=== PATIENT | male | born 1950 | race American Indian/Alaskan Native ===

== ENCOUNTER 2017-02-21 15:35 | Inpatient (IN) | payer MEDICARE, MEDICAID ==
[2017-02-21 15:35] VITALS: BMI 30.5
--- NOTE | 2017-02-21 16:48 | ED PDOC ---
Syncope/Near Syncope/Dizziness Time Seen by Provider: 02/21/17 15:52 Chief Complaint (Nursing): Syncope Chief Complaint (Provider): Syncope History Per: Patient History/Exam Limitations: no limitations Onset/Duration Of Symptoms: Days (2x) Current Symptoms Are (Timing): Still Present Activity At Onset Of Symptoms: Sitting Fall Associated With With Symptoms: Yes, Positive Injury (patient fell on his head, complains of right hip and lower back pain.) Severity: Moderate Additional Complaint(s): 66 year old male with a pertinent medical history of end stage renal disease presents to the ED with complaints of 2 episodes of syncope that occurred yesterday. He reports that he was watching tv yesterday, and passed out 2x times. On the second time, he fell on his head, and now has complaints of right hip and lower back pain. He also reports that he missed dialysis today. Patient denies having any other medical complaints. PMD: Dr. Byers (Non-[facility] provider). Past Medical History Reviewed: Historical Data, Nursing Documentation, Vital Signs Vital Signs: Last Vital Signs Temp 97.8 F 02/21/17 15:37 Pulse 82 02/21/17 15:37 Resp 18 02/21/17 15:37 BP 151/88 H 02/21/17 15:37 Pulse Ox 96 02/21/17 15:37 - Medical History PMH: Anemia, Cardia Arrhythmia, CHF, HTN, Peripheral Edema, Pneumonia (2006), End Stage Renal Disease (on dialysis MWF left arm shunt), Chronic Kidney Disease Denies: Kidney Stones - Surgical History Surgical History: Pacemaker, Tonsillectomy - Family History Family History: States: CAD, Hypertension - Social History Current smoker - smoking cessation education provided: No Alcohol: None Drugs: Denies - Immunization History Hx Tetanus Toxoid Vaccination: No Hx Influenza Vaccination: Yes Hx Pneumococcal Vaccination: Yes - Home Medications Home Medications: Ambulatory Orders Medication Instructions Recorded Amiodarone HCl [Amiodarone HCl] 100 mg PO DAILY 02/21/17 Aspirin [Ecotrin] 81 mg PO DAILY 02/21/17 Losartan [Cozaar] 50 mg PO DAILY 02/21/17 Sevelamer Carbonate [Renvela] 2,400 mg PO TID 02/21/17 Vit B Cmplx 3/Folic AC/C/Biot 1 tab PO DAILY 02/21/17 [Amara-Jacqueline Rx Tablet] amLODIPine [Norvasc] 5 mg PO DAILY 02/21/17 - Allergies Allergies/Adverse Reactions: Allergies Allergy/AdvReac Type Severity Reaction Status Date / Time venice inhibitors Allergy Mild ANAPHYLAXIS Uncoded 11/29/16 20:14 Review of Systems ROS Statement: Except As Marked, All Systems Reviewed And Found Negative Musculoskeletal: Positive for: Back Pain (lower back pain), Other (right hip pain) Physical Exam - Reviewed Nursing Documentation Reviewed: Yes Vital Signs Reviewed: Yes - Physical Exam Appears: Positive for: Well (Patient is uncooperative during physcial exam), Non -toxic, No Acute Distress Head Exam: Positive for: ATRAUMATIC, NORMOCEPHALIC Skin: Positive for: Normal Color, Warm, Dry Cardiovascular/Chest: Positive for: Regular Rate, Rhythm Respiratory: Positive for: Normal Breath Sounds. Negative for: Respiratory Distress Extremity: Positive for: Other (right hip pain) Neurologic/Psych: Positive for: Alert, Oriented (3x) - Laboratory Results Result Diagrams: 02/22/17 05:00 02/22/17 05:00 - ECG Interpretation Of ECG: SR @ 62, 1st degree AVB, RBBB. O2 Sat by Pulse Oximetry: 96 (RA) Pulse Ox Interpretation: Normal - CT Scan/US CT head Other Rad Studies (CT/US): Radiology Report Reviewed (No evidence of acute intracranial hemorrhage intracranial collection mass effect or midline shift. Efuw-mp-uupdoswp atrophy and segd-zz-ritsowsk white matter changes likely represent chronic microvascular ischemic disease.) CT R hip Other Rad Studies (CT/US): Radiology Report Reviewed (No evidence of acute fracture or dislocation at the right hip. Mild to moderate osteoarthritic changes. Ubzr-wq-bgjoltzz subcutaneous stranding seen adjacent to the right hip likely represent posttraumatic changes. ) - Physician Consult Information Physician Contacted: Morgan Rayo Outcome Of Conversation: Labs discussed, K WNL, will dialyze tomorrow. Medical Decision Making Medical Decision Makin:52 Initial impression: 66 year old female with syncope, back pain, hip pain, and missed dialysis. Initial plan: * CT head w/o contrast * CT hip w/o contrast * CT lumbar spine w/o contrast * EKG * BMP * CMP * troponin I * udip * CBC * PT/PTT * accucheck * urinalysis * reevaluation Scribe Attestation: Documented by Robyn Wilkes, acting as a scribe for Joanna Adnres MD. Provider Scribe Attestation: All medical record entries made by the Scribe were at my direction and personally dictated by me. I have reviewed the chart and agree that the record accurately reflects my personal performance of the history, physical exam, medical decision making, and the department course for this patient. I have also personally directed, reviewed, and agree with the discharge instructions and disposition. Disposition - Clinical Impression Clinical Impression: Syncope, ESRD needing dialysis - Patient ED Disposition Is Patient to be Admitted: Yes - Disposition Disposition Time: 18:14 Condition: STABLE - Pt Status Changed To: Hospital Disposition Of: Inpatient - Admit Certification Admit to Inpatient:: After my assessment, the patient will require hospitalization for at least two midnights. This is because of the severity of symptoms shown, intensity of services needed, and/or the medical risk in this patient being treated as an outpatient. - POA Present On Arrival: Falls Or Trauma
[2017-02-21 17:11] LABS: BASO % 1.1 % (0.0-2.0); EOS # 0.2 K/uL (0.0-0.7); EOS % 4.7 % (0.0-4.0); HEMATOCRIT 35.5 % (35.0-51.0); LYMPH # 0.5 K/uL (1.0-4.3); LYMPH % 14.5 % (20.0-40.0); MEAN CELL VOLUME 104.1 fl (80.0-94.0); MEAN CORPUSCULAR HGB CONC 32.7 g/dL (33.0-37.0); MEAN PLATELET VOLUME 7.6 fl (7.2-11.7); MONO # 0.7 K/uL (0.0-0.8); MONO % 18.6 % (0.0-10.0); NEUT # 2.3 K/uL (1.8-7.0); NEUT % 61.1 % (50.0-75.0); NRBC % 0.1 % (0.0-0.0); WHITE BLOOD COUNT 3.8 K/uL (4.8-10.8)
[2017-02-21 17:30] LABS: ALB/GLOB RATIO 0.9 (1.0-2.1); BILIRUBIN,TOTAL 0.7 mg/dl (0.2-1.3); CALCIUM 9.2 mg/dL (8.4-10.2); TOTAL PROTEIN 8.4 G/DL (6.3-8.2)
[2017-02-21 17:43] LABS: TROPONIN I 0.02 ng/mL (0.00-0.120)
[2017-02-21 17:50] LABS: PARTIAL THROMBOPLASTIN TIME 39.2 Seconds (25.6-37.1)
--- NOTE | 2017-02-21 17:58 | CT ---
PROCEDURE: CT HEAD WITHOUT CONTRAST. HISTORY: Vertigo COMPARISON: None available. TECHNIQUE: Axial computed tomography images were obtained through the head/brain without intravenous contrast. Radiation dose: Total exam DLP = 904.06 mGy-cm. This CT exam was performed using one or more of the following dose reduction techniques: Automated exposure control, adjustment of the mA and/or kV according to patient size, and/or use of iterative reconstruction technique. FINDINGS: HEMORRHAGE: No intracranial hemorrhage. BRAIN: No mass effect or edema. Wgro-vp-iobucpun atrophy is noted. Vwol-wf-ndzzlsrj white matter changes are also noted suggestive but nonspecific for chronic microvascular ischemic disease. VENTRICLES: Unremarkable. No hydrocephalus. CALVARIUM: Unremarkable. PARANASAL SINUSES: Unremarkable as visualized. No significant inflammatory changes. MASTOID AIR CELLS: Unremarkable as visualized. No inflammatory changes. OTHER FINDINGS: Suboptimal assessment of the posterior fossa due to the patient's position and streak artifacts. IMPRESSION: No evidence of acute intracranial hemorrhage intracranial collection mass effect or midline shift. Wptq-wl-etlkwvnx atrophy and ixqn-zi-wlqyfbne white matter changes likely represent chronic microvascular ischemic disease.
--- NOTE | 2017-02-21 18:36 | CT ---
PROCEDURE: CT of the right hip without contrast HISTORY: Fall COMPARISON: No prior similar study available for comparison. TECHNIQUE: 2.5 millimeter axial and reformatted coronal and sagittal CT images of the right hip were obtained without IV contrast administration. Total exam DLP: 257.57 FINDINGS: There is no evidence of acute displaced fracture or dislocation at the right hip. Subcutaneous stranding and possible small fluid seen adjacent and lateral to the right femur greater trochanter likely represent posttraumatic changes. No evidence of drainable fluid collection or large hematoma. There is well corticated ossicles seen adjacent to the right femur likely represent soft tissue/ligament calcification. No evidence of joint effusion. Slightly prominent right groin lymph nodes seen. IMPRESSION: No evidence of acute fracture or dislocation at the right hip. Mild to moderate osteoarthritic changes. Llnc-ju-mivnxbwh subcutaneous stranding seen adjacent to the right hip likely represent posttraumatic changes. .
[2017-02-22 07:10] LABS: HEMATOCRIT 33.6 % (35.0-51.0); MEAN CELL VOLUME 103.4 fl (80.0-94.0); MEAN CORPUSCULAR HEMOGLOBIN 33.8 pg (27.0-31.0); MEAN CORPUSCULAR HGB CONC 32.7 g/dL (33.0-37.0); RED CELL DISTRIBUTION WIDTH 17.8 % (11.5-14.5); WHITE BLOOD COUNT 3.5 K/uL (4.8-10.8)
[2017-02-22 07:18] LABS: ALB/GLOB RATIO 0.9 (1.0-2.1); BILIRUBIN,TOTAL 0.7 mg/dl (0.2-1.3); CALCIUM 8.5 mg/dL (8.4-10.2); POTASSIUM 3.7 MMOL/L (3.6-5.0); TOTAL PROTEIN 7.5 G/DL (6.3-8.2)
--- NOTE | 2017-02-22 08:21 | CARD ---
APPROVED REPORT EKG Measurement Heart [id number] <Conclusion> Sinus rhythm with 1st degree AV block with premature atrial complexes Left axis deviation Non specific IVCD Left ventricular hypertrophy with repolarization abnormality Abnormal ECG
--- NOTE | 2017-02-22 08:54 | CT ---
PROCEDURE: CT Lumbar Spine without contrast HISTORY: Fall COMPARISON: None. TECHNIQUE: Axial computed tomography images were obtained of the lumbar spine without the use of intravenous contrast. Coronal and sagittal reformatted images were created and reviewed. Radiation dose: Total exam DLP = 1004.66 mGy-cm. This CT exam was performed using one or more of the following dose reduction techniques: Automated exposure control, adjustment of the mA and/or kV according to patient size, and/or use of iterative reconstruction technique. FINDINGS: VERTEBRAE: The vertebral bodies are maintained in height. There is extensive erosion/ destruction of the right lateral aspect of the L3-4 disc space with involvement of the inferior L 3 vertebral endplate and lesser involvement of the superior L4 vertebral endplate. There are large osteophytes seen about the anterior aspect of the disc space on the right side. There is extensive disc bulge. This most likely reflects chronic degenerative change with intravertebral disc herniation. The possibility of discitis/osteomyelitis must be considered, however, and clinical and laboratory is requested. There is a healing fracture of the right L2 transverse process. Callus is seen about the fracture site. There is a healing fracture of the right L3 transverse process with callus seen about the fracture site. There is an old fracture of the left L4 transverse process without evidence of callus spoke with sclerotic margins and likely nonunion. No other fracture is identified. DISCS/SPINAL CANAL/NEURAL FORAMINA: L1-2: Unremarkable. L2-3: Minimal disc bulge. No focal herniation. Minimal bilateral neural foraminal stenosis. No central spinal stenosis. L3-4: Extensive diffuse disc bulge without focal herniation. Bilateral ligamentum flavum hypertrophy and degenerative facet arthropathy. Small Schmorl's nodes in the inferior L3 and superior L4 vertebral endplates. Moderate to severe bilateral neural foraminal stenosis. Minimal central spinal stenosis. L4-5: Diffuse disc bulge. Destruction/ erosion of the right lateral aspect of the vertebral endplates about the disc space as described above. No focal disc herniation. Bilateral ligamentum flavum hypertrophy. Severe right neural foraminal stenosis. Moderate left neural foraminal stenosis. Mild central spinal stenosis. There is mild paraspinous soft tissue circumferentially about the L4-5 disc space. Again this may be a sign of discitis/osteomyelitis. L5-S1: Diffuse disc bulge. No focal disc herniation. Mild bilateral ligamentum flavum hypertrophy. Mild right and moderate left neural foraminal stenosis. No central spinal stenosis. There is mild levo scoliotic curvature. There is grade 1 lateral listhesis of L3 on L4. There is no other listhesis evident. PARASPINAL SOFT TISSUES: As above OTHER FINDINGS: None. IMPRESSION: Healing fracture right L2 and L3 transverse processes. Old fracture left L4 transverse process without evidence of callus but with nonunion. Questionable severe intravertebral disc herniation with endplate erosion versus discitis/osteomyelitis at L4-5. Multilevel disc bulge without evidence of focal herniation. Multilevel neural foraminal stenosis as above. Multilevel mild central spinal stenosis most pronounced at L3-4. Recommend further evaluation with MRI with gadolinium if there is clinical concern for discitis/osteomyelitis based on clinical and laboratory evaluation. This is potentially suspected at the L4-5 disc space level as above. Preliminary interpretation of this examination was reported by [facility] at 7:25 p.m. on 02/21/2017. There is concurrence of this report with the preliminary interpretation.
[2017-02-22] MEDS: Multivitamin Vitamin B Complex (Nephro-Vite) Tab PO SCH (09:10)
--- NOTE | 2017-02-22 09:49 | CP.PCM.CON ---
History of Present Illness - History of Present Illness History of Present Illness: This patient who is 66 years old was admitted because of syncope more than once I told him for which she came to the emergency room. Patient known with end stage renal disease on maintenance hemodialysis for about 10 years. She has history of hypertension and no diabetes was described and perhaps peripheral vascular disease? Patient usually goes to dialysis unit with 3 hours and 30 to 3 hours and 45 minutes` Review of system as noted Past medical surgery as noted the has a shunt of the left upper arm No chest pain reported patient has pacemaker he described it wireless Review of Systems - Constitutional Constitutional: Anorexia. absent: Chills - EENT Eyes: As Per HPI Nose/Mouth/Throat: absent: Epistaxis - Cardiovascular Cardiovascular: Dyspnea on Exertion, Lightheadedness. absent: Chest Pain - Respiratory Respiratory: absent: Cough - Gastrointestinal Gastrointestinal: absent: Abdominal Pain - Genitourinary Genitourinary: Nocturia - Musculoskeletal Musculoskeletal: Muscle Weakness - Neurological Neurological: Frequent Falls Past Patient History - Infectious Disease Hx of Infectious Diseases: None - Past Medical History & Family History Past Medical History?: Yes - Past Social History Smoking Status: Never Smoked - CARDIAC Hx Cardiac Disorders: Yes Hx Congestive Heart Failure: Yes Hx Hypertension: Yes Hx Pacemaker: Yes Hx Peripheral Edema: Yes - PULMONARY Hx Pneumonia: Yes (2006) - NEUROLOGICAL Hx Neurological Disorder: Yes Hx Syncope: Yes Other/Comment: COMATOSE 1 MONTH 2008 DUE TO RENAL FAILURE - HEENT Hx HEENT Problems: No Other/Comment: L - RENAL Hx Chronic Kidney Disease: Yes Hx Dialysis: Yes - ENDOCRINE/METABOLIC Hx Endocrine Disorders: No - HEMATOLOGICAL/ONCOLOGICAL Hx AIDS: No Hx Anemia: Yes Hx Human Immunodeficiency Virus (HIV): No - INTEGUMENTARY Hx Dermatological Problems: Yes Other/Comment: CHRONIC PRIRITUS - MUSCULOSKELETAL/RHEUMATOLOGICAL Hx Musculoskeletal Disorders: No Hx Falls: Yes - GASTROINTESTINAL Hx Gastrointestinal Disorders: Yes Other/Comment: ABD HERNIA HISTORY FEEDING TUBE INSERTION AND REMOVAL - GENITOURINARY/GYNECOLOGICAL Hx Genitourinary Disorders: No - PSYCHIATRIC Hx Psychophysiologic Disorder: No Hx Substance Use: No - SURGICAL HISTORY Hx Tonsillectomy: Yes - ANESTHESIA Hx Anesthesia: Yes Hx Anesthesia Reactions: No Hx Malignant Hyperthermia: No Meds Allergies/Adverse Reactions: Allergies Allergy/AdvReac Type Severity Reaction Status Date / Time venice inhibitors Allergy Mild ANAPHYLAXIS Uncoded 11/29/16 20:14 - Medications Medications: Current Medications Amiodarone HCl (Cordarone) 100 mg PO DAILY [facility] Last Admin: 02/22/17 09:11 Dose: 100 mg Amlodipine Besylate (Norvasc) 5 mg PO DAILY [facility] Last Admin: 02/22/17 09:09 Dose: Not Given Aspirin (Ecotrin) 81 mg PO DAILY [facility] Last Admin: 02/22/17 09:10 Dose: 81 mg Ibuprofen (Motrin Tab) 600 mg PO Q6 PRN PRN Reason: Pain, moderate (4-7) Last Admin: 02/22/17 01:06 Dose: 600 mg Losartan Potassium (Cozaar) 50 mg PO DAILY [facility] Last Admin: 02/22/17 09:08 Dose: Not Given Sevelamer HCl (Renagel) 2,400 mg PO TID [facility] Last Admin: 02/22/17 09:10 Dose: 2,400 mg Vitamin B Complex/Vit C/Folic Acid (Nephro-Jacqueline) 1 tab PO DAILY [facility] Last Admin: 02/22/17 09:10 Dose: 1 tab Physical Exam - Constitutional Appears: No Acute Distress - ENT Exam ENT Exam: Mucous Membranes Moist - Respiratory Exam Respiratory Exam: NORMAL BREATHING PATTERN. absent: Chest Wall Tenderness - Cardiovascular Exam Cardiovascular Exam: absent: JVD, Rubs - GI/Abdominal Exam GI & Abdominal Exam: Normal Bowel Sounds - Extremities Exam Extremities exam: Negative for: calf tenderness - Back Exam Back exam: absent: CVA tenderness (L), CVA tenderness (R) - Neurological Exam Neurological exam: Alert Results - Vital Signs Recent Vital Signs: Last Vital Signs Temp 97.1 F L 02/22/17 08:00 Pulse 54 L 02/22/17 09:11 Resp 20 02/22/17 08:00 BP 145/76 02/22/17 09:11 Pulse Ox 98 02/22/17 08:00 - Labs Result Diagrams: 02/22/17 05:00 02/22/17 05:00 Labs: Laboratory Results - last 24 hr 02/22/17 02/22/17 05:00 05:00 WBC 3.5 L RBC 3.24 L Hgb 11.0 L Hct 33.6 L MCV 103.4 H MCH 33.8 H MCHC 32.7 L RDW 17.8 H Plt Count 165 ESR 37 H Sodium 138 Potassium 3.7 Chloride 94 L Carbon Dioxide 32 H Anion Gap 16 BUN 77 H Creatinine 10.3 H* Est GFR ( Amer) 6 Est GFR (Non-Af Amer) 5 Random Glucose 73 L Calcium 8.5 Total Bilirubin 0.7 AST 22 ALT 29 Alkaline Phosphatase 113 Total Protein 7.5 Albumin 3.5 Globulin 4.0 H Albumin/Globulin Ratio 0.9 L Assessment & Plan (1) Syncope Status: Acute - Assessment and Plan (Free Text) Assessment: Patient with end stage renal disease due to have dialysis this morning , arrangement has been done and consent was taken Patient stated did take from him about 2 L approximately Potassium bath 2 mEq Sodium bath 138 Bicarbonate bath 34 Ultrafiltration about 2000 as tolerated Patient been having workup for the syncope cardiac evaluation as well.
--- NOTE | 2017-02-22 11:01 | CP.PCM.PN ---
Subjective - Date & Time of Evaluation Date of Evaluation: 02/22/17 Time of Evaluation: 11:01 - Subjective Subjective: pt seen and examined at bedside this morning. No acute events overnight. Lying in bed, comfortably, NAD. Reports feeling better this morning and slept well overnight. No new complaints. Denies fever/chills, headaches, changes in vision , CP/SOB/MILLER/palpitations, N/V/D/C, urinary symptoms, new onset numbness/ tingling. Objective - Vital Signs/Intake and Output Vital Signs (last 24 hours): Temp Pulse Resp BP Pulse Ox 97.1 F L 67 20 168/87 H 96 02/22/17 08:00 02/22/17 09:50 02/22/17 08:00 02/22/17 09:50 02/22/17 10:51 - Medications Medications: Current Medications Amiodarone HCl (Cordarone) 100 mg PO DAILY [facility] Last Admin: 02/22/17 09:11 Dose: 100 mg Amlodipine Besylate (Norvasc) 5 mg PO DAILY [facility] Last Admin: 02/22/17 09:09 Dose: Not Given Aspirin (Ecotrin) 81 mg PO DAILY [facility] Last Admin: 02/22/17 09:10 Dose: 81 mg Ibuprofen (Motrin Tab) 600 mg PO Q6 PRN PRN Reason: Pain, moderate (4-7) Last Admin: 02/22/17 01:06 Dose: 600 mg Losartan Potassium (Cozaar) 50 mg PO DAILY [facility] Last Admin: 02/22/17 09:08 Dose: Not Given Sevelamer HCl (Renagel) 2,400 mg PO TID [facility] Last Admin: 02/22/17 09:10 Dose: 2,400 mg Vitamin B Complex/Vit C/Folic Acid (Nephro-Jacqueline) 1 tab PO DAILY [facility] Last Admin: 02/22/17 09:10 Dose: 1 tab - Labs Labs: 02/22/17 05:00 02/22/17 05:00 PT 13.8 Seconds (9.8-13.1) H 02/21/17 17:14 INR 1.2 (0.9-1.2) 02/21/17 17:14 APTT 39.2 Seconds (25.6-37.1) H 02/21/17 17:14 - Constitutional Appears: Non-toxic, No Acute Distress - Eye Exam Eye Exam: EOMI Pupil Exam: PERRL - ENT Exam ENT Exam: Mucous Membranes Moist - Respiratory Exam Respiratory Exam: Clear to Ausculation Bilateral, NORMAL BREATHING PATTERN. absent: Accessory Muscle Use, Rales, Rhonchi, Wheezes - Cardiovascular Exam Cardiovascular Exam: REGULAR RHYTHM, RRR, +S1, +S2. absent: Tachycardia, Gallop , Rubs, Murmur - GI/Abdominal Exam GI & Abdominal Exam: Soft, Normal Bowel Sounds. absent: Distended, Firm, Guarding, Rigid, Tenderness - Extremities Exam Additional comments: hyperkeratosis b/l with profuse skin flaking. No edema, erythema, discharge - Neurological Exam Neurological Exam: Alert, Awake, Oriented x3 Assessment and Plan (1) Syncope Assessment & Plan: -placed on telemetry for monitoring -pt has pacemaker placed -neurology consult appreciated -CMP remarkable for Cr of 10.3, otherwise wnl -CBC wnl -carotid/vertebral doppler: pending Status: Acute (2) ESRD needing dialysis Assessment & Plan: -nephrology consult with Dr. Rayo -pt to go for HD today, consent signed Status: Chronic (3) Hyperkeratosis Assessment & Plan: podiatry consult appreciated Status: Acute
--- NOTE | 2017-02-22 13:27 | US ---
PROCEDURE: Carotid vertebral duplex sonography. HISTORY: Syncope COMPARISON: None available. TECHNIQUE: Grayscale, color Doppler and spectral Doppler assessment of the carotid system bilaterally. This includes common carotid, internal carotid arteries Vertebral artery assessment with respect to direction of flow (antegrade or retrograde) FINDINGS: RIGHT carotid system: Assessment of plaque: Tortuous right ICA. Heterogeneous partially calcified plaque identified. Peak systolic ICA velocity: 207.9 cm/sec End-diastolic velocity: 37.9 cm/sec ICA/CCA ratio: 3.3 Vertebral artery flow: Antegrade LEFT carotid system: Assessment of plaque: Tortuous left ICA. Heterogeneous plaque formation. Peak systolic ICA velocity: 121.8 cm/sec End-diastolic velocity: 21.2 cm/sec ICA/CCA ratio: 1.4 Vertebral artery flow: Antegrade IMPRESSION: Right ICA degree of stenosis: 50- 69%. Left ICA degree of stenosis: Less than 50% Reference Internal Carotid Artery (ICA) Peak Systolic Velocity (PSV) for above: 1. Less than 50% stenosis less than 125 cm/s peak systolic velocity 2. 50-69% stenosis 125-230cm/s peak systolic velocity 3. Greater than 70% but less than near occlusion greater than 230 cm/s peak systolic velocity
[2017-02-23 08:50] LABS: ALB/GLOB RATIO 0.8 (1.0-2.1); BILIRUBIN,TOTAL 0.8 mg/dl (0.2-1.3); CALCIUM 8.7 mg/dL (8.4-10.2); TOTAL PROTEIN 8.1 G/DL (6.3-8.2)
[2017-02-23] MEDS: Multivitamin Vitamin B Complex (Nephro-Vite) Tab PO SCH (09:28)
--- NOTE | 2017-02-23 09:48 | CP.PCM.HP ---
History of Present Illness - History of Present Illness History of Present Illness: 66 y/o male with a PMHx remarkable for HTN, ESRD presented to the ED with complaints of 2 episodes of syncope that occurred 02/21/2017. He reports that he was watching tv, and passed out suddenly 2x times. On the second time, he fell on his head, and now has complaints of right hip and lower back pain. Both episodes of syncope where with sudden loss of consicousness and with sudden regaining of consciousness as well. He denies any post syncopal confusion, delerium, lethargy, N/V. He also reports that he missed dialysis appt on 02/22. No other complaints. Denies fever/chills, headaches, changes in vision, CP/SOB/ MILLER, N/V/D/C, urinary symptoms, numbness/tingling. PMD: Dr. Byers (nephro) PMHx: ESRD, on weekly dialysis, HTN Meds: Sevelamer, Amiodarone, Losartan, Aspirin, Amlodipine ALL: Brandon Inhibitors SocialHx: lives by himself, denies ETOH, tobacco, drug abuse FamilyHx: noncontributory ED COURSE: Vitals On Presentation: 97.8, BP 151/88, HR 82, RR 16, POX 96% on 2 L NC Imaging Ordered: CT head w/o contrast CT hip w/o contrast CT lumbar spine w/o contrast EKG Labs Ordered: BMP CMP troponin I udip CBC PT/PTT accucheck urinalysis Pt admitted to telemetry Present on Admission - Present on Admission Any Indicators Present on Admission: No Review of Systems - Review of Systems All systems: reviewed and no additional remarkable complaints except - Constitutional Constitutional: As Per HPI Past Patient History - Infectious Disease Hx of Infectious Diseases: None - Past Medical History & Family History Past Medical History?: Yes - Past Social History Smoking Status: Never Smoked Alcohol: None Drugs: Denies Home Situation {Lives}: Alone Domestic Violence: Negative - CARDIAC Hx Cardia Arrhythmia: Yes Hx Congestive Heart Failure: Yes Hx Hypertension: Yes Hx Pacemaker: Yes Hx Peripheral Edema: Yes - PULMONARY Hx Pneumonia: Yes (2006) - NEUROLOGICAL Hx Neurological Disorder: Yes Hx Syncope: Yes Other/Comment: COMATOSE 1 MONTH 2007 DUE TO RENAL FAILURE - HEENT Hx HEENT Problems: No Other/Comment: L - RENAL Hx Chronic Kidney Disease: Yes Hx Kidney Stones: No - ENDOCRINE/METABOLIC Hx Endocrine Disorders: No - HEMATOLOGICAL/ONCOLOGICAL Hx Anemia: Yes - INTEGUMENTARY Hx Dermatological Problems: Yes Other/Comment: CHRONIC PRIRITUS - GASTROINTESTINAL Hx Gastrointestinal Disorders: Yes Other/Comment: ABD HERNIA HISTORY FEEDING TUBE INSERTION AND REMOVAL - GENITOURINARY/GYNECOLOGICAL Hx Genitourinary Disorders: No - PSYCHIATRIC Hx Psychophysiologic Disorder: No Hx Substance Use: No - SURGICAL HISTORY Hx Tonsillectomy: Yes - ANESTHESIA Hx Anesthesia: Yes Hx Anesthesia Reactions: No Hx Malignant Hyperthermia: No Meds Allergies/Adverse Reactions: Allergies Allergy/AdvReac Type Severity Reaction Status Date / Time brandon inhibitors Allergy Mild ANAPHYLAXIS Uncoded 11/29/16 20:14 Physical Exam - Constitutional Appears: Non-toxic, No Acute Distress - Head Exam Head Exam: ATRAUMATIC, NORMOCEPHALIC - Eye Exam Eye Exam: EOMI. absent: Conjunctival injection, Scleral icterus Pupil Exam: PERRL - ENT Exam ENT Exam: Mucous Membranes Moist - Neck Exam Neck exam: Positive for: Full Rom. Negative for: Lymphadenopathy, Tenderness, Thyromegaly - Respiratory Exam Respiratory Exam: Clear to Auscultation Bilateral, NORMAL BREATHING PATTERN. absent: Chest Wall Tenderness, Rales, Rhonchi, Wheezes - Cardiovascular Exam Cardiovascular Exam: REGULAR RHYTHM, RRR, +S1, +S2. absent: Tachycardia, Gallop , JVD, Rubs, Systolic Murmur - GI/Abdominal Exam GI & Abdominal Exam: Normal Bowel Sounds, Soft. absent: Distended, Firm, Guarding, Rigid - Extremities Exam Extremities exam: Positive for: full ROM, pedal pulses present. Negative for: calf tenderness, joint swelling, pedal edema, tenderness Additional comments: diffuse hyperkeratosis b/l, unkept, macronychia. - Neurological Exam Neurological exam: Alert, CN II-XII Intact, Oriented x3 - Psychiatric Exam Psychiatric exam: Normal Affect, Normal Mood - Skin Skin Exam: Dry, Intact Results - Vital Signs Recent Vital Signs: Last Vital Signs Temp 97.6 F 02/23/17 08:35 Pulse 65 02/23/17 09:30 Resp 20 02/23/17 08:35 BP 114/66 02/23/17 09:30 Pulse Ox 97 02/23/17 08:35 - Labs Result Diagrams: 02/22/17 05:00 02/23/17 07:40 Labs: Laboratory Results - last 24 hr 02/22/17 02/22/17 02/22/17 14:30 14:30 15:57 Sodium Potassium Chloride Carbon Dioxide Anion Gap BUN Creatinine Est GFR ( Amer) Est GFR (Non-Af Amer) POC Glucose (mg/dL) 97 Random Glucose Calcium Total Bilirubin AST ALT Alkaline Phosphatase Total Protein Albumin Globulin Albumin/Globulin Ratio Hep Bs Antigen Negative Hep Bs Antibody Negative Hepatitis C Antibody Reactive H 02/22/17 02/23/17 21:34 07:40 Sodium 136 Potassium 4.0 Chloride 99 Carbon Dioxide 26 Anion Gap 15 BUN 41 H Creatinine 6.7 H Est GFR ( Amer) 10 Est GFR (Non-Af Amer) 8 POC Glucose (mg/dL) 169 H Random Glucose 65 L Calcium 8.7 Total Bilirubin 0.8 AST 24 ALT 22 Alkaline Phosphatase 109 Total Protein 8.1 Albumin 3.6 Globulin 4.5 H Albumin/Globulin Ratio 0.8 L Hep Bs Antigen Hep Bs Antibody Hepatitis C Antibody Assessment & Plan (1) Syncope Assessment and Plan: Labs and imaging reviewed CBC wnl CMP: K+ wnl, BUN 73, Cr 9.3 Carotid u/s: YULIANA 50-69% stenosis, LICA <50% stenosis Head CT: chronic changes, no acute hemorrhage or injury Hip CT: negative to acute fracture/dislocation EKG: SR, 1st degree AV block, PAC, nonspecific ICVD cardiology consult appreciated neurology consult appreciated Status: Acute (2) ESRD needing dialysis Assessment and Plan: Nephrology consults appreciated (Dr. Rayo) -pt for HDL 02/22 -will f/u CMP Status: Chronic (3) Hyperkeratosis Assessment and Plan: podiatry consult appreciated Status: Chronic (4) Hypertension Assessment and Plan: c/w home meds Status: Chronic
--- NOTE | 2017-02-23 12:38 | CP.PCM.CON ---
History of Present Illness - History of Present Illness History of Present Illness: NEURO CONSULT NOTE: 02/23/17 CHIEF COMPLAINT: SYNCOPE HPI: THIS IS A 66 YEAR OLD AAM WITH HISTORY OF ESRD ON HD, HTN, HLD, CARDIOMYOPATHY S /P AICD HAD TWO SYNCOPAL EPISODES AT HOME. NO SEIZURES LIKE SYMPTOMS OR EPISODES. CT HEAD SHOWED NO ACUTE ABNORMALITY. CAROTID DOPPLER RIGHT ICA STENOSIS 50-69% AND 20-39% LEFT ICA STENOSIS. NEURO EXAM IS NON-FOCAL. CURRENT NO FURTHER SYNCOPAL EPISODES. HE IS DECONDITIONED. ROS: 14 POINT REVIEW OF SYMPTOMS IS NEGATIVE PER HPI. ALLERGIES: WOODY INHIBITORS SOCIAL HISTORY: NO ILLICIT DRUG USE, SMOKING, OR ETOH USE. FAMILY: NON CONTRIBUTORY. MEDICATIONS: REVIEWED BY NURSE'S RECONCILIATION SHEET. PAST MEDICAL HISTORY: ESRD ON HD, HTN, HLD, CARDIOMYOPATHY S/P AICD PHYSICAL EXAM: VITAL SIGNS: REVIEWED BY THE CHART GENERAL EXAM: PATIENT SEEN IN BED, IN NO ACUTE DISTRESS HEENT: PERRLA, EOMI, NECK SUPPLE, NO JVD, NO ADENOPATHY CVS: S1, S2, RRR, NO MURMURS NOTED LUNGS: CLEAR TO AUSCULTATION, NO ADVENTITIOUS SOUNDS ABDOMEN: SOFT AND NONTENDER EXTREMITIES: NO CLUBBING OR CYANOSIS. PP 2+ B/L NEURO: PT IS ALERT AND ORIENTED TO PERSON, PLACE, AND YEAR. , RECALL TO 5 MINUTES 1/3, SPEECH IS FLUENT WITHOUT ERRORS, CN II-XII INTACT, MOTOR EXAM: NORMAL TONE, NORMAL BULK OF MUSCLE, MOVES ALL EXTREMITIES EQUALLY, NO PRONATOR DRIFT SEEN. SENSORY EXAM: LIGHT TOUCH, PIN PRICK UP TO CALVES B/L, PROPRIOCEPTION , VIBRATION ARE INTACT B/L DEEP TENDON REFLEXES: 1+ THROUGHOUT. COORDINATION: FINGER TO NOSE IS INTACT. HEEL TO RAMOS IS INTACT GAIT: DEFERRED FOR NOW LABS: REVIEWED BY THE CHART. ASSESSMENT AND PLAN: THIS IS A 66 YEAR OLD AAM WITH HISTORY OF ESRD ON HD, HTN, HLD, CARDIOMYOPATHY S /P AICD HAD TWO SYNCOPAL EPISODES AT HOME. NO SEIZURES LIKE SYMPTOMS OR EPISODES. CT HEAD SHOWED NO ACUTE ABNORMALITY. CAROTID DOPPLER RIGHT ICA STENOSIS 50-69% AND 20-39% LEFT ICA STENOSIS. NEURO EXAM IS NON-FOCAL. CURRENT NO FURTHER SYNCOPAL EPISODES. HE IS DECONDITIONED. IMPRESSION: SYNCOPAL EPISODES SEEMS MORE A VASOVAGAL COMPONENT, NOT SEIZURE LIKE. 1. ASA 81 MG FOR STROKE PREVENTION 2.AICD INTEROGATION, CARDIAC FOLLOW UP 3. MONITOR ELECTROLYTES AND CORRECT ACCORDINGLY. F/U WITH NEPHRO FOR ESRD. 4. PHYSICAL THERAPY EVALUATION FOR UNSTEADY GAIT AND DECONDITIONED STATE. CONSIDER QUINN. THANK YOU, C/W MEDICAL MANAGMENT. Ashlee CAMACHO MD Past Patient History - Infectious Disease Hx of Infectious Diseases: None - Past Medical History & Family History Past Medical History?: Yes - Past Social History Smoking Status: Never Smoked Alcohol: None Drugs: Denies Home Situation {Lives}: Alone Domestic Violence: Negative - CARDIAC Hx Cardia Arrhythmia: Yes Hx Congestive Heart Failure: Yes Hx Hypertension: Yes Hx Pacemaker: Yes Hx Peripheral Edema: Yes - PULMONARY Hx Pneumonia: Yes (2006) - NEUROLOGICAL Hx Neurological Disorder: Yes Hx Syncope: Yes Other/Comment: COMATOSE 1 MONTH 2007 DUE TO RENAL FAILURE - HEENT Hx HEENT Problems: No Other/Comment: L - RENAL Hx Chronic Kidney Disease: Yes Hx Kidney Stones: No - ENDOCRINE/METABOLIC Hx Endocrine Disorders: No - HEMATOLOGICAL/ONCOLOGICAL Hx Anemia: Yes - INTEGUMENTARY Hx Dermatological Problems: Yes Other/Comment: CHRONIC PRIRITUS - GASTROINTESTINAL Hx Gastrointestinal Disorders: Yes Other/Comment: ABD HERNIA HISTORY FEEDING TUBE INSERTION AND REMOVAL - GENITOURINARY/GYNECOLOGICAL Hx Genitourinary Disorders: No - PSYCHIATRIC Hx Psychophysiologic Disorder: No Hx Substance Use: No - SURGICAL HISTORY Hx Tonsillectomy: Yes - ANESTHESIA Hx Anesthesia: Yes Hx Anesthesia Reactions: No Hx Malignant Hyperthermia: No Meds Allergies/Adverse Reactions: Allergies Allergy/AdvReac Type Severity Reaction Status Date / Time woody inhibitors Allergy Mild ANAPHYLAXIS Uncoded 11/29/16 20:14 - Medications Medications: Current Medications Amiodarone HCl (Cordarone) [address] [facility] Last Admin: 02/23/17 09:29 Dose: 100 mg Amlodipine Besylate (Norvasc) [address] [facility] Last Admin: 02/23/17 09:29 Dose: 5 mg Aspirin (Ecotrin) [address] [facility] Last Admin: 02/23/17 09:28 Dose: 81 mg Ibuprofen (Motrin Tab) 600 mg PO Q6 PRN PRN Reason: Pain, moderate (4-7) Last Admin: 02/23/17 09:44 Dose: 600 mg Losartan Potassium (Cozaar) [address] [facility] Last Admin: 02/23/17 09:30 Dose: 50 mg Sevelamer HCl (Renagel) 2,400 mg PO TID [facility] Last Admin: 02/23/17 09:28 Dose: 2,400 mg Vitamin B Complex/Vit C/Folic Acid (Nephro-Jacqueline) 1 tab PO DAILY [facility] Last Admin: 02/23/17 09:28 Dose: 1 tab Results - Vital Signs Recent Vital Signs: Last Vital Signs Temp 97.6 F 02/23/17 08:35 Pulse 65 02/23/17 09:30 Resp 20 02/23/17 08:35 BP 114/66 02/23/17 09:30 Pulse Ox 97 02/23/17 08:35 - Labs Result Diagrams: 02/22/17 05:00 02/23/17 07:40 Labs: Laboratory Results - last 24 hr 02/22/17 02/22/17 02/22/17 14:30 14:30 15:57 Sodium Potassium Chloride Carbon Dioxide Anion Gap BUN Creatinine Est GFR ( Amer) Est GFR (Non-Af Amer) POC Glucose (mg/dL) 97 Random Glucose Calcium Total Bilirubin AST ALT Alkaline Phosphatase Total Protein Albumin Globulin Albumin/Globulin Ratio Hep Bs Antigen Negative Hep Bs Antibody Negative Hepatitis C Antibody Reactive H 02/22/17 02/23/17 21:34 07:40 Sodium 136 Potassium 4.0 Chloride 99 Carbon Dioxide 26 Anion Gap 15 BUN 41 H Creatinine 6.7 H Est GFR ( Amer) 10 Est GFR (Non-Af Amer) 8 POC Glucose (mg/dL) 169 H Random Glucose 65 L Calcium 8.7 Total Bilirubin 0.8 AST 24 ALT 22 Alkaline Phosphatase 109 Total Protein 8.1 Albumin 3.6 Globulin 4.5 H Albumin/Globulin Ratio 0.8 L Hep Bs Antigen Hep Bs Antibody Hepatitis C Antibody
--- NOTE | 2017-02-23 23:08 | CP.PCM.CON ---
History of Present Illness - History of Present Illness History of Present Illness: 66 year old male with PMHx including HTN, ESRD was seen at bedside regarding b/ l LE dry skin, and intact bullae. Patient states that since he has been on dialysis his legs have been very dry and he has been getting bullae. He denies any pain to his LE. Denies n/v/f/c/sob/cp. Past Patient History - Infectious Disease Hx of Infectious Diseases: None - Past Medical History & Family History Past Medical History?: Yes - Past Social History Smoking Status: Never Smoked Alcohol: None Drugs: Denies Home Situation {Lives}: Alone Domestic Violence: Negative - CARDIAC Hx Cardia Arrhythmia: Yes Hx Congestive Heart Failure: Yes Hx Hypertension: Yes Hx Pacemaker: Yes Hx Peripheral Edema: Yes - PULMONARY Hx Pneumonia: Yes (2006) - NEUROLOGICAL Hx Neurological Disorder: Yes Hx Syncope: Yes Other/Comment: COMATOSE 1 MONTH 2007 DUE TO RENAL FAILURE - HEENT Hx HEENT Problems: No Other/Comment: L - RENAL Hx Chronic Kidney Disease: Yes Hx Kidney Stones: No - ENDOCRINE/METABOLIC Hx Endocrine Disorders: No - HEMATOLOGICAL/ONCOLOGICAL Hx Anemia: Yes - INTEGUMENTARY Hx Dermatological Problems: Yes Other/Comment: CHRONIC PRIRITUS - GASTROINTESTINAL Hx Gastrointestinal Disorders: Yes Other/Comment: ABD HERNIA HISTORY FEEDING TUBE INSERTION AND REMOVAL - GENITOURINARY/GYNECOLOGICAL Hx Genitourinary Disorders: No - PSYCHIATRIC Hx Psychophysiologic Disorder: No Hx Substance Use: No - SURGICAL HISTORY Hx Tonsillectomy: Yes - ANESTHESIA Hx Anesthesia: Yes Hx Anesthesia Reactions: No Hx Malignant Hyperthermia: No Meds Allergies/Adverse Reactions: Allergies Allergy/AdvReac Type Severity Reaction Status Date / Time venice inhibitors Allergy Mild ANAPHYLAXIS Uncoded 11/29/16 20:14 - Medications Medications: Current Medications Amiodarone HCl (Cordarone) 100 mg PO DAILY [facility] Last Admin: 02/23/17 09:29 Dose: 100 mg Amlodipine Besylate (Norvasc) 5 mg PO DAILY [facility] Last Admin: 02/23/17 09:29 Dose: 5 mg Aspirin (Ecotrin) 81 mg PO DAILY [facility] Last Admin: 02/23/17 09:28 Dose: 81 mg Ibuprofen (Motrin Tab) 600 mg PO Q6 PRN PRN Reason: Pain, moderate (4-7) Last Admin: 02/23/17 19:55 Dose: 600 mg Losartan Potassium (Cozaar) 50 mg PO DAILY [facility] Last Admin: 02/23/17 09:30 Dose: 50 mg Sevelamer HCl (Renagel) 2,400 mg PO TID [facility] Last Admin: 02/23/17 17:05 Dose: 2,400 mg Vitamin B Complex/Vit C/Folic Acid (Nephro-Jacqueline) 1 tab PO DAILY [facility] Last Admin: 02/23/17 09:28 Dose: 1 tab Physical Exam - Constitutional Appears: Non-toxic, No Acute Distress - Extremities Exam Additional comments: Vasc:DP and PT pulses non-palpable b/l. CFT < 5 seconds to all digits b/l. Skin temperature warm to warm from proximal to distal. Neuro:Gross sensation diminished b/l. Derm:Skin is well hydrated. No open lesions noted. Nails 1-5 b/l are elongated thickness and length. Skin is diffuesely xerotic b/l. On left anterior borjas, there is a large intact bullae, and a superfical ulceration where a previous bullae had opened which is draining serous fluid. On the leg by the tibial tuberosity is a superficial ulceration with a thick scab. No malodor, no erythema, no calor, no acute signs of infection noted Ortho:No pain on palpation to LE b/l - Neurological Exam Neurological exam: Alert, Oriented x3 - Psychiatric Exam Psychiatric exam: Normal Affect, Normal Mood Results - Vital Signs Recent Vital Signs: Last Vital Signs Temp 97.6 F 02/23/17 20:00 Pulse 56 L 02/23/17 20:00 Resp 18 02/23/17 20:00 BP 134/73 02/23/17 20:00 Pulse Ox 100 02/23/17 20:00 - Labs Result Diagrams: 02/22/17 05:00 02/23/17 07:40 Labs: Laboratory Results - last 24 hr 02/22/17 02/23/17 14:30 07:40 Sodium 136 Potassium 4.0 Chloride 99 Carbon Dioxide 26 Anion Gap 15 BUN 41 H Creatinine 6.7 H Est GFR ( Amer) 10 Est GFR (Non-Af Amer) 8 Random Glucose 65 L Calcium 8.7 Total Bilirubin 0.8 AST 24 ALT 22 Alkaline Phosphatase 109 Total Protein 8.1 Albumin 3.6 Globulin 4.5 H Albumin/Globulin Ratio 0.8 L Hepatitis C Antibody Reactive H Assessment & Plan - Assessment and Plan (Free Text) Assessment: 66 year old male with diffuse xerosis of the LE and bullae to the LLE Plan: patient examined and evaluated discussed in detail with attending, Dr. Woodson chart, labs, vitals reviewed LLE dressed with ABD, kerlix Lac hydrin to be ordered and applied to LE b/l BID podiatry will continue to follow patient while in house
--- NOTE | 2017-02-24 08:54 | CP.PCM.PN ---
Subjective - Date & Time of Evaluation Date of Evaluation: 02/24/17 Time of Evaluation: 07:40 - Subjective Subjective: 66 y/o male seen at bedside for b/l LE dry skin and intact bullae on the left leg. Pt appears to be resting comfortably and is in no acute distress. Pt is AAOx3 and responds to verbal commands. Pt denies of any acute overnight events. Pt denies of any pain in his feet today. Pt states that since he has been on dialysis his legs have been very dry and he has been getting bullae. Pt denies of any recent F/N/V/C/SOB today. Pt denies of any other pedal complains as of today. Objective - Vital Signs/Intake and Output Vital Signs (last 24 hours): Temp Pulse Resp BP Pulse Ox 96.3 F L 56 L 18 158/74 H 95 02/24/17 08:00 02/24/17 08:00 02/24/17 08:00 02/24/17 08:00 02/24/17 08:00 Intake and Output: 02/24/17 02/24/17 06:59 18:59 Intake Total 850 Balance 850 - Medications Medications: Current Medications Amiodarone HCl (Cordarone) 100 mg PO DAILY [facility] Last Admin: 02/23/17 09:29 Dose: 100 mg Amlodipine Besylate (Norvasc) 5 mg PO DAILY [facility] Last Admin: 02/23/17 09:29 Dose: 5 mg Aspirin (Ecotrin) 81 mg PO DAILY [facility] Last Admin: 02/23/17 09:28 Dose: 81 mg Ibuprofen (Motrin Tab) 600 mg PO Q6 PRN PRN Reason: Pain, moderate (4-7) Last Admin: 02/23/17 19:55 Dose: 600 mg Lactic Acid (Lac-Hydrin 12% Lotion (225 G)) 1 applic TOP TID [facility] Losartan Potassium (Cozaar) 50 mg PO DAILY [facility] Last Admin: 02/23/17 09:30 Dose: 50 mg Sevelamer HCl (Renagel) 2,400 mg PO TID [facility] Last Admin: 02/23/17 17:05 Dose: 2,400 mg Vitamin B Complex/Vit C/Folic Acid (Nephro-Jacqueline) 1 tab PO DAILY [facility] Last Admin: 02/23/17 09:28 Dose: 1 tab - Labs Labs: 02/22/17 05:00 02/23/17 07:40 PT 13.8 Seconds (9.8-13.1) H 02/21/17 17:14 INR 1.2 (0.9-1.2) 02/21/17 17:14 APTT 39.2 Seconds (25.6-37.1) H 02/21/17 17:14 - Constitutional Appears: Well, Non-toxic, No Acute Distress - Extremities Exam Additional comments: VASC: DP and PT pulses non-palpable b/l secondary to edema, CFT < 5 seconds to all digits b/l. Skin temperature is warm to warm from proximal to distal, Pitting edema noted on the distal lower extremity b/l DERM: Nails 1-5 b/l are elongated thickness and length. Skin is diffusely xerotic b/l. There are no open lesions on the right LE. No interdigital maceration noted b/l. On left anterior borjas, there is a large intact bullae, and a superfical ulceration where a previous bullae had opened which is draining serous fluid. On the leg by the tibial tuberosity is a superficial ulceration with a thick scab. No malodor, no erythema, no clinical suspicion of infection noted NEURO: Protective sensation is grossly intact ORTHO: No pain on palpation to LE b/l, no pain on squeezing the calf b/l - Neurological Exam Neurological Exam: Alert, Awake, Oriented x3 - Psychiatric Exam Psychiatric exam: Normal Affect, Normal Mood Assessment and Plan - Assessment and Plan (Free Text) Assessment: 66 year old male with diffuse xerosis of the LE and bullae to the LLE Plan: Pt evaluated and chart reviewed Pt discussed in detail with attending, Dr. Woodson Labs and vitals reviewed: afebrile Lac hydrin applied to b/l lower extremity Bullae site was cleaned using alcohol pads and it was drained aseptically - clear serous fluid was extracted Cultures taken - pending results podiatry will continue to follow patient while in house
[2017-02-24] MEDS: Multivitamin Vitamin B Complex (Nephro-Vite) Tab PO SCH (09:02)
--- NOTE | 2017-02-24 10:26 | CP.PCM.PN ---
Subjective - Date & Time of Evaluation Date of Evaluation: 02/23/17 Time of Evaluation: 11:00 - Subjective Subjective: Patient was seen and examined at the bedside on 02/23 He appeared awake and talkative He is feeling very good no syncope no shortness of breath no difficulty breathing Patient given a long story about his social life many years ago Regretting why he did not listen to me in the past. Physical exam Chest no rales Heart no rubs Abdomen soft Extremity no edema Nails are long Impression and plan End stage renal disease admitted with syncope he is being evaluated by neurology and I suggest cardiology as well because of the pacemaker Patient scheduled for dialysis TTS Objective - Vital Signs/Intake and Output Vital Signs (last 24 hours): Temp Pulse Resp BP Pulse Ox 96.3 F L 63 18 158/74 H 95 02/24/17 08:00 02/24/17 09:06 02/24/17 08:00 02/24/17 09:06 02/24/17 08:00 Intake and Output: 02/24/17 02/24/17 06:59 18:59 Intake Total 850 Balance 850 - Medications Medications: Current Medications Amiodarone HCl (Cordarone) 100 mg PO DAILY [facility] Last Admin: 02/24/17 09:06 Dose: 100 mg Amlodipine Besylate (Norvasc) 5 mg PO DAILY [facility] Last Admin: 02/24/17 09:03 Dose: Not Given Aspirin (Ecotrin) 81 mg PO DAILY [facility] Last Admin: 02/24/17 09:02 Dose: 81 mg Ibuprofen (Motrin Tab) 600 mg PO Q6 PRN PRN Reason: Pain, moderate (4-7) Last Admin: 02/23/17 19:55 Dose: 600 mg Lactic Acid (Lac-Hydrin 12% Lotion (225 G)) 1 applic TOP TID [facility] Last Admin: 02/24/17 09:03 Dose: 1 applic Losartan Potassium (Cozaar) 50 mg PO DAILY [facility] Last Admin: 02/24/17 09:02 Dose: Not Given Sevelamer HCl (Renagel) 2,400 mg PO TID [facility] Last Admin: 02/24/17 09:02 Dose: 2,400 mg Vitamin B Complex/Vit C/Folic Acid (Nephro-Jacqueline) 1 tab PO DAILY [facility] Last Admin: 02/24/17 09:02 Dose: 1 tab - Labs Labs: 02/22/17 05:00 02/23/17 07:40 PT 13.8 Seconds (9.8-13.1) H 02/21/17 17:14 INR 1.2 (0.9-1.2) 02/21/17 17:14 APTT 39.2 Seconds (25.6-37.1) H 02/21/17 17:14 - Constitutional Appears: No Acute Distress - Respiratory Exam Respiratory Exam: NORMAL BREATHING PATTERN - GI/Abdominal Exam GI & Abdominal Exam: Soft, Normal Bowel Sounds - Extremities Exam Extremities Exam: absent: Calf Tenderness - Back Exam Back Exam: absent: CVA tenderness (L), CVA tenderness (R) - Neurological Exam Neurological Exam: Alert Assessment and Plan (1) Syncope Status: Acute
--- NOTE | 2017-02-24 10:30 | CP.PCM.PN ---
Subjective - Date & Time of Evaluation Date of Evaluation: 02/24/17 Time of Evaluation: 10:28 - Subjective Subjective: He was seen on hemodialysis now Ultrafiltration 1500 mL Potassium bath 2 mEq I carbonate bath 34 Patient tolerating very well hemodialysis with sodium bath 138 Physical exam Vital signs stable Chest no rales Heart no rubs Abdomen soft Extremity no edema Impression and plan End stage renal disease Continue hemodialysis TTS He was seen by neurologist I suggest need to clearance by refractive surgeon as well Patient appears to be stable Objective - Vital Signs/Intake and Output Vital Signs (last 24 hours): Temp Pulse Resp BP Pulse Ox 96.3 F L 63 18 158/74 H 95 02/24/17 08:00 02/24/17 09:06 02/24/17 08:00 02/24/17 09:06 02/24/17 08:00 Intake and Output: 02/24/17 02/24/17 06:59 18:59 Intake Total 850 Balance 850 - Medications Medications: Current Medications Amiodarone HCl (Cordarone) 100 mg PO DAILY [facility] Last Admin: 02/24/17 09:06 Dose: 100 mg Amlodipine Besylate (Norvasc) 5 mg PO DAILY [facility] Last Admin: 02/24/17 09:03 Dose: Not Given Aspirin (Ecotrin) 81 mg PO DAILY [facility] Last Admin: 02/24/17 09:02 Dose: 81 mg Ibuprofen (Motrin Tab) 600 mg PO Q6 PRN PRN Reason: Pain, moderate (4-7) Last Admin: 02/23/17 19:55 Dose: 600 mg Lactic Acid (Lac-Hydrin 12% Lotion (225 G)) 1 applic TOP TID [facility] Last Admin: 02/24/17 09:03 Dose: 1 applic Losartan Potassium (Cozaar) 50 mg PO DAILY [facility] Last Admin: 02/24/17 09:02 Dose: Not Given Sevelamer HCl (Renagel) 2,400 mg PO TID [facility] Last Admin: 02/24/17 09:02 Dose: 2,400 mg Vitamin B Complex/Vit C/Folic Acid (Nephro-Jacqueline) 1 tab PO DAILY [facility] Last Admin: 02/24/17 09:02 Dose: 1 tab - Labs Labs: 02/22/17 05:00 02/23/17 07:40 PT 13.8 Seconds (9.8-13.1) H 02/21/17 17:14 INR 1.2 (0.9-1.2) 02/21/17 17:14 APTT 39.2 Seconds (25.6-37.1) H 02/21/17 17:14 - Constitutional Appears: No Acute Distress - ENT Exam ENT Exam: Mucous Membranes Moist - Respiratory Exam Respiratory Exam: NORMAL BREATHING PATTERN - GI/Abdominal Exam GI & Abdominal Exam: Soft, Normal Bowel Sounds - Extremities Exam Extremities Exam: absent: Calf Tenderness - Back Exam Back Exam: absent: CVA tenderness (L), CVA tenderness (R) - Neurological Exam Neurological Exam: Alert Assessment and Plan (1) Syncope Status: Acute
--- NOTE | 2017-02-24 12:29 | PQF GENQUE ---
Dr. Patterson, (1) Etiology of the 3(three) ulcers as follows: if in agreement -on the buttock - the left anterior borjas - on the leg by the tibial tuberosity (2) POA? OR: Disagree OR; Other explanation of clinical findings 02/21: Wound RN consult :rt buttock healing wound: open/intact/healing blisters on BLE. R buttock 02/22/17: communication signals intelligence: Right buttock: partial thickness of dermis presenting as a shallow open ulcer Podiatry: left anterior borjas, there is a large intact bullae, and a superfical ulceration where a previous bullae had opened which is draining serous fluid. On the leg by the tibial tuberosity is a superficial ulceration with a thick scab Impression: diffuse xerosis of the LE and bullae to the LLE This form is a permanent part of the medical record Clarification of your documentation is requested to better reflect the severity of illness and intensity of treatment of your patient. Indicators present [] Specify: [] [] Specify: [] [] Specify: [] [] Specify: [] Location in the medical record that reflects the above clinical findings: [] Treatment Provided: [] PHYSICIAN'S RESPONSE Based on your medical judgment of the clinical indicators outlined above please clarify the following: [] Practitioner response [] If unable to determine, please check the box, sign and date. Present On Admission (POA) Indicator: [] Present at the time of admission [] Not present at the time of admission [] Clinically Undetermined In responding to this query, please exercise your independent professional judgment. The fact that a question is asked does not imply that any particular answer is desired or expected. Thank you for your clarification on this documentation. If you have any questions please call. * Thank you, Shante Henson RN BSN ext. #[phone] MTDD
--- NOTE | 2017-02-24 12:33 | PQF GENQUE ---
Dr. Patterson, Etiology of the Syncope? if known after the work up is completed OR: Unknown OR; Unable to determine Neuro note: SYNCOPAL EPISODES SEEMS MORE A VASOVAGAL COMPONENT, NOT SEIZURE LIKE. This form is a permanent part of the medical record Clarification of your documentation is requested to better reflect the severity of illness and intensity of treatment of your patient. Indicators present [] Specify: [] [] Specify: [] [] Specify: [] [] Specify: [] Location in the medical record that reflects the above clinical findings: [] Treatment Provided: [] PHYSICIAN'S RESPONSE Based on your medical judgment of the clinical indicators outlined above please clarify the following: [] Practitioner response [] If unable to determine, please check the box, sign and date. Present On Admission (POA) Indicator: [] Present at the time of admission [] Not present at the time of admission [] Clinically Undetermined In responding to this query, please exercise your independent professional judgment. The fact that a question is asked does not imply that any particular answer is desired or expected. Thank you for your clarification on this documentation. If you have any questions please call. * Thank you Shante Henson RN BSN ext. #[phone] MTDD
--- NOTE | 2017-02-24 12:55 | RAD ---
HISTORY: ESRD COMPARISON: No prior. FINDINGS: There is an endovascular subclavian stent. LUNGS: There is mild pulmonary venous congestion. No focal consolidation. PLEURA: No significant pleural effusion identified, no pneumothorax apparent. CARDIOVASCULAR: There is mild cardiomegaly. Atherosclerotic aortic arch calcifications are present. OSSEOUS STRUCTURES: No significant abnormalities. VISUALIZED UPPER ABDOMEN: Normal. OTHER FINDINGS: None. IMPRESSION: No acute findings.
[2017-02-24 16:12] VITALS: BP 139/86; PULSE 94; RESP 18; TEMP 97.5; O2SAT 99
== END 2017-02-24 16:35 | DRG 312 ==
LOC: H.ER 15:35 → H.ERHOLD 18:14 → H.TEL 21:36
PROVIDERS: ADMIT Family Medicine; ATTEND Family Medicine
PROC: 5A1D00Z (ICD-10-PCS; principal; 2017-02-22)
DX: R55 Syncope and collapse (principal); I13.2 Hypertensive heart and chronic kidney disease with heart failure and with stage 5 chronic kidney disease, or end stage renal disease; N18.6 End stage renal disease; I42.9 Cardiomyopathy, unspecified; I65.23 Occlusion and stenosis of bilateral carotid arteries; E78.5 Hyperlipidemia, unspecified; L85.9 Epidermal thickening, unspecified; Z95.0 Presence of cardiac pacemaker; I50.9 Heart failure, unspecified; Z99.2 Dependence on renal dialysis; L85.3 Xerosis cutis; R23.8 Other skin changes

== ENCOUNTER 2017-04-08 14:38 | Inpatient (IN) | payer MEDICARE, MEDICAID ==
[2017-04-08 14:39] VITALS: BMI 30.5
--- NOTE | 2017-04-08 15:45 | ED PDOC ---
HPI: General Adult Time Seen by Provider: 04/08/17 14:46 Chief Complaint (Nursing): Cough, Cold, Congestion Chief Complaint (Provider): Cough, Cold, Congestion History Per: Patient History/Exam Limitations: no limitations Onset/Duration Of Symptoms: Days (x11) Current Symptoms Are (Timing): Still Present Additional Complaint(s): 66 y/o male with a past medical history of atrial fibrillation, congestive heart failure, and kidney problems (requires dialysis every Tuesday, , and Tuesday) who presents to the emergency department with a complaint of congestion, shortness of breath, and cough x11 days. States he completed dialysis on Tuesday but did not go on because he did not feel well. Reports he experienced syncope twice while in rehab and sustained head injuries which had not yet been evaluated and was still experiencing congestion when he was discharged 2 days ago, 04/06/2017. Patient also complaints of a chronic wound to the left lower leg which he had seen a community pharmacist in the past but had not seen one recently. Denies chest pain. Of note, patient was admitted here for missed dialysis and volume overload in the past. Nephrology: Dr. Byers PMD: Dr. Darby VARGAS Past Medical History Reviewed: Historical Data, Nursing Documentation, Vital Signs Vital Signs: Last Vital Signs Temp 97.6 F 04/08/17 20:18 Pulse 90 04/08/17 20:55 Resp 20 04/08/17 20:55 BP 119/71 04/08/17 20:18 Pulse Ox 99 04/08/17 20:18 - Medical History PMH: Anemia, Atrial Fibrillation, Cardia Arrhythmia, CHF, HTN, Peripheral Edema , Pneumonia (2006), End Stage Renal Disease (on dialysis MWF left arm shunt), Chronic Kidney Disease Denies: HIV, Kidney Stones - Surgical History Surgical History: Pacemaker, Tonsillectomy - Family History Family History: States: Unknown Family Hx, CAD, Hypertension - Immunization History Hx Tetanus Toxoid Vaccination: No Hx Influenza Vaccination: Yes Hx Pneumococcal Vaccination: Yes - Home Medications Home Medications: Ambulatory Orders Medication Instructions Recorded Amiodarone HCl 100 mg PO DAILY 02/21/17 Aspirin [Ecotrin] 81 mg PO DAILY 02/21/17 Losartan [Cozaar] 50 mg PO DAILY 02/21/17 Sevelamer Carbonate [Renvela] 2,400 mg PO TID 02/21/17 Vit B Cmplx 3/Folic AC/C/Biot 1 tab PO DAILY 02/21/17 [Amara-Jacqueline Rx Tablet] amLODIPine [Norvasc] 5 mg PO DAILY 02/21/17 - Allergies Allergies/Adverse Reactions: Allergies Allergy/AdvReac Type Severity Reaction Status Date / Time venice inhibitors Allergy Mild ANAPHYLAXIS Uncoded 11/29/16 20:14 Review of Systems ROS Statement: Except As Marked, All Systems Reviewed And Found Negative Constitutional: Positive for: Other (Head injury ) ENT: Positive for: Nose Congestion Cardiovascular: Negative for: Chest Pain Respiratory: Positive for: Cough, Shortness of Breath Musculoskeletal: Positive for: Leg Pain (Left lower leg wound (chronic)) Neurological: Positive for: Other (Syncope) Physical Exam - Reviewed Nursing Documentation Reviewed: Yes Vital Signs Reviewed: Yes - Physical Exam Appears: Positive for: Non-toxic, No Acute Distress (Chronically ill appearing) . Negative for: Well Head Exam: Positive for: ATRAUMATIC, NORMAL INSPECTION, NORMOCEPHALIC Skin: Positive for: Dry Eye Exam: Positive for: Normal appearance, EOMI, PERRL ENT: Positive for: Normal ENT Inspection, Other (Mucous moist membranes) Neck: Positive for: Normal, Supple Cardiovascular/Chest: Positive for: Irregularly Irregular, Other (AV shunt on the left upper arm and pacemaker on the right side of the chest ). Negative for : Murmur Respiratory: Positive for: Normal Breath Sounds. Negative for: Accessory Muscle Use, Respiratory Distress Gastrointestinal/Abdominal: Positive for: Normal Exam, Soft. Negative for: Tenderness, Distended Extremity: Positive for: Normal ROM, Swelling (Mild swelling to both legs), Other (Wound noted on the left lower leg) Neurologic/Psych: Positive for: Alert, Oriented (x3) - Laboratory Results Result Diagrams: 04/08/17 15:55 04/08/17 15:55 Medical Decision Making Medical Decision Making: Time: 15:25 Initial impression: Cough and congestion. Chronic lower leg wound. Syncope with head injury rule out intracranial bleed. Other differential include cardiac arrhythmia, CHF, volume overload, and PNA. Initial plan: --Head CT --EKG --B-Type Natriuretic --Basic Metabolic Panel --Troponin I --CBC w/ diff --Chest x-ray --Blood Culture --Tibia Fibula Left x-ray --Reevaluation --EKG: Atrial fib. Rate of 107 bpm with right bundle branch block, left access LVH and non specific ST Changes. 16:[address] scan reviewed and findings noted: HEMORRHAGE: No acute parenchymal, subarachnoid or extra-axial hemorrhage. BRAIN: No evidence of large acute infarct. There appears in the mild chronic periventricular white matter ischemic changes. Additionally, there are a few tiny chronic lacunar type infarct both basal ganglia. Mild generalized volume loss evidenced by enlargement of the ventricles and sulci Vascular calcifications of the carotid siphons VENTRICLES: No obstructive hydrocephalus. . There is mild asymmetry of the lateral ventricles left-sided which is larger than the right however this is felt to represent an anatomic variation. CALVARIUM: No acute calvarial fractures. PARANASAL SINUSES: Unr near complete opacification of the ethmoid, frontal and sphenoid sinuses. There is mild to moderate mucosal thickening both maxillary antra with questionable small fluid levels. MASTOID AIR CELLS: Partial opacification several left inferior mastoid air cells. OTHER FINDINGS: None. IMPRESSION: No acute intracranial hemorrhage. Mild chronic white matter ischemic changes. Scattered chronic bilateral basal nuclei lacunar type infarcts. Moderate generalized volume loss. Diffuse pansinusitis changes as described. 16:49 Chest X-Ray reviewed and findings noted: LUNGS: Suspect minor bibasilar atelectasis. . PLEURA: No pneumothorax or pleural fluid seen. CARDIOVASCULAR: Single lead right-sided pacemaker with what appears represent residual disconnected left-sided unchanged. . Left subclavian endovascular stent also unchanged. Heart remains enlarged. Aorta is mildly ectatic and uncoiled. OSSEOUS STRUCTURES: No significant abnormalities. VISUALIZED UPPER ABDOMEN: Normal. OTHER FINDINGS: None. IMPRESSION: Mild bibasilar atelectasis. Cardiomegaly. 17:[address] Rayo in regards to plans for dialysis. He agrees to arrange dialysis for tomorrow morning. 17:[address] Hager who approves admission. 1800 Discussed with podiatry resident who will see patient in ED Scribe Attestation: Documented by Veronica Palacios and Sandra Davila, acting as scribes for Mita Warner MD. Provider Scribe Attestation: All medical record entries made by the Scribe were at my direction and personally dictated by me. I have reviewed the chart and agree that the record accurately reflects my personal performance of the history, physical exam, medical decision making, and the department course for this patient. I have also personally directed, reviewed, and agree with the discharge instructions and disposition. Disposition - Clinical Impression Clinical Impression: End-stage renal disease, Syncope - Patient ED Disposition Is Patient to be Admitted: Yes Discussed With : Rio Hager Doctor Will See Patient In The: Hospital Counseled Patient/Family Regarding: Studies Performed, Diagnosis, Need For Followup - Disposition Disposition Time: 17:00 Condition: FAIR
[2017-04-08 16:01] LABS: VENOUS BLOOD GAS BASE EXCESS 4.4 mmol/L (0.0-2.0); VENOUS BLOOD GAS PCO2 66 mmHg (40-60); VENOUS BLOOD PH 7.31 (7.32-7.43)
[2017-04-08 16:01] LABS: BASO % 0.9 % (0.0-2.0); EOS # 0.2 K/uL (0.0-0.7); EOS % 5.4 % (0.0-4.0); HEMATOCRIT 30.4 % (35.0-51.0); LYMPH # 0.4 K/uL (1.0-4.3); LYMPH % 8.7 % (20.0-40.0); MEAN CELL VOLUME 101.7 fl (80.0-94.0); MEAN CORPUSCULAR HEMOGLOBIN 33.1 pg (27.0-31.0); MEAN CORPUSCULAR HGB CONC 32.5 g/dL (33.0-37.0); MEAN PLATELET VOLUME 7.8 fl (7.2-11.7); MONO # 0.5 K/uL (0.0-0.8); MONO % 10.5 % (0.0-10.0); NEUT # 3.3 K/uL (1.8-7.0); NEUT % 74.5 % (50.0-75.0); NRBC % 0.1 % (0.0-0.0); PLATELET COUNT 130 K/uL (130-400); RED CELL DISTRIBUTION WIDTH 17.3 % (11.5-14.5); WHITE BLOOD COUNT 4.4 K/uL (4.8-10.8)
[2017-04-08 16:18] LABS: CALCIUM 9.4 mg/dL (8.4-10.2)
--- NOTE | 2017-04-08 16:28 | CT ---
PROCEDURE: CT HEAD WITHOUT CONTRAST. HISTORY: Head injury. COMPARISON: Comparison made with CT scan brain 02/21/2017 TECHNIQUE: Axial computed tomography images were obtained through the head/brain without intravenous contrast. Radiation dose: Total exam DLP = 864.11 mGy-cm. This CT exam was performed using one or more of the following dose reduction techniques: Automated exposure control, adjustment of the mA and/or kV according to patient size, and/or use of iterative reconstruction technique. FINDINGS: HEMORRHAGE: No acute parenchymal, subarachnoid or extra-axial hemorrhage. BRAIN: No evidence of large acute infarct. There appears in the mild chronic periventricular white matter ischemic changes. Additionally, there are a few tiny chronic lacunar type infarct both basal ganglia. Mild generalized volume loss evidenced by enlargement of the ventricles and sulci Vascular calcifications of the carotid siphons VENTRICLES: No obstructive hydrocephalus. . There is mild asymmetry of the lateral ventricles left-sided which is larger than the right however this is felt to represent an anatomic variation. CALVARIUM: No acute calvarial fractures. PARANASAL SINUSES: Unr near complete opacification of the ethmoid, frontal and sphenoid sinuses. There is mild to moderate mucosal thickening both maxillary antra with questionable small fluid levels. MASTOID AIR CELLS: Partial opacification several left inferior mastoid air cells. OTHER FINDINGS: None. IMPRESSION: No acute intracranial hemorrhage. Mild chronic white matter ischemic changes. Scattered chronic bilateral basal nuclei lacunar type infarcts. Moderate generalized volume loss. Diffuse pansinusitis changes as described.
[2017-04-08 16:29] LABS: TROPONIN I 0.035 ng/mL (0.00-0.120)
[2017-04-08 16:40] LABS: POTASSIUM 4.5 MMOL/L (3.6-5.0)
--- NOTE | 2017-04-08 16:50 | RAD ---
PROCEDURE: CHEST RADIOGRAPH, 1 VIEW HISTORY: congestion dyspnea COMPARISON: None available. FINDINGS: LUNGS: Suspect minor bibasilar atelectasis. . PLEURA: No pneumothorax or pleural fluid seen. CARDIOVASCULAR: Single lead right-sided pacemaker with what appears represent residual disconnected left-sided unchanged. . Left subclavian endovascular stent also unchanged. Heart remains enlarged. Aorta is mildly ectatic and uncoiled. OSSEOUS STRUCTURES: No significant abnormalities. VISUALIZED UPPER ABDOMEN: Normal. OTHER FINDINGS: None. IMPRESSION: Mild bibasilar atelectasis. Cardiomegaly.
[2017-04-08 16:53] LABS: BASOPHIL 1 % (0-2); EOSINOPHIL 5 % (0-7); LARGE PLATELETS PRESENT; NEUTROPHIL 72 % (42-75); TOTAL CELLS COUNTED 100
--- NOTE | 2017-04-08 18:54 | RAD ---
PROCEDURE: Radiographs of the left tibia and fibula. HISTORY: wound left leg COMPARISON: None available. TECHNIQUE: Frontal and lateral views obtained. FINDINGS: BONES: There is diffuse bone demineralization. There is no acute fracture or bone destruction JOINT SPACES: Unremarkable. OTHER FINDINGS: Atherosclerotic vascular calcifications are present. IMPRESSION: No acute fracture or bone destruction.
--- NOTE | 2017-04-08 19:50 | CP.PCM.CON ---
History of Present Illness - History of Present Illness History of Present Illness: 66 year old male with PMHx of HTN, ESRD was seen at bedside in ED regarding b/l LE dry skin and a healed blister on the lateral aspect of the left leg. Patient states that since he has been on dialysis his legs have been very dry and he has been getting bullae.Patient states that he has had this healing blister for few months. Patient states that he has been putting lotion on his legs for the dry skin. Patient states that he has a cloud consultant but he has not seen him in a while. He denies any pain to his LE. Patient denies of any other pedal complains at this time. Denies of any F/N/V/C/SOB. PMHx: ESRD, HTN, Syncope PSHx: Pacemaker, Tonsillectomy Allergies: WOODY Inhibitors Review of Systems - Constitutional Constitutional: As Per HPI Past Patient History - Infectious Disease Hx of Infectious Diseases: None - Past Medical History & Family History Past Medical History?: Yes - Past Social History Smoking Status: Never Smoked - CARDIAC Hx Atrial Fibrillation: Yes Hx Cardia Arrhythmia: Yes Hx Congestive Heart Failure: Yes Hx Hypertension: Yes Hx Pacemaker: Yes Hx Peripheral Edema: Yes - PULMONARY Hx Pneumonia: Yes (2006) - NEUROLOGICAL Hx Neurological Disorder: Yes Hx Syncope: Yes Other/Comment: COMATOSE 1 MONTH 2007 DUE TO RENAL FAILURE - HEENT Hx HEENT Problems: No Other/Comment: L - RENAL Hx Chronic Kidney Disease: Yes - ENDOCRINE/METABOLIC Hx Endocrine Disorders: No - HEMATOLOGICAL/ONCOLOGICAL Hx Anemia: Yes Hx Human Immunodeficiency Virus (HIV): No - INTEGUMENTARY Hx Dermatological Problems: Yes Other/Comment: CHRONIC PRIRITUS - GASTROINTESTINAL Hx Gastrointestinal Disorders: Yes Other/Comment: ABD HERNIA HISTORY FEEDING TUBE INSERTION AND REMOVAL - GENITOURINARY/GYNECOLOGICAL Hx Genitourinary Disorders: No - PSYCHIATRIC Hx Psychophysiologic Disorder: No Hx Substance Use: No - SURGICAL HISTORY Hx Tonsillectomy: Yes - ANESTHESIA Hx Anesthesia: Yes Hx Anesthesia Reactions: No Hx Malignant Hyperthermia: No Meds Allergies/Adverse Reactions: Allergies Allergy/AdvReac Type Severity Reaction Status Date / Time woody inhibitors Allergy Mild ANAPHYLAXIS Uncoded 11/29/16 20:14 Physical Exam - Constitutional Appears: Well, Non-toxic, No Acute Distress - Extremities Exam Additional comments: VASC: DP and PT pulses non-palpable b/l secondary to edema, CFT < 5 seconds to all digits b/l. Skin temperature is cool to cool from proximal to distal, Pitting edema noted on the distal lower extremity b/l DERM: Skin is diffusely xerotic b/l. There are no open lesions on the right LE. No interdigital maceration noted b/l. On left lateral anterior borjas, healing bullae with a superfical shedding of skin noted. no open lesions, No malodor, no erythema, no clinical suspicion of active infection noted NEURO: Protective sensation is grossly intact ORTHO: No pain on palpation to bullae site, no pain on squeezing the calf b/l - Neurological Exam Neurological exam: Alert, Oriented x3 - Psychiatric Exam Psychiatric exam: Normal Affect, Normal Mood Results - Vital Signs Recent Vital Signs: Last Vital Signs Temp 98 F 04/08/17 19:09 Pulse 89 04/08/17 19:09 Resp 20 04/08/17 19:09 BP 123/77 04/08/17 19:09 Pulse Ox 97 04/08/17 19:09 - Labs Result Diagrams: 04/08/17 15:55 04/08/17 15:55 Assessment & Plan - Assessment and Plan (Free Text) Assessment: 66 year old male with diffuse xerosis of the LE and healing bullae to the LLE Plan: Pt evaluated and chart reviewed Pt discussed in detail with attending, Dr. Benavidez Labs and vitals reviewed: afebrile WBC @ 4.4 Rx: Lac hydrin X-rays taken and evaluated: no emphysema, no gross leonardo changes noted Dressing applied using xeroform, DSD Bullae appears stable from podiatry standpoint Nursing orders placed to change dressing daily Thank you for the podiatry consult, please re-consult if needed - Date & Time Date: 04/08/17 Time: 06:40
[2017-04-09] MEDS: Ammonium Lactate 12% Cream (140 g) TOP SCH ×5 (00:13→21:52)
[2017-04-09 07:50] LABS: HEMATOCRIT 28.1 % (35.0-51.0); MEAN CELL VOLUME 99.9 fl (80.0-94.0); MEAN CORPUSCULAR HEMOGLOBIN 32.4 pg (27.0-31.0); MEAN CORPUSCULAR HGB CONC 32.4 g/dL (33.0-37.0); RED CELL DISTRIBUTION WIDTH 16.9 % (11.5-14.5)
[2017-04-09 08:55] LABS: ALB/GLOB RATIO 0.9 (1.0-2.1); POTASSIUM 4.2 MMOL/L (3.6-5.0); TOTAL PROTEIN 7.6 G/DL (6.3-8.2)
[2017-04-09 09:12] LABS: T4 5.78 ug/dl (5.5-11.0)
[2017-04-09 09:26] LABS: THYROID STIMULATING HORMONE 2.45 mIU/ML (0.46-4.68)
[2017-04-09] MEDS: Multivitamin Vitamin B Complex (Nephro-Vite) Tab PO SCH (09:40)
--- NOTE | 2017-04-09 11:28 | CP.PCM.CON ---
History of Present Illness - History of Present Illness History of Present Illness: Consult for ESRD 66 year old male with PMHx of ESRD - MWF, HTN, that presented w/ weakness , blistering on L leg, sob, dry cough. He denies any fevers or chills. Denies any n/v. He was recently hospitalized and discharged to a NH and than subsequently to home. He missed HD yesterday ROS: a ull detailed ROS is negative except as in my hpi PMHx: ESRD, HTN, Syncope PSHx: Pacemaker, Tonsillectomy Allergies: WOODY Inhibitors famhx: no esrd sochx: denies active smoke/etoh/ivdu Past Patient History - Infectious Disease Hx of Infectious Diseases: None - Past Medical History & Family History Past Medical History?: Yes - Past Social History Smoking Status: Never Smoked - CARDIAC Hx Atrial Fibrillation: Yes Hx Cardia Arrhythmia: Yes Hx Congestive Heart Failure: Yes Hx Hypertension: Yes Hx Pacemaker: Yes Hx Peripheral Edema: Yes - PULMONARY Hx Pneumonia: Yes (2006) - NEUROLOGICAL Hx Neurological Disorder: Yes Hx Syncope: Yes Other/Comment: COMATOSE 1 MONTH 2008 DUE TO RENAL FAILURE - HEENT Hx HEENT Problems: No Other/Comment: L - RENAL Hx Chronic Kidney Disease: Yes Hx Kidney Stones: No - ENDOCRINE/METABOLIC Hx Endocrine Disorders: No - HEMATOLOGICAL/ONCOLOGICAL Hx Anemia: Yes Hx Human Immunodeficiency Virus (HIV): No - INTEGUMENTARY Hx Dermatological Problems: Yes Other/Comment: CHRONIC PRIRITUS - GASTROINTESTINAL Hx Gastrointestinal Disorders: Yes Other/Comment: ABD HERNIA HISTORY FEEDING TUBE INSERTION AND REMOVAL - GENITOURINARY/GYNECOLOGICAL Hx Genitourinary Disorders: No - PSYCHIATRIC Hx Psychophysiologic Disorder: No Hx Substance Use: No - SURGICAL HISTORY Hx Tonsillectomy: Yes - ANESTHESIA Hx Anesthesia: Yes Hx Anesthesia Reactions: No Hx Malignant Hyperthermia: No Meds Allergies/Adverse Reactions: Allergies Allergy/AdvReac Type Severity Reaction Status Date / Time woody inhibitors Allergy Mild ANAPHYLAXIS Uncoded 11/29/16 20:14 - Medications Medications: Current Medications Amiodarone HCl (Cordarone) 100 mg PO DAILY [facility] Last Admin: 04/09/17 09:40 Dose: 100 mg Amlodipine Besylate (Norvasc) 5 mg PO DAILY [facility] Last Admin: 04/09/17 09:40 Dose: Not Given Aspirin (Ecotrin) 81 mg PO DAILY [facility] Last Admin: 04/09/17 09:40 Dose: 81 mg Heparin Sodium (Porcine) (Heparin) 5,000 units SC Q12 [facility] PRN Reason: Protocol Last Admin: 04/09/17 09:40 Dose: 5,000 units Home Med (Sevelamer Carbonate [Renvela]) 2,400 mg PO TID [facility] Lactic Acid (Lac-Hydrin 12% Cream (140 G)) 1 ea TOP QID [facility] Last Admin: 04/09/17 09:40 Dose: 140 g Losartan Potassium (Cozaar) 50 mg PO DAILY [facility] Last Admin: 04/09/17 09:40 Dose: 50 mg Vitamin B Complex/Vit C/Folic Acid (Nephro-Jacqueline) 1 tab PO DAILY [facility] Last Admin: 04/09/17 09:40 Dose: 1 tab Physical Exam - Head Exam Head Exam: ATRAUMATIC - Eye Exam Eye Exam: Normal appearance - ENT Exam ENT Exam: Mucous Membranes Moist - Neck Exam Neck exam: Positive for: Normal Inspection - Respiratory Exam Respiratory Exam: NORMAL BREATHING PATTERN - Cardiovascular Exam Cardiovascular Exam: +S1, +S2 - GI/Abdominal Exam GI & Abdominal Exam: Normal Bowel Sounds - Extremities Exam Additional comments: trace edema - Neurological Exam Neurological exam: Alert, Oriented x3 - Psychiatric Exam Psychiatric exam: Normal Affect - Skin Additional comments: dressing on LLE Results - Vital Signs Recent Vital Signs: Last Vital Signs Temp 97.6 F 04/09/17 08:09 Pulse 55 L 04/09/17 09:40 Resp 18 04/09/17 08:09 BP 145/71 04/09/17 09:40 Pulse Ox 95 04/09/17 08:09 - Labs Result Diagrams: 04/09/17 06:00 04/09/17 06:00 Labs: Laboratory Results - last 24 hr 04/09/17 04/09/17 06:00 06:00 WBC 4.0 L RBC 2.81 L Hgb 9.1 L Hct 28.1 L MCV 99.9 H MCH 32.4 H MCHC 32.4 L RDW 16.9 H Plt Count 139 Sodium 137 Potassium 4.2 Chloride 98 Carbon Dioxide 28 Anion Gap 15 BUN 64 H Creatinine 11.9 H* Est GFR ( Amer) 5 Est GFR (Non-Af Amer) 4 Random Glucose 81 Calcium 9.0 Total Bilirubin 1.0 AST 44 ALT 20 L Alkaline Phosphatase 118 Total Protein 7.6 Albumin 3.5 Globulin 4.1 H Albumin/Globulin Ratio 0.9 L Triglycerides 75 Cholesterol 119 LDL Cholesterol Direct 36 HDL Cholesterol 34 Thyroxine (T4) 5.78 TSH 3rd Generation 2.45 Assessment & Plan - Assessment and Plan (Free Text) Assessment: ESRD / HTN/ Secondary hyperparathyroid/ ANemia/ Hyperphosphatemia HD today BP acceptable check phos level will see if need binder will start epo
--- NOTE | 2017-04-09 16:52 | CP.PCM.HP ---
History of Present Illness - History of Present Illness History of Present Illness: CC: Chest congestion. 66 y/o M, brought to ER [facility] on 04/08/17 due to Chest congestion, onset 10 days [facility] with no relief. As per Pt, Chest congestion associated to cough, initially with greenish sputum , moderate SOB, nasal congestion, weakness, tiredness. Worsening symptoms: Severe anemia, Pt with Hx of ESRD on HD --. Hx of Pulmonary Nodule. Also c/o of Cervical pain, L-S pain radiated to R leg. Aggravated factor: Pt missed her last chemo on DOA, but HD today. Pt denied: Fever, chills, n/v/d, abdominal pain, CP, palpitations, LOC, syncope , urinary symptoms, sick contact, recent travel. PMHx: ESRD x 9 yrs, 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 Pacemaker 2008, L AVF. Hx of former cigar smoker x 30 yrs, quit in 1999. Hx PNA 2006. Hx Abdominal Hernia and feeding tube insertion and removal. Hx of been Comatose for a month in 2007 2nd to Renal failure , Hx of head injury, chronic Cervical pain 2nd to old injury, chronic Lumbago with R radiculopathy CXR shows: Mild bibasilar atelectasis, Cardiomegaly. Tibia Fistula X-Ray: Negative for Fx or bone destruction. CT Head shows: No large acute infarct, no hemorrhage, scattered chronic bilateral basal nuclei lacunar type infarcts, moderate generalized volume loss. Diffused Pansinusitis changes. Present on Admission - Present on Admission Any Indicators Present on Admission: No Review of Systems - Constitutional Constitutional: Weakness - EENT Eyes: Other (negative) Ears: Other (negative) Nose/Mouth/Throat: Nasal Congestion - Cardiovascular Cardiovascular: Dyspnea, Slow Heart Rate - Respiratory Respiratory: Cough, Dyspnea, Chest Congestion - Gastrointestinal Gastrointestinal: Other (negative) - Genitourinary Genitourinary: Other (negative) - Musculoskeletal Musculoskeletal: Back Pain, Muscle Weakness, Neck Pain, Radiating Pain into Limb , Other (negative) - Integumentary Integumentary: Dry Skin, Pruritus - Neurological Neurological: Other (negative) - Psychiatric Psychiatric: Other (negative) - Endocrine Endocrine: Other (negative) - Hematologic/Lymphatic Hematologic: Other (chronic anemia) Past Patient History - Infectious Disease Hx of Infectious Diseases: None - Past Medical History & Family History Past Medical History?: Yes Pertinent Family History: Mother HTN, Depression. - Past Social History Smoking Status: Former Smoker Alcohol: None Drugs: Denies Home Situation {Lives}: Alone - CARDIAC Hx Cardiac Disorders: Yes Hx Atrial Fibrillation: Yes Hx Cardia Arrhythmia: Yes Hx Congestive Heart Failure: Yes Hx Hypertension: Yes Hx Pacemaker: Yes Hx Peripheral Edema: Yes - PULMONARY Hx Respiratory Disorders: Yes Hx Pneumonia: Yes (2006) Other/Comment: Pulmonary Nodule. - NEUROLOGICAL Hx Neurological Disorder: Yes Hx Syncope: Yes Other/Comment: COMATOSE 1 MONTH 2007 DUE TO RENAL FAILURE - HEENT Hx HEENT Problems: No Other/Comment: L - RENAL Hx Chronic Kidney Disease: Yes Hx Kidney Stones: No - ENDOCRINE/METABOLIC Hx Endocrine Disorders: No - HEMATOLOGICAL/ONCOLOGICAL Hx Blood Disorders: Yes Hx Anemia: Yes Hx Human Immunodeficiency Virus (HIV): No - INTEGUMENTARY Hx Dermatological Problems: Yes Other/Comment: CHRONIC PRURITUS - MUSCULOSKELETAL/RHEUMATOLOGICAL Hx Back Pain: Yes Hx Herniated Disk: Yes Hx Spinal Stenosis: Yes Hx Unsteady Gait: Yes - GASTROINTESTINAL Hx Gastrointestinal Disorders: Yes Other/Comment: ABD HERNIA HISTORY FEEDING TUBE INSERTION AND REMOVAL - GENITOURINARY/GYNECOLOGICAL Hx Genitourinary Disorders: No - PSYCHIATRIC Hx Psychophysiologic Disorder: No Hx Substance Use: No - SURGICAL HISTORY Hx Surgeries: Yes Hx Arteriovenous Shunt: Yes Hx Tonsillectomy: Yes - ANESTHESIA Hx Anesthesia: Yes Hx Anesthesia Reactions: No Hx Malignant Hyperthermia: No Meds Home Medications: Home Medication List Medication Instructions Recorded Confirmed Type Albuterol/Ipratropium [Duoneb 3 3 ml INH RQ6 PRN 04/15/17 Rx mg/0.5 mg (3 ml) UD] Ammonium Lactate 12% [Lac-Hydrin 1 ea TOP QID 04/15/17 Rx 12% Cream (140 g)] Epoetin Giovanny [Procrit] 4,000 unit SC TTS ml 04/15/17 Rx Heparin 5,000 units SC Q12 vial 04/15/17 Rx Piperacill/Tazo 2.25gm in Dex 2.25 gm IVPB Q8 #6 bag 04/15/17 Rx [Zosyn 2.25 Gm IV Premix] Promethazine/Codeine 5 ml PO Q6 PRN 04/15/17 Rx [Phenergan/Codeine Oral Syrup] Vancomycin 500mg in NS 500 mg IVPB TTS #2 bag 04/15/17 Rx traMADol [Ultram] 50 mg PO Q6 PRN #10 tab 04/15/17 Rx Allergies/Adverse Reactions: Allergies Allergy/AdvReac Type Severity Reaction Status Date / Time venice inhibitors Allergy Mild ANAPHYLAXIS Uncoded 04/16/17 17:22 Physical Exam - Constitutional Appears: No Acute Distress, Chronically Ill - Head Exam Head Exam: NORMAL INSPECTION - Eye Exam Eye Exam: PERRL - ENT Exam ENT Exam: Normal Exam - Neck Exam Neck exam: Positive for: Tenderness - Respiratory Exam Respiratory Exam: Decreased Breath Sounds (b/l) - Cardiovascular Exam Cardiovascular Exam: REGULAR RHYTHM - GI/Abdominal Exam GI & Abdominal Exam: Normal Bowel Sounds, Soft - Extremities Exam Additional comments: Trace edema lower extremities, blister L leg with dressing. - Back Exam Back exam: tenderness (L-S) - Neurological Exam Neurological exam: Alert, Oriented x3 - Psychiatric Exam Psychiatric exam: Normal Mood - Skin Skin Exam: Dry (skin lower extremities, healing bullae LLE.), Warm Results - Vital Signs Recent Vital Signs: Last Vital Signs Temp 97.4 F L 04/09/17 16:47 Pulse 58 L 04/09/17 16:47 Resp 16 04/09/17 16:47 BP 123/61 04/09/17 16:47 Pulse Ox 92 L 04/09/17 16:47 reviewed Alexandra - Labs Result Diagrams: 04/14/17 12:27 04/14/17 12:27 Labs: Laboratory Results - last 24 hr 04/09/17 04/09/17 04/09/17 06:00 06:00 13:00 WBC 4.0 L RBC 2.81 L Hgb 9.1 L Hct 28.1 L MCV 99.9 H MCH 32.4 H MCHC 32.4 L RDW 16.9 H Plt Count 139 Sodium 137 Potassium 4.2 Chloride 98 Carbon Dioxide 28 Anion Gap 15 BUN 64 H Creatinine 11.9 H* Est GFR ( Amer) 5 Est GFR (Non-Af Amer) 4 Random Glucose 81 Calcium 9.0 Phosphorus 5.6 H Total Bilirubin 1.0 AST 44 ALT 20 L Alkaline Phosphatase 118 Total Protein 7.6 Albumin 3.5 Globulin 4.1 H Albumin/Globulin Ratio 0.9 L Triglycerides 75 Cholesterol 119 LDL Cholesterol Direct 36 HDL Cholesterol 34 Thyroxine (T4) 5.78 TSH 3rd Generation 2.45 reviewed [facility] Chest x-ray Status: Report reviewed by me (VitorP.) CT scan - head Status: Report reviewed by me (VitorPLakhwinder) Assessment & Plan (1) Anemia due to chronic kidney disease Status: Chronic Priority: High (2) Pulmonary nodule, right Status: Chronic Priority: High (3) ESRD needing dialysis Status: Chronic Priority: High (4) CHF (congestive heart failure) Status: Chronic Priority: High (5) Hypertension Status: Chronic Priority: Medium (6) Xerosis of skin Status: Chronic Priority: High Comment: Lower extremities. (7) Lumbago with sciatica, right side Status: Chronic (8) Cervical pain Status: Chronic - Assessment and Plan (Free Text) Plan: F/U Echo and CT Chest. Continue NC 2 L/M, continue Duoneb, Phenergan with Co, Amiodarone, Cozaar and rest of Tx, Nephrology consult appreciated, Cardiology consult. - Date & Time Date: 04/09/17 Time: 14:30
[2017-04-09] MEDS: Promethazine/Cod 6.25mg-10mg/5ml Syr UD PO PRN (17:01)
[2017-04-09] MEDS: Albuterol-Ipratrop 3 mg / 0.5 (3 ml) UD INH PRN ×2 (17:24→23:30)
--- NOTE | 2017-04-09 22:57 | CON ---
REASON FOR CONSULTATION: Atrial fibrillation. HISTORY OF PRESENT ILLNESS: The patient is a 66-year-old male who has a history of chronic atrial fibrillation; congestive heart failure; and end-stage renal disease, on hemodialysis Tuesday, , and Tuesday. The patient has been on dialysis for almost 10 years and the patient is followed by a support associate, his name is Lakhwinder Carlos in [place], and had a pacemaker with followup pulse generator replacement. The patient was admitted to [facility] after he sustained a fall and was evaluated by his PMD. He was transferred to the emergency room. The patient did miss his dialysis on because he did not feel well and was admitted because of volume overload and was found to be in rapid atrial fibrillation. The patient also has chronic left leg ulcer. SOCIAL HISTORY: Nonsmoker and nondrinker. MEDICATIONS: Amiodarone 100 mg once a day, Cozaar 50 mg once a day, aspirin 81 mg once a day, subcutaneous heparin 5000 units twice a day, and Norvasc 5 mg once a day. REVIEW OF SYSTEMS: No nausea or vomiting. No fever or chills. The patient had 2 syncopal episodes recently. PHYSICAL EXAMINATION: GENERAL: The patient is an elderly male who does not appear to be in any distress. VITAL SIGNS: Blood pressure 143/77, heart rate 62, temperature 97.7, respirations 18. Earlier, heart rate today was in the 50s and on admission, heart rate was 134. HEENT: Normocephalic. CHEST: Diminished breath sounds over the bases. HEART: S1 and S2 regular. ABDOMEN: Soft. EXTREMITIES: 1+ pitting edema. Dressings applied to the left lower leg. LABORATORY DATA: Hemoglobin and hematocrit 9.1 and 28.1, white count and platelet count of 4.0 and 139. SMA-7 is within normal limits except for BUN and creatinine of 64 and 11.9 respectively. ProBNP is 40,900. Lipid profile is within normal limits. One set of troponin is 0.035. EKG revealed rapid atrial fibrillation at a rate of 107 with left bundle-branch block. Chest x-ray revealed cardiomegaly with mild CHF and dual-chamber pacemaker placement. ASSESSMENT: 1. Status post volume overload. 2. Rapid atrial fibrillation which is currently under control. 3. Congestive heart failure. 4. End-stage renal disease, on hemodialysis. 5. Anemia. RECOMMENDATIONS: Continue current Cozaar 50 mg once a day, amiodarone 100 mg once day, aspirin 81 mg once a day, and Norvasc 5 mg once a day. Start therapeutic anticoagulation regimen if cleared from a medical point of view. I will review echocardiography study that was performed today. Head CT scan done on admission: No acute intracranial hemorrhage, mild chronic white matter ischemic changes, scattered chronic bilateral basal nuclei lacunar-type infarcts, and moderate generalized volume loss. X-ray of the tibia and fibula revealed no acute fracture. Malik Aguirre MD
[2017-04-10] MEDS: Albuterol-Ipratrop 3 mg / 0.5 (3 ml) UD INH PRN ×2 (08:58→20:17)
[2017-04-10] MEDS: Ammonium Lactate 12% Cream (140 g) TOP SCH ×4 (09:13→21:32)
[2017-04-10] MEDS: Promethazine/Cod 6.25mg-10mg/5ml Syr UD PO PRN ×2 (11:21→21:33)
[2017-04-10] MEDS: Multivitamin Vitamin B Complex (Nephro-Vite) Tab PO SCH (11:21)
--- NOTE | 2017-04-10 13:44 | CT ---
PROCEDURE: CT Chest without contrast HISTORY: Pulmonary nodule COMPARISON: Plain radiograph from 04/08/2017 TECHNIQUE: Contiguous axial images were obtained through the chest without intravenous contrast enhancement. Sagittal and coronal reconstructions were performed. Radiation dose (DLP): 709.04 mGy-cm. This CT exam was performed using one or more of the following dose reduction techniques: Automated exposure control, adjustment of the mA and/or kV according to patient size, and/or use of iterative reconstruction technique. FINDINGS: LUNGS: There is peribronchial thickening in the superior segment of the right lower lobe. There is multifocal linear subsegmental atelectasis in both lower lobes and more confluent airspace disease in the lung bases. There are no endobronchial lesions. There is a 3 mm subpleural nodule in the right lower lobe. MEDIASTINUM: There is moderate cardiomegaly. No pericardial effusion. The aorta is not dilated. There is no pathologic mediastinal adenopathy. There are multiple prominent axillary lymph nodes which may be reactive in etiology. PLEURA: No pleural fluid. No pneumothorax. BONES: No fracture. No destructive lesion. UPPER ABDOMEN: There are nonobstructing stones in the visualized kidneys. Both adrenal glands are normal. There is mild splenomegaly. OTHER FINDINGS: None. IMPRESSION: 1. Question of pneumonia in both lung bases, given location aspiration pneumonitis is a consideration. Multifocal linear atelectasis in both lower lobes. Follow-up to resolution is advised. 2. Moderate cardiomegaly. 3. Nephrolithiasis.
--- NOTE | 2017-04-10 19:28 | CP.PCM.PN ---
Subjective - Date & Time of Evaluation Date of Evaluation: 04/10/17 Time of Evaluation: 12:30 - Subjective Subjective: F/U PNA No A/D, c/o of L-S pain, Pt no c/o of pain in L foot. Objective - Vital Signs/Intake and Output Vital Signs (last 24 hours): Temp Pulse Resp BP Pulse Ox 98.1 F 101 H 16 126/80 95 04/10/17 16:03 04/10/17 16:03 04/10/17 16:03 04/10/17 16:03 04/10/17 16:03 - Medications Medications: Current Medications Albuterol/Ipratropium (Duoneb 3 Mg/0.5 Mg (3 Ml) Ud) 3 ml INH RQ6 PRN PRN Reason: Shortness of Breath Last Admin: 04/10/17 08:58 Dose: 3 ml Amiodarone HCl (Cordarone) 100 mg PO DAILY [facility] Last Admin: 04/10/17 09:10 Dose: 100 mg Amlodipine Besylate (Norvasc) 5 mg PO DAILY [facility] Last Admin: 04/10/17 09:14 Dose: 5 mg Aspirin (Ecotrin) 81 mg PO DAILY [facility] Last Admin: 04/10/17 09:12 Dose: 81 mg Epoetin Giovanny (Procrit) 4,000 unit SC TTS [facility] Heparin Sodium (Porcine) (Heparin) 5,000 units SC Q12 [facility] PRN Reason: Protocol Last Admin: 04/10/17 09:12 Dose: 5,000 units Lactic Acid (Lac-Hydrin 12% Cream (140 G)) 1 ea TOP QID [facility] Last Admin: 04/10/17 16:46 Dose: 140 g Losartan Potassium (Cozaar) 50 mg PO DAILY [facility] Last Admin: 04/10/17 09:11 Dose: 50 mg Promethazine HCl/Codeine (Phenergan/Codeine Oral Syrup) 5 ml PO Q6 PRN PRN Reason: Cough Last Admin: 04/10/17 11:21 Dose: 5 ml Sevelamer HCl (Renagel) 2,400 mg PO TID [facility] Last Admin: 04/10/17 16:46 Dose: 2,400 mg Tramadol HCl (Ultram) 50 mg PO Q6 PRN PRN Reason: Pain, moderate (4-7) Vitamin B Complex/Vit C/Folic Acid (Nephro-Jacqueline) 1 tab PO DAILY [facility] Last Admin: 04/10/17 11:21 Dose: 1 tab - Constitutional Appears: No Acute Distress, Chronically Ill - Head Exam Head Exam: NORMAL INSPECTION - Eye Exam Eye Exam: PERRL - ENT Exam ENT Exam: Normal Exam - Neck Exam Neck Exam: Tenderness - Respiratory Exam Respiratory Exam: Decreased Breath Sounds (b/l) - Cardiovascular Exam Cardiovascular Exam: Irregular Rhythm - GI/Abdominal Exam GI & Abdominal Exam: Soft, Normal Bowel Sounds - Extremities Exam Extremities Exam: absent: Tenderness Additional comments: Trace edema lower extremities, blister LLE with dressing in place. - Back Exam Back Exam: tenderness (L-S) - Neurological Exam Neurological Exam: Alert, Oriented x3 - Psychiatric Exam Psychiatric exam: Normal Mood - Skin Skin Exam: Dry (scaly skin to lower extremities.), Warm Assessment and Plan (1) Anemia due to chronic kidney disease Status: Chronic (2) Pulmonary nodule, right Status: Chronic (3) ESRD needing dialysis Status: Chronic (4) CHF (congestive heart failure) Status: Chronic (5) Hypertension Status: Chronic (6) Weakness generalized Status: Deleted (7) Xerosis of skin Status: Chronic - Assessment and Plan (Free Text) Plan: F/U EKG report, To have Arteriogram tomorrow, continue current Tx.
--- NOTE | 2017-04-10 22:05 | PN ---
SUBJECTIVE: The patient underwent hemodialysis for 2.5 hours last night. He denies any chest pain. Shortness of breath has improved. PHYSICAL EXAMINATION VITAL SIGNS: Blood pressure 126/80, heart rate 101, temperature 98.1, respirations 16. HEENT: Clear conjunctivae. CHEST: Diminished breath sounds over the bases. HEART: S1 and S2 regular. EXTREMITIES: Dressings applied to the left leg. DIAGNOSTIC DATA: Chest CT scan without contrast. There is questionable pneumonia in both lung bases, and given location, aspiration pneumonitis is a consideration. Positive focal linear atelectasis in both lower lobes. Moderate cardiomegaly. Nephrolithiasis. ASSESSMENT: 1. Rapid atrial fibrillation. 2. Congestive heart failure. 3. End-stage renal disease, on hemodialysis. 4. Anemia. 5. Status post volume overload. RECOMMENDATIONS: Continue current amiodarone 100 mg once day, Cozaar 50 mg once a day, aspirin 81 mg once a day, subcutaneous heparin 5000 units twice a day, amlodipine at 5 mg once a day. I will review echocardiography study that was performed today as officially report is not available yet. Malik Aguirre MD
[2017-04-11] MEDS: Ammonium Lactate 12% Cream (140 g) TOP SCH ×4 (09:47→21:52)
[2017-04-11] MEDS: Multivitamin Vitamin B Complex (Nephro-Vite) Tab PO SCH (09:48)
--- NOTE | 2017-04-11 10:53 | PQF CHF ---
This form is a permanent part of the medical record 04/11/17 Dr. Aguirre, Please specify the TYPE and ACUITY of Heart Failure after workup. Documentation that the patient has a history of CHF and ESRD. Pro BNP 48,900. ECHO results are pending. Treated with Cozaar. Clarification of your documentation is requested to better reflect the severity of illness and intensity of treatment of your patient. Indicators present [x] Diagnosis of CHF and/or history of CHF [x] BNP > 200 [] Imaging Finding of Pulmonary Edema /Pleural Effusions [] Fluid/Volume Overload [x] Pitting edema 1+ [] Ejection Fraction < 40% (Indicative of Systolic Heart Failure) [] Ejection Fraction > 40% (Indicative of Diastolic Heart Failure) [] Dyspnea / Orthopenea / Paroxysmal Nocturnal Dyspnea [] Other: Location in the medical record that reflects the above clinical findings: [] Treatment Provided: [] PHYSICIAN'S RESPONSE Based on your medical judgment of the clinical indicators outlined above, are you treating this patient for a known or suspected: [] Acute CHF [] Systolic [] Diastolic [] Combined [] Chronic CHF [] Systolic [] Diastolic [] Combined [] Acute on Chronic CHF []Systolic [] Diastolic [] Combined [] CHF due hypertension [] Acute systolic []Chronic systolic [] Acute/ chronic systolic [] Other, please indicate: [] [] If Unable to Determine, please check the box, sign and date. Present On Admission (POA) Indicator: [] Present at the time of admission [] Not present at the time of admission [] Clinically Undetermined In responding to this query, please exercise your independent professional judgment. The fact that a question is asked does not imply that any particular answer is desired or expected. Thank you for your clarification on this documentation. If you have any questions please call:[phone] * Thank you, Marisa Bruno RN CDMP MTDD
--- NOTE | 2017-04-11 10:56 | CARD ---
APPROVED REPORT EXAM: Two-dimensional and M-mode echocardiogram with Doppler and color Doppler. Other Information Quality : GoodRhythm : Pacemaker INDICATION Chest Pain Surgery/Intervention Pacemaker: 2D DIMENSIONS IVSd1.60 (0.7-1.1cm)LVDd5.47 (3.9-5.9cm) LVOT Diameter2.30 (1.8-2.4cm)PWd1.26 (0.7-1.1cm) IVSs1.91 (0.8-1.2cm)LVDs3.54 (2.5-4.0cm) FS (%) 35.3 %PWs1.78 (0.8-1.2cm) M-Mode DIMENSIONS Left Atrium (MM)4.97 (2.5-4.0cm)IVSd1.09 (0.7-1.1cm) Aortic Root3.16 (2.2-3.7cm)LVDd6.72 (4.0-5.6cm) Aortic Cusp Exc.2.00 (1.5-2.0cm)PWd1.31 (0.7-1.1cm) IVSs1.56 cmFS (%) 37 % LVDs4.22 (2.0-3.8cm)PWs1.72 cm Mitral Valve MV E Vcaftcxg085.2cm/sMV DECEL [id number] A Jgosyfmj42.5cm/s MV MQY99ycG/A ratio2.5MVA (PHT)3.13cm2 TDI Lateral E' Peak V11.24cm/sMedial E' Peak V4.89cm/sE/Lateral E'9.1 E/Medial E'20.9 Pulmonary Valve PV Peak Sclrdjjd536.2cm/s Tricuspid Valve TR Peak Wvcfvdok049pf/sRAP QVSXZGSJ00gkMdTF Peak Gr.40mmHg HMXK40qjSt LEFT VENTRICLE The left ventricle is normal size. There is moderate concentric left ventricular hypertrophy. The left ventricular function is normal. The left ventricular ejection fraction is 60% There is normal LV segmental wall motion. Transmitral Doppler flow pattern is Grade II-pseudonormal filling dynamics. No left ventricle thrombus noted on this study. There is no ventricular septal defect visualized. There is no left ventricular aneurysm. There is no mass noted in the left ventricle. RIGHT VENTRICLE The right ventricle is normal size. There is normal right ventricular wall thickness. The right ventricular systolic function is normal. ATRIA The left atrium size is normal. The right atrium size is normal. The interatrial septum is intact with no evidence for an atrial septal defect. AORTIC VALVE The aortic valve is mildly sclerotic. No aortic regurgitation is present. There is no aortic valvular stenosis. There is no aortic valvular vegetation. MITRAL VALVE The mitral valve leaflets are calcified. There is no evidence of mitral valve prolapse. There is no mitral valve stenosis. There is no mitral valve regurgitation noted. TRICUSPID VALVE The tricuspid valve is normal in structure and function. There is severe tricuspid regurgitation. Right ventricular systolic pressure is estimated at 40-50 mmHg. There is mild pulmonary hypertension. There is no tricuspid valve prolapse or vegetation. There is no tricuspid valve stenosis. PULMONIC VALVE The pulmonary valve is normal in structure and function. There is no pulmonic valvular regurgitation. There is no pulmonic valvular stenosis. GREAT VESSELS The aortic root is normal in size. The ascending aorta is normal in size. The IVC is normal in size and collapses >50% with inspiration. PERICARDIAL EFFUSION The pericardium appears normal. There is no pleural effusion. <Conclusion> Normal LV Systolic Function Concentric LVH Severe Tricuspid Regurgitation with Mild Pulmonary Hypertension
--- NOTE | 2017-04-11 11:06 | PQF PNEUMO ---
This form is a permanent part of the medical record 04/11/17 Dr. Hager, Please specify the TYPE of PNEUMONIA in the progress notes after workup. Admitted with chest congestion, productive cough, moderate SOB and weakness. Recently hospitalized and discharged to a skilled nursing and then subsequently home. CT Chest: Question of pneumonia in both lung bases , given location aspiration pneumonitis is a consideration, atelectasis lower lobes. Treatment includes, Nebulizers, Vancomycin and Zosyn. Note: CAP, HAP, and HCAP indicate where the pneumonia was acquired, not a specific type. Clarification of your documentation is requested to better reflect the severity of illness and intensity of treatment of your patient. Indicators present [x] Documented diagnosis of pneumonia [x] CT Chest findings: Possible pneumonia [] Positive Sputum cultures [x] Cough [x] Abnormal lungs sounds : Decreased [] Poor gag reflex [] Speech consults/swallow evaluation [] Vent dependence [] Other: [] Location in the medical record that reflects the above clinical findings: [] Treatment Provided: [x] Dual IVAB PHYSICIAN'S RESPONSE Based on your medical judgment of the clinical indicators outlined above, are you treating this patient for a known or suspected: [] Aspiration pneumonia [] Viral pneumonia [] Interstitial pneumonia [] Bacterial pneumonia Please specify organism: [] [] Other, please indicate [] If Unable to Determine, please check the box, sign and date. Present On Admission (POA) Indicator: [] Present at the time of admission [] Not present at the time of admission [] Clinically Undetermined In responding to this query, please exercise your independent professional judgment. The fact that a question is asked does not imply that any particular answer is desired or expected. Thank you for your clarification on this documentation. If you have any questions please call:extension [phone] * Thank you, Marisa Bruno RN CDMP MTDD
[2017-04-11] MEDS: Albuterol-Ipratrop 3 mg / 0.5 (3 ml) UD INH PRN (11:09)
--- NOTE | 2017-04-11 11:14 | CARD ---
APPROVED REPORT EKG Measurement Heart [id number] <Conclusion> Atrial fibrillation with rapid ventricular response Left axis deviation Right bundle branch block Voltage criteria for left ventricular hypertrophy Inferior infarct, age undetermined T wave abnormality, consider lateral ischemia Abnormal ECG
--- NOTE | 2017-04-11 11:27 | CP.PCM.PN ---
Subjective - Date & Time of Evaluation Date of Evaluation: 04/11/17 Time of Evaluation: 11:25 - Subjective Subjective: Patient sitting in the chair less shortness of breath feels much better since he has dialysis late Tuesday night No chest pain reported Objective - Vital Signs/Intake and Output Vital Signs (last 24 hours): Temp Pulse Resp BP Pulse Ox 97.8 F 103 H 18 103/67 97 04/11/17 08:08 04/11/17 09:48 04/11/17 08:08 04/11/17 09:48 04/11/17 08:08 - Medications Medications: Current Medications Albuterol/Ipratropium (Duoneb 3 Mg/0.5 Mg (3 Ml) Ud) 3 ml INH RQ6 PRN PRN Reason: Shortness of Breath Last Admin: 04/11/17 11:09 Dose: 3 ml Amiodarone HCl (Cordarone) 100 mg PO DAILY [facility] Last Admin: 04/11/17 09:46 Dose: 100 mg Amlodipine Besylate (Norvasc) 5 mg PO DAILY [facility] Last Admin: 04/11/17 09:48 Dose: 5 mg Aspirin (Ecotrin) 81 mg PO DAILY [facility] Last Admin: 04/11/17 09:45 Dose: 81 mg Epoetin Giovanny (Procrit) 4,000 unit SC TTS [facility] Heparin Sodium (Porcine) (Heparin) 5,000 units SC Q12 [facility] PRN Reason: Protocol Last Admin: 04/11/17 10:01 Dose: Not Given Vancomycin HCl 500 mg/ Sodium (Chloride) 100 mls @ 100 mls/hr IVPB TTS [facility] Piperacillin Sod/Tazobactam (Sod 2.25 gm/ Sodium Chloride) 100 mls @ 100 mls/ hr IVPB Q8H [facility] Last Admin: 04/11/17 05:32 Dose: 100 mls/hr Lactic Acid (Lac-Hydrin 12% Cream (140 G)) 1 ea TOP QID [facility] Last Admin: 04/11/17 09:47 Dose: 1 units Losartan Potassium (Cozaar) 50 mg PO DAILY [facility] Last Admin: 04/11/17 09:46 Dose: 50 mg Promethazine HCl/Codeine (Phenergan/Codeine Oral Syrup) 5 ml PO Q6 PRN PRN Reason: Cough Last Admin: 04/10/17 21:33 Dose: 5 ml Sevelamer HCl (Renagel) 2,400 mg PO TID [facility] Last Admin: 04/11/17 09:49 Dose: 2,400 mg Tramadol HCl (Ultram) 50 mg PO Q6 PRN PRN Reason: Pain, moderate (4-7) Vitamin B Complex/Vit C/Folic Acid (Nephro-Jacqueline) 1 tab PO DAILY [facility] Last Admin: 04/11/17 09:48 Dose: 1 tab - Constitutional Appears: No Acute Distress - Respiratory Exam Respiratory Exam: Rhonchi. absent: Chest Wall Tenderness - Cardiovascular Exam Cardiovascular Exam: absent: JVD, Rubs - GI/Abdominal Exam GI & Abdominal Exam: Soft, Normal Bowel Sounds - Extremities Exam Extremities Exam: absent: Calf Tenderness - Back Exam Back Exam: absent: CVA tenderness (L), CVA tenderness (R) - Neurological Exam Neurological Exam: Alert Assessment and Plan (1) CKD (chronic kidney disease) stage V requiring chronic dialysis Assessment & Plan: End stage renal disease on dialysis TTS Patient came was congestion and he feels much better after hemodialysis Patient has very long complicated past medical history as noted PMHx: ESRD x 9 yrs, 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 Pacemaker 2008, L AVF. Hx of former cigar smoker x 30 yrs, quit in 1999. Hx PNA 2006. Hx Abdominal Hernia and feeding tube insertion and removal. Hx of been Comatose for a month in 2007 2nd to Renal failure. Hx of head injury. Status: Acute
[2017-04-11] MEDS: Promethazine/Cod 6.25mg-10mg/5ml Syr UD PO PRN ×2 (12:22→22:02)
--- NOTE | 2017-04-11 15:07 | CP.PCM.PN ---
Subjective - Date & Time of Evaluation Date of Evaluation: 04/11/17 Time of Evaluation: 11:00 - Subjective Subjective: F/U PNA Chest congestion improved, occasional cough with whitish loose phlegm, no SOB. Objective - Vital Signs/Intake and Output Vital Signs (last 24 hours): Temp Pulse Resp BP Pulse Ox 98 F 103 H 18 109/70 98 04/11/17 12:31 04/11/17 12:31 04/11/17 12:31 04/11/17 12:31 04/11/17 12:31 - Medications Medications: Current Medications Albuterol/Ipratropium (Duoneb 3 Mg/0.5 Mg (3 Ml) Ud) 3 ml INH RQ6 PRN PRN Reason: Shortness of Breath Last Admin: 04/11/17 11:09 Dose: 3 ml Amiodarone HCl (Cordarone) 100 mg PO DAILY [facility] Last Admin: 04/11/17 09:46 Dose: 100 mg Amlodipine Besylate (Norvasc) 5 mg PO DAILY [facility] Last Admin: 04/11/17 09:48 Dose: 5 mg Aspirin (Ecotrin) 81 mg PO DAILY [facility] Last Admin: 04/11/17 09:45 Dose: 81 mg Epoetin Giovanny (Procrit) 4,000 unit SC TTS [facility] Heparin Sodium (Porcine) (Heparin) 5,000 units SC Q12 [facility] PRN Reason: Protocol Last Admin: 04/11/17 10:01 Dose: Not Given Vancomycin HCl 500 mg/ Sodium (Chloride) 100 mls @ 100 mls/hr IVPB TTS [facility] Piperacillin Sod/Tazobactam (Sod 2.25 gm/ Sodium Chloride) 100 mls @ 100 mls/ hr IVPB Q8H [facility] Last Admin: 04/11/17 12:50 Dose: 100 mls/hr Lactic Acid (Lac-Hydrin 12% Cream (140 G)) 1 ea TOP QID [facility] Last Admin: 04/11/17 12:23 Dose: 1 units Losartan Potassium (Cozaar) 50 mg PO DAILY [facility] Last Admin: 04/11/17 09:46 Dose: 50 mg Promethazine HCl/Codeine (Phenergan/Codeine Oral Syrup) 5 ml PO Q6 PRN PRN Reason: Cough Last Admin: 04/11/17 12:22 Dose: 5 ml Sevelamer HCl (Renagel) 2,400 mg PO TID [facility] Last Admin: 04/11/17 12:24 Dose: 2,400 mg Tramadol HCl (Ultram) 50 mg PO Q6 PRN PRN Reason: Pain, moderate (4-7) Last Admin: 04/11/17 14:00 Dose: 50 mg Vitamin B Complex/Vit C/Folic Acid (Nephro-Jacqueline) 1 tab PO DAILY [facility] Last Admin: 04/11/17 09:48 Dose: 1 tab - Constitutional Appears: No Acute Distress, Chronically Ill - Head Exam Head Exam: NORMAL INSPECTION - Eye Exam Eye Exam: PERRL - ENT Exam ENT Exam: Normal Exam - Neck Exam Neck Exam: Tenderness - Respiratory Exam Respiratory Exam: Decreased Breath Sounds (b/l), Rhonchi (scattered at bases) - Cardiovascular Exam Cardiovascular Exam: REGULAR RHYTHM - GI/Abdominal Exam GI & Abdominal Exam: Soft, Normal Bowel Sounds - Extremities Exam Additional comments: Trace edema lower extremities, ulcer LLE with dressing in place. - Back Exam Back Exam: tenderness (L-S) - Neurological Exam Neurological Exam: Alert, Oriented x3 - Psychiatric Exam Psychiatric exam: Normal Mood - Skin Skin Exam: Dry (scaly skin to lower extremities), Warm Assessment and Plan (1) Pneumonia Status: Acute (2) Anemia due to chronic kidney disease Status: Chronic (3) Pulmonary nodule, right Status: Chronic (4) ESRD needing dialysis Status: Chronic (5) CHF (congestive heart failure) Status: Chronic (6) Hypertension Status: Chronic (7) Weakness generalized Status: Deleted (8) Xerosis of skin Status: Chronic - Assessment and Plan (Free Text) Plan: Continue Zosyn Vanco ajusted to Renal doses after HD, continue rest of Tx.
--- NOTE | 2017-04-11 17:38 | PN ---
DATE: SUBJECTIVE: The patient denies any chest pain. Shortness of breath has improved. PHYSICAL EXAMINATION: VITAL SIGNS: Blood pressure 109/70, heart rate 103, temperature 98, and respirations 18. HEENT: Pale conjunctivae. CHEST: Diminished breath sounds at the bases. HEART: S1 and S2 regular. EXTREMITIES: Dressings applied to the left leg. ASSESSMENT: 1. Status post volume overload. 2. Persistent atrial fibrillation. 3. History of multiple falls, the most recent one was earlier this month when the patient sustained 2 falls with impacting his head against the floor. 4. Mild pulmonary hypertension. 5. End-stage renal disease, on hemodialysis. RECOMMENDATIONS: Continue amiodarone 100 mg once day, Cozaar 50 mg once a day, aspirin 81 mg once a day, subcutaneous heparin 5000 units twice a day, amlodipine 5 mg once a day, Zosyn 2.25 g intravenously q.8 hours, and vancomycin 500 mg intravenously with hemodialysis TTS. The choice of heel top lift splitter anticoagulation may not be safe in view of recent history of recurrent falls and head trauma. The case was discussed with KEITH. Malik Aguirre MD
[2017-04-12] MEDS: Promethazine/Cod 6.25mg-10mg/5ml Syr UD PO PRN (08:47)
[2017-04-12] MEDS: Multivitamin Vitamin B Complex (Nephro-Vite) Tab PO SCH ×2 (08:48→10:55)
[2017-04-12] MEDS: Ammonium Lactate 12% Cream (140 g) TOP SCH ×3 (08:48→22:35)
--- NOTE | 2017-04-12 10:47 | CP.PCM.PN ---
Subjective - Date & Time of Evaluation Date of Evaluation: 04/12/17 Time of Evaluation: 10:45 - Subjective Subjective: Patient is out of bed in the chair Complaining of weakness some shortness of breath Patient scheduled for hemodialysis just now to start Ultrafiltration about 2500 mL if tolerated Sodium bath 138 Potassium 2 mEq Carbonate bath 34 Objective - Vital Signs/Intake and Output Vital Signs (last 24 hours): Temp Pulse Resp BP Pulse Ox 97.0 F L 66 20 150/79 94 L 04/12/17 08:15 04/12/17 08:15 04/12/17 08:15 04/12/17 08:15 04/12/17 08:15 - Medications Medications: Current Medications Albuterol/Ipratropium (Duoneb 3 Mg/0.5 Mg (3 Ml) Ud) 3 ml INH RQ6 PRN PRN Reason: Shortness of Breath Last Admin: 04/11/17 11:09 Dose: 3 ml Amiodarone HCl (Cordarone) 100 mg PO DAILY [facility] Last Admin: 04/11/17 09:46 Dose: 100 mg Amlodipine Besylate (Norvasc) 5 mg PO DAILY [facility] Last Admin: 04/11/17 09:48 Dose: 5 mg Aspirin (Ecotrin) 81 mg PO DAILY [facility] Last Admin: 04/11/17 09:45 Dose: 81 mg Epoetin Giovanny (Procrit) 4,000 unit SC TTS [facility] Heparin Sodium (Porcine) (Heparin) 5,000 units SC Q12 [facility] PRN Reason: Protocol Last Admin: 04/11/17 21:51 Dose: 5,000 units Vancomycin HCl 500 mg/ Sodium (Chloride) 100 mls @ 100 mls/hr IVPB TTS [facility] Piperacillin Sod/Tazobactam (Sod 2.25 gm/ Sodium Chloride) 100 mls @ 100 mls/ hr IVPB Q8H [facility] Last Admin: 04/12/17 05:49 Dose: 100 mls/hr Lactic Acid (Lac-Hydrin 12% Cream (140 G)) 1 ea TOP QID [facility] Last Admin: 04/12/17 08:48 Dose: 1 units Losartan Potassium (Cozaar) 50 mg PO DAILY [facility] Last Admin: 04/11/17 09:46 Dose: 50 mg Promethazine HCl/Codeine (Phenergan/Codeine Oral Syrup) 5 ml PO Q6 PRN PRN Reason: Cough Last Admin: 04/12/17 08:47 Dose: 5 ml Sevelamer HCl (Renagel) 2,400 mg PO TID [facility] Last Admin: 04/11/17 17:29 Dose: 2,400 mg Tramadol HCl (Ultram) 50 mg PO Q6 PRN PRN Reason: Pain, moderate (4-7) Last Admin: 04/11/17 14:00 Dose: 50 mg Vitamin B Complex/Vit C/Folic Acid (Nephro-Jacqueline) 1 tab PO DAILY [facility] Last Admin: 04/11/17 09:48 Dose: 1 tab - Constitutional Appears: No Acute Distress - ENT Exam ENT Exam: Mucous Membranes Moist - Respiratory Exam Respiratory Exam: Rhonchi, NORMAL BREATHING PATTERN. absent: Chest Wall Tenderness - Cardiovascular Exam Cardiovascular Exam: absent: JVD, Rubs - GI/Abdominal Exam GI & Abdominal Exam: Normal Bowel Sounds - Extremities Exam Extremities Exam: absent: Calf Tenderness - Back Exam Back Exam: absent: CVA tenderness (L), CVA tenderness (R) - Neurological Exam Neurological Exam: Alert Assessment and Plan (1) CKD (chronic kidney disease) stage V requiring chronic dialysis Assessment & Plan: And this stage renal disease as noted above with the dialysis order Status: Acute
--- NOTE | 2017-04-12 11:03 | RAD ---
PROCEDURE: Right hip HISTORY: Pain COMPARISON: Not available TECHNIQUE: Examination limited consists of two views but no true external rotation view submitted. FINDINGS: No evidence of fracture. No dislocation. Joint spaces and articular surfaces are preserved. IMPRESSION: Normal limited examination.
[2017-04-12] MEDS: Promethazine/Cod 6.25mg-10mg/5ml Syr UD PO SCH ×2 (15:08→22:30)
--- NOTE | 2017-04-12 16:25 | CP.PCM.PN ---
Subjective - Date & Time of Evaluation Date of Evaluation: 04/12/17 Time of Evaluation: 11:30 - Subjective Subjective: F/U PNA. Pt c/o of cough with yellowish loose phlegms on and off, no SOB, chest congestion improved Objective - Vital Signs/Intake and Output Vital Signs (last 24 hours): Temp Pulse Resp BP Pulse Ox 96.7 F L 54 L 20 112/53 L 96 04/12/17 12:00 04/12/17 12:00 04/12/17 12:00 04/12/17 12:00 04/12/17 12:00 - Medications Medications: Current Medications Albuterol/Ipratropium (Duoneb 3 Mg/0.5 Mg (3 Ml) Ud) 3 ml INH RQ6 PRN PRN Reason: Shortness of Breath Last Admin: 04/11/17 11:09 Dose: 3 ml Amiodarone HCl (Cordarone) 100 mg PO DAILY [facility] Last Admin: 04/12/17 10:51 Dose: Not Given Amlodipine Besylate (Norvasc) 5 mg PO DAILY [facility] Last Admin: 04/12/17 10:56 Dose: Not Given Aspirin (Ecotrin) 81 mg PO DAILY [facility] Last Admin: 04/12/17 10:52 Dose: Not Given Epoetin Giovanny (Procrit) 4,000 unit SC TTS [facility] Heparin Sodium (Porcine) (Heparin) 5,000 units SC Q12 [facility] PRN Reason: Protocol Last Admin: 04/12/17 10:55 Dose: Not Given Vancomycin HCl 500 mg/ Sodium (Chloride) 100 mls @ 100 mls/hr IVPB TTS [facility] Piperacillin Sod/Tazobactam (Sod 2.25 gm/ Sodium Chloride) 100 mls @ 100 mls/ hr IVPB Q8H [facility] Last Admin: 04/12/17 15:08 Dose: 100 mls/hr Lactic Acid (Lac-Hydrin 12% Cream (140 G)) 1 ea TOP QID [facility] Last Admin: 04/12/17 15:09 Dose: 1 units Losartan Potassium (Cozaar) 50 mg PO DAILY [facility] Last Admin: 04/12/17 10:51 Dose: Not Given Promethazine HCl/Codeine (Phenergan/Codeine Oral Syrup) 5 ml PO Q6 [facility] Last Admin: 04/12/17 15:08 Dose: 5 ml Sevelamer HCl (Renagel) 2,400 mg PO TID [facility] Last Admin: 04/12/17 10:56 Dose: Not Given Tramadol HCl (Ultram) 50 mg PO Q6 PRN PRN Reason: Pain, moderate (4-7) Last Admin: 04/11/17 14:00 Dose: 50 mg Vitamin B Complex/Vit C/Folic Acid (Nephro-Jacqueline) 1 tab PO DAILY [facility] Last Admin: 04/12/17 10:55 Dose: Not Given - Constitutional Appears: No Acute Distress - Head Exam Head Exam: NORMAL INSPECTION - Eye Exam Eye Exam: PERRL - ENT Exam ENT Exam: Normal Oropharynx - Neck Exam Neck Exam: Tenderness - Respiratory Exam Respiratory Exam: Decreased Breath Sounds (at bases), Rhonchi (few scattered at bases) Additional comments: Crackles R base. - Cardiovascular Exam Cardiovascular Exam: Irregular Rhythm, Murmur (systolic 1/6 LSB) - GI/Abdominal Exam GI & Abdominal Exam: Soft, Normal Bowel Sounds - Extremities Exam Additional comments: LLE with dressing in place. - Back Exam Back Exam: tenderness (L-S) - Neurological Exam Neurological Exam: Alert, Oriented x3 - Psychiatric Exam Psychiatric exam: Normal Mood - Skin Skin Exam: Dry (scally to lower extremities.), Warm Assessment and Plan (1) Pneumonia Status: Acute (2) Anemia due to chronic kidney disease Status: Chronic (3) Pulmonary nodule, right Status: Chronic (4) ESRD needing dialysis Status: Chronic (5) CHF (congestive heart failure) Status: Chronic (6) Hypertension Status: Chronic (7) Weakness generalized Status: Deleted (8) Xerosis of skin Status: Chronic - Assessment and Plan (Free Text) Plan: F/U Electrocardiogram report, continue Zosyn, Vanco and rest of Tx.
[2017-04-12] MEDS: Epoetin Alfa 4000 UNIT/ML Inj SC SCH (17:07)
--- NOTE | 2017-04-12 19:01 | CP.PCM.CON ---
History of Present Illness - History of Present Illness History of Present Illness: 66 year old male with PMHx of HTN, ESRD was seen at bedside regarding b/l LE dry skin and blistering. Patient states that since he has been on dialysis his legs have been very dry and he has been getting bullaes. Patient states that he has had multiple healing blisters b/l for a few months. Patient states that he has been putting ammonium lactate lotion on his legs for the dry skin. 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 He denies any pain to his LE. Patient denies of any other pedal complains at this time. Denies of any F/N/V/C/SOB. PMHx: ESRD, HTN, Syncope PSHx: Pacemaker, Tonsillectomy Allergies: WOODY Inhibitors Review of Systems - Review of Systems Review of Systems: ROS unremarkable outside of HPI Past Patient History - Infectious Disease Hx of Infectious Diseases: None - Past Medical History & Family History Past Medical History?: Yes - Past Social History Smoking Status: Former Smoker Alcohol: None Drugs: Denies Home Situation {Lives}: Alone - CARDIAC Hx Cardiac Disorders: Yes Hx Atrial Fibrillation: Yes Hx Cardia Arrhythmia: Yes Hx Congestive Heart Failure: Yes Hx Hypertension: Yes Hx Pacemaker: Yes Hx Peripheral Edema: Yes - PULMONARY Hx Respiratory Disorders: Yes Hx Pneumonia: Yes (2006) Other/Comment: Pulmonaru Nodule. - NEUROLOGICAL Hx Neurological Disorder: Yes Hx Syncope: Yes Other/Comment: COMATOSE 1 MONTH 2007 DUE TO RENAL FAILURE - HEENT Hx HEENT Problems: No Other/Comment: L - RENAL Hx Chronic Kidney Disease: Yes Hx Kidney Stones: No - ENDOCRINE/METABOLIC Hx Endocrine Disorders: No - HEMATOLOGICAL/ONCOLOGICAL Hx Blood Disorders: Yes Hx Anemia: Yes Hx Human Immunodeficiency Virus (HIV): No - INTEGUMENTARY Hx Dermatological Problems: Yes Other/Comment: CHRONIC PRURITUS - GASTROINTESTINAL Hx Gastrointestinal Disorders: Yes Other/Comment: ABD HERNIA HISTORY FEEDING TUBE INSERTION AND REMOVAL - GENITOURINARY/GYNECOLOGICAL Hx Genitourinary Disorders: No - PSYCHIATRIC Hx Psychophysiologic Disorder: No Hx Substance Use: No - SURGICAL HISTORY Hx Surgeries: Yes Hx Tonsillectomy: Yes - ANESTHESIA Hx Anesthesia: Yes Hx Anesthesia Reactions: No Hx Malignant Hyperthermia: No Meds Allergies/Adverse Reactions: Allergies Allergy/AdvReac Type Severity Reaction Status Date / Time woody inhibitors Allergy Mild ANAPHYLAXIS Uncoded 11/29/16 20:14 - Medications Medications: Current Medications Albuterol/Ipratropium (Duoneb 3 Mg/0.5 Mg (3 Ml) Ud) 3 ml INH RQ6 PRN PRN Reason: Shortness of Breath Last Admin: 04/11/17 11:09 Dose: 3 ml Amiodarone HCl (Cordarone) 100 mg PO DAILY [facility] Last Admin: 04/12/17 10:51 Dose: Not Given Amlodipine Besylate (Norvasc) 5 mg PO DAILY [facility] Last Admin: 04/12/17 10:56 Dose: Not Given Aspirin (Ecotrin) 81 mg PO DAILY [facility] Last Admin: 04/12/17 10:52 Dose: Not Given Epoetin Giovanny (Procrit) 4,000 unit SC TTS [facility] Last Admin: 04/12/17 17:07 Dose: 4,000 unit Heparin Sodium (Porcine) (Heparin) 5,000 units SC Q12 [facility] PRN Reason: Protocol Last Admin: 04/12/17 10:55 Dose: Not Given Vancomycin HCl 500 mg/ Sodium (Chloride) 100 mls @ 100 mls/hr IVPB TTS [facility] Piperacillin Sod/Tazobactam (Sod 2.25 gm/ Sodium Chloride) 100 mls @ 100 mls/ hr IVPB Q8H [facility] Last Admin: 04/12/17 15:08 Dose: 100 mls/hr Lactic Acid (Lac-Hydrin 12% Cream (140 G)) 1 ea TOP QID [facility] Last Admin: 04/12/17 15:09 Dose: 1 units Losartan Potassium (Cozaar) 50 mg PO DAILY [facility] Last Admin: 04/12/17 10:51 Dose: Not Given Promethazine HCl/Codeine (Phenergan/Codeine Oral Syrup) 5 ml PO Q6 [facility] Last Admin: 04/12/17 15:08 Dose: 5 ml Sevelamer HCl (Renagel) 2,400 mg PO TID [facility] Last Admin: 04/12/17 17:09 Dose: Not Given Tramadol HCl (Ultram) 50 mg PO Q6 PRN PRN Reason: Pain, moderate (4-7) Last Admin: 04/11/17 14:00 Dose: 50 mg Vitamin B Complex/Vit C/Folic Acid (Nephro-Jacqueline) 1 tab PO DAILY [facility] Last Admin: 04/12/17 10:55 Dose: Not Given Physical Exam - Constitutional Appears: Well, Non-toxic, No Acute Distress - Extremities Exam Additional comments: VASC: DP and PT pulses non-palpable b/l secondary to edema, CFT < 5 seconds to all digits b/l. Skin temperature is cool to cool from proximal to distal, Pitting edema noted on the distal lower extremity b/l DERM: Skin is diffusely xerotic b/l. There are no open lesions on the right LE. Bullae noted to right lateral leg. No interdigital maceration noted b/l. On left lateral anterior borjas, healing bullae with a superfical shedding of skin noted. no open lesions, No malodor, no erythema, no clinical suspicion of active infection noted NEURO: Protective sensation is grossly intact ORTHO: No pain on palpation to bullae site, no pain on squeezing the calf b/l - Neurological Exam Neurological exam: Alert, Oriented x3 - Psychiatric Exam Psychiatric exam: Normal Affect, Normal Mood Results - Vital Signs Recent Vital Signs: Last Vital Signs Temp 98.3 F 04/12/17 16:00 Pulse 92 H 04/12/17 16:00 Resp 18 04/12/17 16:00 BP 129/62 04/12/17 16:00 Pulse Ox 100 04/12/17 16:00 - Labs Result Diagrams: 04/09/17 06:00 04/09/17 06:00 Assessment & Plan - Assessment and Plan (Free Text) Assessment: 66 year old male with diffuse xerosis of the LE and healing bullae to the LLE Plan: Patient seen and evaluated Labs, charts and vitals reviewed Bullae on right leg lanced while palpating; serous fluid noted B/l healing blisters dressed with DSD Lotion applied to feet b/l Patient instructed to remove bandages in two days time Podiatry to sign off Thank you for this consult - Date & Time Date: 04/12/17 Time: 16:05
--- NOTE | 2017-04-12 20:33 | PN ---
DATE: SUBJECTIVE: The patient is experiencing productive cough and mild shortness of breath. He denies any retrosternal chest pain. PHYSICAL EXAMINATION: VITAL SIGNS: Blood pressure 112/53, heart rate 64, temperature 96.7, and respirations 20. HEENT: Pale conjunctivae. CHEST: Bibasal rhonchi. HEART: S1 and S2 regular. ABDOMEN: Soft. EXTREMITIES: 1+ pitting edema and dressing are applied to the left leg. LABORATORY DATA: Blood culture, I think, is after 3 days. Hip x-ray performed 2 days ago revealed no evidence of fracture or dislocation. Today's EKG revealed atrial fibrillation with slow ventricular response, heart rate is 57, right bundle branch block, left axis deviation, old inferior infarct and lesser ischemic changes. ASSESSMENT: 1. Atrial fibrillation. 2. Status post volume overload. 3. End-stage renal disease, on hemodialysis. 4. Hypertension. 5. Questionable underlying pneumonia. 6. Chronic left leg ulcer. RECOMMENDATIONS: Continue Phenergan with codeine syrup at 5 mL q. 6 hours. Continue Zosyn at 2.25 g intravenous q. 8 hours, aspirin 81 mg once a day, Cozaar 50 mg once a day, amiodarone 100 mg daily. Malik Aguirre MD
--- NOTE | 2017-04-12 23:10 | CARD ---
APPROVED REPORT EKG Measurement Heart [id number] <Conclusion> Atrial fibrillation with slow ventricular response Left axis deviation Right bundle branch block Voltage criteria for left ventricular hypertrophy Inferior infarct, age undetermined T wave abnormality, consider lateral ischemia Abnormal ECG
[2017-04-13] MEDS: Promethazine/Cod 6.25mg-10mg/5ml Syr UD PO SCH ×2 (04:46→09:07)
[2017-04-13] MEDS: Ammonium Lactate 12% Cream (140 g) TOP SCH ×4 (09:04→21:25)
[2017-04-13] MEDS: Multivitamin Vitamin B Complex (Nephro-Vite) Tab PO SCH (09:05)
--- NOTE | 2017-04-13 11:19 | CP.PCM.PN ---
Subjective - Date & Time of Evaluation Date of Evaluation: 04/13/17 Time of Evaluation: 11:15 - Subjective Subjective: Patient out of bed in the chair Complaining of less shortness of breath Vital signs stable No nausea or vomiting Objective - Vital Signs/Intake and Output Vital Signs (last 24 hours): Temp Pulse Resp BP Pulse Ox 98.8 F 87 18 119/71 96 04/13/17 08:00 04/13/17 09:05 04/13/17 08:00 04/13/17 09:05 04/13/17 08:00 - Medications Medications: Current Medications Albuterol/Ipratropium (Duoneb 3 Mg/0.5 Mg (3 Ml) Ud) 3 ml INH RQ6 PRN PRN Reason: Shortness of Breath Last Admin: 04/11/17 11:09 Dose: 3 ml Amiodarone HCl (Cordarone) 100 mg PO DAILY [facility] Last Admin: 04/13/17 08:59 Dose: 100 mg Amlodipine Besylate (Norvasc) 5 mg PO DAILY [facility] Last Admin: 04/13/17 09:05 Dose: 5 mg Aspirin (Ecotrin) 81 mg PO DAILY [facility] Last Admin: 04/13/17 09:00 Dose: 81 mg Epoetin Giovanny (Procrit) 4,000 unit SC TTS [facility] Last Admin: 04/12/17 17:07 Dose: 4,000 unit Heparin Sodium (Porcine) (Heparin) 5,000 units SC Q12 [facility]TYE PRN Reason: Protocol Last Admin: 04/13/17 09:00 Dose: 5,000 units Vancomycin HCl 500 mg/ Sodium (Chloride) 100 mls @ 100 mls/hr IVPB TTS [facility] Last Admin: 04/12/17 22:34 Dose: 100 mls/hr Piperacillin Sod/Tazobactam (Sod 2.25 gm/ Sodium Chloride) 100 mls @ 100 mls/ hr IVPB Q8H [facility] Last Admin: 04/13/17 04:40 Dose: 100 mls/hr Lactic Acid (Lac-Hydrin 12% Cream (140 G)) 1 ea TOP QID [facility] Last Admin: 04/13/17 09:04 Dose: 1 units Losartan Potassium (Cozaar) 50 mg PO DAILY [facility] Last Admin: 04/13/17 08:59 Dose: 50 mg Promethazine HCl/Codeine (Phenergan/Codeine Oral Syrup) 5 ml PO Q6 [facility] Last Admin: 04/13/17 09:07 Dose: 5 ml Promethazine HCl/Codeine (Phenergan/Codeine Oral Syrup) 5 ml PO Q6 PRN PRN Reason: Cough Sevelamer HCl (Renagel) 2,400 mg PO TID [facility] Last Admin: 04/13/17 09:05 Dose: 2,400 mg Tramadol HCl (Ultram) 50 mg PO Q6 PRN PRN Reason: Pain, moderate (4-7) Last Admin: 04/13/17 09:07 Dose: 50 mg Vitamin B Complex/Vit C/Folic Acid (Nephro-Jacqueline) 1 tab PO DAILY [facility] Last Admin: 04/13/17 09:05 Dose: 1 tab - Constitutional Appears: No Acute Distress - Respiratory Exam Respiratory Exam: Rhonchi. absent: Chest Wall Tenderness - Cardiovascular Exam Cardiovascular Exam: absent: JVD, Rubs - GI/Abdominal Exam GI & Abdominal Exam: Normal Bowel Sounds - Extremities Exam Extremities Exam: absent: Calf Tenderness - Back Exam Back Exam: absent: CVA tenderness (L), CVA tenderness (R) - Neurological Exam Neurological Exam: Alert Assessment and Plan (1) CKD (chronic kidney disease) stage V requiring chronic dialysis Assessment & Plan: End stage renal disease patient receiving dialysis TTS has been tolerating dialysis Receiving antibiotics as per primary team for possible pneumonia and infiltrate Patient came was volume overloaded initially and is doing much better on dialysis Continue monitoring his scheduled for dialysis for tomorrow Lower extremity follow-up for ulcer and skin changes Status: Acute
--- NOTE | 2017-04-13 15:53 | CP.PCM.PN ---
Subjective - Date & Time of Evaluation Date of Evaluation: 04/13/17 Time of Evaluation: 10:20 - Subjective Subjective: F/U PNA. Pt with no cough, no chest congestion, no c/o of pain L-S, cervical area, taking Tramadol. Objective - Vital Signs/Intake and Output Vital Signs (last 24 hours): Temp Pulse Resp BP Pulse Ox 98.4 F 69 18 116/75 98 04/13/17 12:00 04/13/17 12:00 04/13/17 12:00 04/13/17 12:00 04/13/17 12:00 - Medications Medications: Current Medications Albuterol/Ipratropium (Duoneb 3 Mg/0.5 Mg (3 Ml) Ud) 3 ml INH RQ6 PRN PRN Reason: Shortness of Breath Last Admin: 04/11/17 11:09 Dose: 3 ml Amiodarone HCl (Cordarone) 100 mg PO DAILY [facility] Last Admin: 04/13/17 08:59 Dose: 100 mg Amlodipine Besylate (Norvasc) 5 mg PO DAILY [facility] Last Admin: 04/13/17 09:05 Dose: 5 mg Aspirin (Ecotrin) 81 mg PO DAILY [facility] Last Admin: 04/13/17 09:00 Dose: 81 mg Epoetin Giovanny (Procrit) 4,000 unit SC TTS [facility] Last Admin: 04/12/17 17:07 Dose: 4,000 unit Heparin Sodium (Porcine) (Heparin) 5,000 units SC Q12 [facility] PRN Reason: Protocol Last Admin: 04/13/17 09:00 Dose: 5,000 units Vancomycin HCl 500 mg/ Sodium (Chloride) 100 mls @ 100 mls/hr IVPB TTS [facility] Last Admin: 04/12/17 22:34 Dose: 100 mls/hr Piperacillin Sod/Tazobactam (Sod 2.25 gm/ Sodium Chloride) 100 mls @ 100 mls/ hr IVPB Q8H [facility] Last Admin: 04/13/17 13:10 Dose: 100 mls/hr Lactic Acid (Lac-Hydrin 12% Cream (140 G)) 1 ea TOP QID [facility] Last Admin: 04/13/17 13:08 Dose: 1 units Losartan Potassium (Cozaar) 50 mg PO DAILY [facility] Last Admin: 04/13/17 08:59 Dose: 50 mg Promethazine HCl/Codeine (Phenergan/Codeine Oral Syrup) 5 ml PO Q6 PRN PRN Reason: Cough Sevelamer HCl (Renagel) 2,400 mg PO TID [facility] Last Admin: 04/13/17 13:09 Dose: 2,400 mg Tramadol HCl (Ultram) 50 mg PO Q6 PRN PRN Reason: Pain, moderate (4-7) Last Admin: 04/13/17 09:07 Dose: 50 mg Vitamin B Complex/Vit C/Folic Acid (Nephro-Jacqueline) 1 tab PO DAILY [facility] Last Admin: 04/13/17 09:05 Dose: 1 tab - Constitutional Appears: No Acute Distress - Head Exam Head Exam: NORMAL INSPECTION - Eye Exam Eye Exam: PERRL - ENT Exam ENT Exam: Normal Exam - Neck Exam Neck Exam: Tenderness - Respiratory Exam Respiratory Exam: Decreased Breath Sounds (at bases), Rhonchi (cattered ) - Cardiovascular Exam Cardiovascular Exam: Irregular Rhythm, Murmur (systolic 1/6 LSB) - GI/Abdominal Exam GI & Abdominal Exam: Soft, Normal Bowel Sounds - Extremities Exam Additional comments: LLE dressing in place. - Back Exam Back Exam: tenderness (L-S) - Neurological Exam Neurological Exam: Alert, CN II-XII Intact - Psychiatric Exam Psychiatric exam: Normal Mood - Skin Skin Exam: Warm Assessment and Plan (1) Pneumonia Status: Acute (2) Anemia due to chronic kidney disease Status: Chronic (3) Pulmonary nodule, right Status: Chronic (4) ESRD needing dialysis Status: Chronic (5) CHF (congestive heart failure) Status: Chronic (6) Hypertension Status: Chronic (7) Weakness generalized Status: Deleted (8) Xerosis of skin Status: Chronic - Assessment and Plan (Free Text) Plan: Continue Zosyn, Vanco and rest of Tx, ID consult.
[2017-04-13] MEDS: Promethazine/Cod 6.25mg-10mg/5ml Syr UD PO PRN (20:15)
--- NOTE | 2017-04-13 21:17 | PN ---
SUBJECTIVE: The patient is experiencing mild shortness of breath as well as productive cough. No retrosternal chest pain. PHYSICAL EXAMINATION: VITAL SIGNS: Blood pressure 116/75, heart rate 69, temperature 98.4 and respirations 18. HEENT: Pale conjunctiva. CHEST: Diminished breath sounds over the bases. HEART: S1 and S2 regular. EXTREMITIES: , there is 1+ pitting edema. ASSESSMENT: 1. Status post volume overload. 2. Atrial fibrillation. 3. End-stage renal disease, on hemodialysis. 4. Chronic left leg ulcer. 5. Anemia. 6. Pneumonia. 7. Hypertension. RECOMMENDATIONS: I did review yesterday's EKG which revealed atrial fibrillation with slow ventricular response at a rate of 57, left axis deviation, right bundle-branch block, LVH by voltage, inferior infract of indeterminate age with Q wave abnormality, consider lateral ischemia. Continue current conservative medical approach including amiodarone 100 mg once day, Cozaar 50 mg once a day, aspirin 81 mg once a day, subcutaneous heparin 5000 units twice a day, Norvasc 5 mg once a day, Zosyn at 2.25 g q.8 hours, vancomycin 500 mg intravenously with hemodialysis. The patient told me he refuses idea of having physical therapy because of his right thigh pain. Malik Aguirre MD
[2017-04-14] MEDS: Ammonium Lactate 12% Cream (140 g) TOP SCH ×3 (09:07→16:43)
[2017-04-14] MEDS: Multivitamin Vitamin B Complex (Nephro-Vite) Tab PO SCH (09:08)
--- NOTE | 2017-04-14 11:22 | CP.PCM.PN ---
Subjective - Date & Time of Evaluation Date of Evaluation: 04/14/17 Time of Evaluation: 11:20 - Subjective Subjective: He was seen on hemodialysis now Patient and bed appears to be comfortable no shortness of breath no difficulty breathing Objective - Vital Signs/Intake and Output Vital Signs (last 24 hours): Temp Pulse Resp BP Pulse Ox 97.3 F L 90 20 102/61 95 04/14/17 08:40 04/14/17 09:08 04/14/17 08:40 04/14/17 09:08 04/14/17 08:40 - Medications Medications: Current Medications Albuterol/Ipratropium (Duoneb 3 Mg/0.5 Mg (3 Ml) Ud) 3 ml INH RQ6 PRN PRN Reason: Shortness of Breath Last Admin: 04/11/17 11:09 Dose: 3 ml Amiodarone HCl (Cordarone) 100 mg PO DAILY [facility] Last Admin: 04/14/17 09:06 Dose: Not Given Amlodipine Besylate (Norvasc) 5 mg PO DAILY [facility] Last Admin: 04/14/17 09:08 Dose: Not Given Aspirin (Ecotrin) 81 mg PO DAILY [facility] Last Admin: 04/14/17 09:07 Dose: Not Given Epoetin Giovanny (Procrit) 4,000 unit SC TTS [facility] Last Admin: 04/12/17 17:07 Dose: 4,000 unit Heparin Sodium (Porcine) (Heparin) 5,000 units SC Q12 [facility] PRN Reason: Protocol Last Admin: 04/14/17 09:07 Dose: Not Given Vancomycin HCl 500 mg/ Sodium (Chloride) 100 mls @ 100 mls/hr IVPB TTS [facility] Last Admin: 04/14/17 09:10 Dose: 100 mls/hr Piperacillin Sod/Tazobactam (Sod 2.25 gm/ Sodium Chloride) 100 mls @ 100 mls/ hr IVPB Q8H [facility] Last Admin: 04/14/17 05:02 Dose: 100 mls/hr Lactic Acid (Lac-Hydrin 12% Cream (140 G)) 1 ea TOP QID [facility] Last Admin: 04/14/17 09:07 Dose: 1 applic Losartan Potassium (Cozaar) 50 mg PO DAILY [facility] Last Admin: 04/14/17 09:06 Dose: Not Given Promethazine HCl/Codeine (Phenergan/Codeine Oral Syrup) 5 ml PO Q6 PRN PRN Reason: Cough Last Admin: 04/13/17 20:15 Dose: 5 ml Sevelamer HCl (Renagel) 2,400 mg PO TID [facility] Last Admin: 04/14/17 09:09 Dose: Not Given Tramadol HCl (Ultram) 50 mg PO Q6 PRN PRN Reason: Pain, moderate (4-7) Last Admin: 04/13/17 20:15 Dose: 50 mg Vitamin B Complex/Vit C/Folic Acid (Nephro-Jacqueline) 1 tab PO DAILY [facility] Last Admin: 04/14/17 09:08 Dose: 1 tab - Constitutional Appears: No Acute Distress - ENT Exam ENT Exam: Mucous Membranes Moist - Respiratory Exam Respiratory Exam: NORMAL BREATHING PATTERN. absent: Chest Wall Tenderness - Cardiovascular Exam Cardiovascular Exam: absent: JVD, Rubs - GI/Abdominal Exam GI & Abdominal Exam: absent: Guarding - Extremities Exam Extremities Exam: absent: Calf Tenderness - Back Exam Back Exam: absent: CVA tenderness (L), CVA tenderness (R) - Neurological Exam Neurological Exam: Alert Assessment and Plan (1) CKD (chronic kidney disease) stage V requiring chronic dialysis Assessment & Plan: End stage renal disease receiving dialysis and tolerating well with sodium bath 138 potassium past 2 mEq and bicarbonate bath 34 Patient receiving antibiotics for pneumonia Patient doing much better Status: Acute
[2017-04-14 12:30] LABS: HEMATOCRIT 34.8 % (35.0-51.0); MEAN CELL VOLUME 102.6 fl (80.0-94.0); MEAN CORPUSCULAR HEMOGLOBIN 32.9 pg (27.0-31.0); MEAN CORPUSCULAR HGB CONC 32.1 g/dL (33.0-37.0); RED CELL DISTRIBUTION WIDTH 17.2 % (11.5-14.5); WHITE BLOOD COUNT 3.3 K/uL (4.8-10.8)
[2017-04-14 12:42] LABS: ALB/GLOB RATIO 0.8 (1.0-2.1); BILIRUBIN,TOTAL 0.7 mg/dl (0.2-1.3); CALCIUM 9.2 mg/dL (8.4-10.2); POTASSIUM 4.2 MMOL/L (3.6-5.0); TOTAL PROTEIN 8.4 G/DL (6.3-8.2)
[2017-04-14] MEDS: Epoetin Alfa 4000 UNIT/ML Inj SC SCH (14:44)
--- NOTE | 2017-04-14 16:15 | CT ---
PROCEDURE: CT Lumbar Spine without contrast HISTORY: Back pain, R thigh pain COMPARISON: Comparison is made to the previous study dated 02/21/2017 TECHNIQUE: Axial computed tomography images were obtained of the lumbar spine without the use of intravenous contrast. Coronal and sagittal reformatted images were created and reviewed. Radiation dose: Total exam DLP = 1213.94 mGy-cm. This CT exam was performed using one or more of the following dose reduction techniques: Automated exposure control, adjustment of the mA and/or kV according to patient size, and/or use of iterative reconstruction technique. FINDINGS: VERTEBRAE: Again seen large endplate erosion at the inferior endplate of L4 and superior endplate of L5. Also again seen is focal bony destruction/bone defect seen at the anterior aspect of the L5 vertebral body. Endplate focal erosion also seen at those inferior endplate of L3 and superior endplate of L4. No significant interval change in the shape of the vertebrae since the previous exam. Again seen is healing fractures at the right and left transverse process of L2 and L3. DISCS/SPINAL CANAL/NEURAL FORAMINA: L1-2: Small osteophyte disc bulge seen without evidence of significant spinal or neural foraminal narrowing. L2-3: Small broad-based disc bulge seen associated with posterior ligament and facet joint hypertrophy which resulting in mild spinal stenosis. No evidence of significant neural foraminal narrowing. L3-4: Moderate to large size disc herniation associated with posterior ligament and facet joint hypertrophy which resulting in moderate spinal and bilateral neural foramina narrowing right more than left. L4-5: Small to moderate size disc herniation associated with posterior ligament and facet joint hypertrophy which resulting in [id number] spinal and moderate to severe right neural foraminal narrowing. L5-S1: Small osteophyte disc bulging complex seen without evidence of significant spinal or neural foraminal narrowing. PARASPINAL SOFT TISSUES: Foci of calcification in the small size kidneys are again seen. OTHER FINDINGS: None. IMPRESSION: No significant interval change since the previous exam. Severe narrowing of the L4-L5 disc space associated with large erosion/destruction in the adjacent endplates. Moderate narrowing of the L3-L4 disc space also associated with small to moderate size endplate erosions. Multilevel osteophyte disc bulge/ herniation complex associated with posterior ligament and facet joint hypertrophy which resulting in multilevel spinal and neural foraminal narrowing as described above more prominent at L3-L4 and L4-L5.
--- NOTE | 2017-04-14 17:49 | CP.PCM.PN ---
Subjective - Date & Time of Evaluation Date of Evaluation: 04/14/17 Time of Evaluation: 11:00 - Subjective Subjective: F/U PNA Pt with occasional cough, chest congestion greatly improved, c/o of cervical and L-S pain at times extending to the hip and R thigh. Objective - Vital Signs/Intake and Output Vital Signs (last 24 hours): Temp Pulse Resp BP Pulse Ox 98.1 F 106 H 20 117/78 99 04/14/17 16:04 04/14/17 16:04 04/14/17 16:04 04/14/17 16:04 04/14/17 16:04 - Medications Medications: Current Medications Albuterol/Ipratropium (Duoneb 3 Mg/0.5 Mg (3 Ml) Ud) 3 ml INH RQ6 PRN PRN Reason: Shortness of Breath Last Admin: 04/11/17 11:09 Dose: 3 ml Amiodarone HCl (Cordarone) [address] [facility] Last Admin: 04/14/17 09:06 Dose: Not Given Amlodipine Besylate (Norvasc) [address] [facility] Last Admin: 04/14/17 09:08 Dose: Not Given Aspirin (Ecotrin) [address] [facility] Last Admin: 04/14/17 09:07 Dose: Not Given Epoetin Giovanny (Procrit) 4,[address] [facility] Last Admin: 04/14/17 14:44 Dose: 4,000 unit Heparin Sodium (Porcine) (Heparin) 5,000 units SC Q12 [facility] PRN Reason: Protocol Last Admin: 04/14/17 09:07 Dose: Not Given Vancomycin HCl 500 mg/ Sodium (Chloride) 100 mls @ 100 mls/hr IVPB TTS [facility] Last Admin: 04/14/17 09:10 Dose: 100 mls/hr Piperacillin Sod/Tazobactam (Sod 2.25 gm/ Sodium Chloride) 100 mls @ 100 mls/ hr IVPB Q8H [facility] Last Admin: 04/14/17 12:55 Dose: 100 mls/hr Lactic Acid (Lac-Hydrin 12% Cream (140 G)) [address] [facility] Last Admin: 04/14/17 16:43 Dose: 1 applic Losartan Potassium (Cozaar) [address] [facility] Last Admin: 04/14/17 09:06 Dose: Not Given Promethazine HCl/Codeine (Phenergan/Codeine Oral Syrup) 5 ml PO Q6 PRN PRN Reason: Cough Last Admin: 04/13/17 20:15 Dose: 5 ml Sevelamer HCl (Renagel) 2,400 mg PO TID [facility] Last Admin: 04/14/17 16:46 Dose: 2,400 mg Tramadol HCl (Ultram) 50 mg PO Q6 PRN PRN Reason: Pain, moderate (4-7) Last Admin: 04/14/17 17:26 Dose: 50 mg Vitamin B Complex/Vit C/Folic Acid (Nephro-Jacqueline) 1 tab PO DAILY [facility] Last Admin: 04/14/17 09:08 Dose: 1 tab - Labs Labs: 04/14/17 12:27 04/14/17 12:27 - Constitutional Appears: No Acute Distress - Head Exam Head Exam: NORMAL INSPECTION - Eye Exam Eye Exam: PERRL - ENT Exam ENT Exam: Normal Exam - Neck Exam Neck Exam: Tenderness - Respiratory Exam Respiratory Exam: Decreased Breath Sounds (at bases), Rhonchi (scattered) - Cardiovascular Exam Cardiovascular Exam: Irregular Rhythm, Murmur (1/6 LSB) - GI/Abdominal Exam GI & Abdominal Exam: Soft, Normal Bowel Sounds - Extremities Exam Additional comments: CDI b/l lower extremities. - Back Exam Back Exam: tenderness (L-S) - Neurological Exam Neurological Exam: Alert, CN II-XII Intact - Psychiatric Exam Psychiatric exam: Normal Mood - Skin Skin Exam: Warm Assessment and Plan (1) Pneumonia Status: Acute (2) Anemia due to chronic kidney disease Status: Chronic (3) Pulmonary nodule, right Status: Chronic (4) ESRD needing dialysis Status: Chronic (5) CHF (congestive heart failure) Status: Chronic (6) Hypertension Status: Chronic (7) Weakness generalized Status: Deleted (8) Xerosis of skin Status: Chronic - Assessment and Plan (Free Text) Plan: F/U CT L-S spine, continue current Tx.
[2017-04-14] MEDS: Albuterol-Ipratrop 3 mg / 0.5 (3 ml) UD INH PRN (18:20)
--- NOTE | 2017-04-14 18:25 | CP.PCM.CON ---
History of Present Illness - History of Present Illness History of Present Illness: Pt with pmhx of multiple medical problems including CHF ESKD presents with greenish sputum and dyspnea. No fever Past Patient History - Infectious Disease Hx of Infectious Diseases: None - Past Medical History & Family History Past Medical History?: Yes - Past Social History Smoking Status: Former Smoker Alcohol: None Drugs: Denies Home Situation {Lives}: Alone - CARDIAC Hx Cardiac Disorders: Yes Hx Atrial Fibrillation: Yes Hx Cardia Arrhythmia: Yes Hx Congestive Heart Failure: Yes Hx Hypertension: Yes Hx Pacemaker: Yes Hx Peripheral Edema: Yes - PULMONARY Hx Respiratory Disorders: Yes Hx Pneumonia: Yes (2006) Other/Comment: Pulmonaru Nodule. - NEUROLOGICAL Hx Neurological Disorder: Yes Hx Syncope: Yes Other/Comment: COMATOSE 1 MONTH 2007 DUE TO RENAL FAILURE - HEENT Hx HEENT Problems: No Other/Comment: L - RENAL Hx Chronic Kidney Disease: Yes Hx Kidney Stones: No - ENDOCRINE/METABOLIC Hx Endocrine Disorders: No - HEMATOLOGICAL/ONCOLOGICAL Hx Blood Disorders: Yes Hx Anemia: Yes Hx Human Immunodeficiency Virus (HIV): No - INTEGUMENTARY Hx Dermatological Problems: Yes Other/Comment: CHRONIC PRURITUS - GASTROINTESTINAL Hx Gastrointestinal Disorders: Yes Other/Comment: ABD HERNIA HISTORY FEEDING TUBE INSERTION AND REMOVAL - GENITOURINARY/GYNECOLOGICAL Hx Genitourinary Disorders: No - PSYCHIATRIC Hx Psychophysiologic Disorder: No Hx Substance Use: No - SURGICAL HISTORY Hx Surgeries: Yes Hx Tonsillectomy: Yes - ANESTHESIA Hx Anesthesia: Yes Hx Anesthesia Reactions: No Hx Malignant Hyperthermia: No Meds Allergies/Adverse Reactions: Allergies Allergy/AdvReac Type Severity Reaction Status Date / Time venice inhibitors Allergy Mild ANAPHYLAXIS Uncoded 11/29/16 20:14 - Medications Medications: Current Medications Albuterol/Ipratropium (Duoneb 3 Mg/0.5 Mg (3 Ml) Ud) 3 ml INH RQ6 PRN PRN Reason: Shortness of Breath Last Admin: 04/14/17 18:20 Dose: 3 ml Amiodarone HCl (Cordarone) 100 mg PO DAILY [facility] Last Admin: 04/14/17 18:05 Dose: 100 mg Amlodipine Besylate (Norvasc) 5 mg PO DAILY [facility] Last Admin: 04/14/17 09:08 Dose: Not Given Aspirin (Ecotrin) 81 mg PO DAILY [facility] Last Admin: 04/14/17 09:07 Dose: Not Given Epoetin Giovanny (Procrit) 4,000 unit SC TTS [facility] Last Admin: 04/14/17 14:44 Dose: 4,000 unit Heparin Sodium (Porcine) (Heparin) 5,000 units SC Q12 [facility] PRN Reason: Protocol Last Admin: 04/14/17 09:07 Dose: Not Given Vancomycin HCl 500 mg/ Sodium (Chloride) 100 mls @ 100 mls/hr IVPB TTS [facility] Last Admin: 04/14/17 09:10 Dose: 100 mls/hr Piperacillin Sod/Tazobactam (Sod 2.25 gm/ Sodium Chloride) 100 mls @ 100 mls/ hr IVPB Q8H [facility] Last Admin: 04/14/17 12:55 Dose: 100 mls/hr Lactic Acid (Lac-Hydrin 12% Cream (140 G)) 1 ea TOP QID [facility] Last Admin: 04/14/17 16:43 Dose: 1 applic Losartan Potassium (Cozaar) 50 mg PO DAILY [facility] Last Admin: 04/14/17 09:06 Dose: Not Given Promethazine HCl/Codeine (Phenergan/Codeine Oral Syrup) 5 ml PO Q6 PRN PRN Reason: Cough Last Admin: 04/13/17 20:15 Dose: 5 ml Sevelamer HCl (Renagel) 2,400 mg PO TID [facility] Last Admin: 04/14/17 16:46 Dose: 2,400 mg Tramadol HCl (Ultram) 50 mg PO Q6 PRN PRN Reason: Pain, moderate (4-7) Last Admin: 04/14/17 17:26 Dose: 50 mg Vitamin B Complex/Vit C/Folic Acid (Nephro-Jacqueline) 1 tab PO DAILY [facility] Last Admin: 04/14/17 09:08 Dose: 1 tab Physical Exam - Respiratory Exam Additional comments: scattered rales Results - Vital Signs Recent Vital Signs: Last Vital Signs Temp 98.1 F 04/14/17 16:04 Pulse 106 H 04/14/17 18:05 Resp 20 04/14/17 16:04 BP 117/68 04/14/17 18:05 Pulse Ox 99 04/14/17 16:04 - Labs Result Diagrams: 04/14/17 12:27 04/14/17 12:27 Labs: Laboratory Results - last 24 hr 04/14/17 04/14/17 04/14/17 11:24 12:27 12:27 WBC 3.3 L RBC 3.39 L Hgb 11.1 L D Hct 34.8 L MCV 102.6 H D MCH 32.9 H MCHC 32.1 L RDW 17.2 H Plt Count 139 Sodium 141 Potassium 4.2 Chloride 103 Carbon Dioxide 26 Anion Gap 17 BUN 18 Creatinine 4.8 H Est GFR ( Amer) 15 Est GFR (Non-Af Amer) 12 POC Glucose (mg/dL) 77 Random Glucose 69 L Calcium 9.2 Total Bilirubin 0.7 AST 40 ALT 18 L Alkaline Phosphatase 111 Total Protein 8.4 H Albumin 3.8 Globulin 4.6 H Albumin/Globulin Ratio 0.8 L 04/14/17 15:44 WBC RBC Hgb Hct MCV MCH MCHC RDW Plt Count Sodium Potassium Chloride Carbon Dioxide Anion Gap BUN Creatinine Est GFR ( Amer) Est GFR (Non-Af Amer) POC Glucose (mg/dL) 118 H Random Glucose Calcium Total Bilirubin AST ALT Alkaline Phosphatase Total Protein Albumin Globulin Albumin/Globulin Ratio Assessment & Plan - Assessment and Plan (Free Text) Assessment: bronchitis with bilateral atelectasis and possible pneumonia clinically stable. No leukocytosis fever or growth on culture. Continue Zosyn for 2 more days and Vancomycin 500mg x 2 more doses with HD F/U any cutlures
[2017-04-14] MEDS: Promethazine/Cod 6.25mg-10mg/5ml Syr UD PO PRN (21:35)
--- NOTE | 2017-04-14 23:37 | CP.PCM.PN ---
Subjective - Date & Time of Evaluation Date of Evaluation: 04/14/17 Time of Evaluation: 18:00 - Subjective Subjective: CARDIOLOGY COVERAGE NOTE FOR DR MENDEZ. PT ADMITTED TO IMPROVING DYSPNEA SINCE 1ST HD TREATMENT. DENIES CP. ADMITS TO OCCASIONAL PALP SINCE ADMISSION NOT ASSOCIATED WITH [facility]. Objective - Vital Signs/Intake and Output Vital Signs (last 24 hours): Temp Pulse Resp BP Pulse Ox 98.1 F 106 H 20 117/68 99 04/14/17 16:04 04/14/17 18:05 04/14/17 16:04 04/14/17 18:05 04/14/17 16:04 - Medications Medications: Current Medications Albuterol/Ipratropium (Duoneb 3 Mg/0.5 Mg (3 Ml) Ud) 3 ml INH RQ6 PRN PRN Reason: Shortness of Breath Last Admin: 04/14/17 18:20 Dose: 3 ml Amiodarone HCl (Cordarone) 100 mg PO DAILY [facility] Last Admin: 04/14/17 18:05 Dose: 100 mg Amlodipine Besylate (Norvasc) 5 mg PO DAILY [facility] Last Admin: 04/14/17 09:08 Dose: Not Given Aspirin (Ecotrin) 81 mg PO DAILY [facility] Last Admin: 04/14/17 09:07 Dose: Not Given Epoetin Giovanny (Procrit) 4,000 unit SC TTS [facility] Last Admin: 04/14/17 14:44 Dose: 4,000 unit Heparin Sodium (Porcine) (Heparin) 5,000 units SC Q12 [facility] PRN Reason: Protocol Last Admin: 04/14/17 21:15 Dose: 5,000 units Vancomycin HCl 500 mg/ Sodium (Chloride) 100 mls @ 100 mls/hr IVPB TTS [facility] Last Admin: 04/14/17 09:10 Dose: 100 mls/hr Piperacillin Sod/Tazobactam (Sod 2.25 gm/ Sodium Chloride) 100 mls @ 100 mls/ hr IVPB Q8H [facility] Last Admin: 04/14/17 21:11 Dose: 100 mls/hr Lactic Acid (Lac-Hydrin 12% Cream (140 G)) 1 ea TOP QID [facility] Last Admin: 04/14/17 16:43 Dose: 1 applic Losartan Potassium (Cozaar) 50 mg PO DAILY [facility] Last Admin: 04/14/17 09:06 Dose: Not Given Promethazine HCl/Codeine (Phenergan/Codeine Oral Syrup) 5 ml PO Q6 PRN PRN Reason: Cough Last Admin: 04/14/17 21:35 Dose: 5 ml Sevelamer HCl (Renagel) 2,400 mg PO TID [facility] Last Admin: 04/14/17 16:46 Dose: 2,400 mg Tramadol HCl (Ultram) 50 mg PO Q6 PRN PRN Reason: Pain, moderate (4-7) Last Admin: 04/14/17 17:26 Dose: 50 mg Vitamin B Complex/Vit C/Folic Acid (Nephro-Jacqueline) 1 tab PO DAILY [facility] Last Admin: 04/14/17 09:08 Dose: 1 tab - Labs Labs: 04/14/17 12:27 04/14/17 12:27 - Constitutional Appears: Non-toxic - Head Exam Head Exam: ATRAUMATIC, NORMAL INSPECTION, NORMOCEPHALIC - Eye Exam Eye Exam: EOMI, Normal appearance, PERRL Pupil Exam: NORMAL ACCOMODATION, PERRL - ENT Exam ENT Exam: Mucous Membranes Moist, Normal Exam - Neck Exam Neck Exam: Full ROM, Normal Inspection. absent: Lymphadenopathy - Respiratory Exam Respiratory Exam: Decreased Breath Sounds. absent: Accessory Muscle Use, Chest Wall Tenderness, Clear to Ausculation Bilateral, Prolonged Expiratory Phase, Rales, Rhonchi, Wheezes, Respiratory Distress, Stridor, NORMAL BREATHING PATTERN Additional comments: DECREASED B/S AT BASES WITH INSP CRACKLES AND RHONCHI AT BASES. NO DULLNESS TO PERCUSSION. - Cardiovascular Exam Cardiovascular Exam: Gallop, Irregular Rhythm, +S1, +S2, Murmur. absent: Bradycardia, Tachycardia, Clicks, Diastolic murmur, REGULAR RHYTHM, JVD, RRR, Rubs, +S4 Additional comments: S3 GALLOP NOTED THROUGH OUT. LOUDEST AT APEX. SM AT LLSB - GI/Abdominal Exam GI & Abdominal Exam: Soft, Normal Bowel Sounds. absent: Bruit, Distended, Firm , Guarding, Rigid, Tenderness, Diminished Bowel Sounds, Hernia, Hyperactive Bowel Sounds, Hypoactive Bowel Sounds, Organomegaly, Pulsatile Mass, Rebound, Mass - Rectal Exam Rectal Exam: Deferred - Extremities Exam Extremities Exam: Full ROM. absent: Calf Tenderness, Joint Swelling, Normal Capillary Refill, Normal Inspection, Pedal Edema, Tenderness Additional comments: B/L LE'S DRESSINGS ARE CDI. MILD EDEMA B/L. - Back Exam Back Exam: NORMAL INSPECTION. absent: CVA tenderness (L), CVA tenderness (R), Full ROM, muscle spasm, paraspinal tenderness, rash noted, tenderness, vertebral tenderness - Neurological Exam Neurological Exam: Alert, Awake, CN II-XII Intact, Normal Gait, Oriented x3. absent: Abnormal Gait, Altered, Motor Sensory Deficit, Reflexes Normal Additional comments: PT DOES SEEM TO REPEAT STATEMENTS OFTEN. - Psychiatric Exam Psychiatric exam: Normal Affect, Normal Mood. absent: Agitated, Anxious, Depressed, Flat Affect, Homicidal Ideation, Manic, Suicidal Ideation - Skin Skin Exam: Dry, Intact, Normal Color, Warm. absent: Abrasion, Cyanosis, Diaphoretic, Erythema, Mottled, Pallor, Pallor, Petechiae, Rash, Urticaria, Vesicles Assessment and Plan (1) Palpitation Status: Acute (2) CHF (congestive heart failure) Status: Chronic (3) ESRD needing dialysis Status: Chronic (4) Hypertension Status: Chronic (5) Afib Status: Acute (6) Diastolic dysfunction with acute on chronic heart failure Status: Acute (7) Pulmonary HTN Status: Acute (8) Tricuspid valve regurgitation Status: Acute - Assessment and Plan (Free Text) Plan: TELE REVEALS OCCASIONAL IRREGULAR TACHYCARDIA. PTS PALP LIKELY DUE TO HIS AFIB. PT BP IS LOW, PULSE REMAINS ELEVATED WOULD CONSIDER STOPPING NORVASC AND ADDING METOPROLOL OR CARDIZEM FOR RATE CONTROL MONITOR LYTES CONTINUE HD WILL NEED FURTHER VOLUME REDUCTION GIVEN S3 GALLOP AND BLL FINDINGS CHECK MAG LEVEL AND MAINTAIN ABOVE 2 WILL FOLLOW. THANKS.
[2017-04-15] MEDS: Ammonium Lactate 12% Cream (140 g) TOP SCH ×4 (07:05→16:16)
[2017-04-15 08:48] VITALS: RESP 20
[2017-04-15] MEDS: Multivitamin Vitamin B Complex (Nephro-Vite) Tab PO SCH (09:30)
[2017-04-15] MEDS: Promethazine/Cod 6.25mg-10mg/5ml Syr UD PO PRN ×2 (09:51→20:25)
[2017-04-15] MEDS: Albuterol-Ipratrop 3 mg / 0.5 (3 ml) UD INH PRN (09:54)
--- NOTE | 2017-04-15 11:07 | CP.PCM.PN ---
Subjective - Date & Time of Evaluation Date of Evaluation: 04/15/17 Time of Evaluation: 11:05 - Subjective Subjective: seen and examined no acute events Objective - Vital Signs/Intake and Output Vital Signs (last 24 hours): Temp Pulse Resp BP Pulse Ox 97.7 F 103 H 20 117/79 97 04/15/17 08:47 04/15/17 09:29 04/15/17 08:47 04/15/17 09:29 04/15/17 08:47 - Medications Medications: Current Medications Albuterol/Ipratropium (Duoneb 3 Mg/0.5 Mg (3 Ml) Ud) 3 ml INH RQ6 PRN PRN Reason: Shortness of Breath Last Admin: 04/15/17 09:54 Dose: 3 ml Amiodarone HCl (Cordarone) 100 mg PO DAILY [facility] Last Admin: 04/15/17 09:30 Dose: 100 mg Amlodipine Besylate (Norvasc) 5 mg PO DAILY [facility] Last Admin: 04/15/17 09:30 Dose: 5 mg Aspirin (Ecotrin) 81 mg PO DAILY [facility] Last Admin: 04/15/17 09:30 Dose: 81 mg Epoetin Giovanny (Procrit) 4,000 unit SC TTS [facility] Last Admin: 04/14/17 14:44 Dose: 4,000 unit Heparin Sodium (Porcine) (Heparin) 5,000 units SC Q12 [facility] PRN Reason: Protocol Last Admin: 04/15/17 09:33 Dose: 5,000 units Vancomycin HCl 500 mg/ Sodium (Chloride) 100 mls @ 100 mls/hr IVPB TTS [facility] Last Admin: 04/14/17 09:10 Dose: 100 mls/hr Piperacillin Sod/Tazobactam (Sod 2.25 gm/ Sodium Chloride) 100 mls @ 100 mls/ hr IVPB Q8H [facility] Last Admin: 04/15/17 04:39 Dose: 100 mls/hr Lactic Acid (Lac-Hydrin 12% Cream (140 G)) 1 ea TOP QID [facility] Last Admin: 04/15/17 09:34 Dose: 1 applic Losartan Potassium (Cozaar) 50 mg PO DAILY [facility] Last Admin: 04/15/17 09:29 Dose: 50 mg Promethazine HCl/Codeine (Phenergan/Codeine Oral Syrup) 5 ml PO Q6 PRN PRN Reason: Cough Last Admin: 04/15/17 09:51 Dose: 5 ml Sevelamer HCl (Renagel) 2,400 mg PO TID [facility] Last Admin: 04/15/17 09:28 Dose: 2,400 mg Tramadol HCl (Ultram) 50 mg PO Q6 PRN PRN Reason: Pain, moderate (4-7) Last Admin: 04/15/17 09:27 Dose: 50 mg Vitamin B Complex/Vit C/Folic Acid (Nephro-Jacqueline) 1 tab PO DAILY [facility] Last Admin: 04/15/17 09:30 Dose: 1 tab - Labs Labs: 04/14/17 12:27 04/14/17 12:27 - Constitutional Appears: Non-toxic - Head Exam Head Exam: ATRAUMATIC - Eye Exam Eye Exam: Normal appearance - ENT Exam ENT Exam: Normal Exam - Neck Exam Neck Exam: Normal Inspection - Respiratory Exam Additional comments: dec bs at bases - Cardiovascular Exam Cardiovascular Exam: +S1, +S2 - GI/Abdominal Exam GI & Abdominal Exam: Normal Bowel Sounds - Extremities Exam Additional comments: no edema - Neurological Exam Neurological Exam: Alert, Oriented x3 - Psychiatric Exam Psychiatric exam: Normal Affect - Skin Skin Exam: Normal Color Assessment and Plan - Assessment and Plan (Free Text) Assessment: ESRD / Tachycardia/ Pna/ Anemia plan: HD tomorrow f/u cardiology will hold norvasc given mildly depressed bp abx per primary team hgb stable
--- NOTE | 2017-04-15 16:09 | CP.PCM.PN ---
Subjective - Date & Time of Evaluation Date of Evaluation: 04/15/17 Time of Evaluation: 11:00 - Subjective Subjective: F/U PNA. Pt c/o of cervical, L-S, R hip, R thigh pain, no SOB, no chest congestion, occasional cough at times productive. Objective - Vital Signs/Intake and Output Vital Signs (last 24 hours): Temp Pulse Resp BP Pulse Ox 97.7 F 103 H 20 117/79 97 04/15/17 08:47 04/15/17 09:29 04/15/17 08:47 04/15/17 09:29 04/15/17 08:47 - Medications Medications: Current Medications Albuterol/Ipratropium (Duoneb 3 Mg/0.5 Mg (3 Ml) Ud) 3 ml INH RQ6 PRN PRN Reason: Shortness of Breath Last Admin: 04/15/17 09:54 Dose: 3 ml Amiodarone HCl (Cordarone) 100 mg PO DAILY [facility] Last Admin: 04/15/17 09:30 Dose: 100 mg Aspirin (Ecotrin) 81 mg PO DAILY [facility] Last Admin: 04/15/17 09:30 Dose: 81 mg Epoetin Giovanny (Procrit) 4,000 unit SC TTS [facility] Last Admin: 04/14/17 14:44 Dose: 4,000 unit Heparin Sodium (Porcine) (Heparin) 5,000 units SC Q12 [facility] PRN Reason: Protocol Last Admin: 04/15/17 09:33 Dose: 5,000 units Vancomycin HCl 500 mg/ Sodium (Chloride) 100 mls @ 100 mls/hr IVPB TTS [facility] Last Admin: 04/14/17 09:10 Dose: 100 mls/hr Piperacillin Sod/Tazobactam (Sod 2.25 gm/ Sodium Chloride) 100 mls @ 100 mls/ hr IVPB Q8H [facility] Last Admin: 04/15/17 13:06 Dose: 100 mls/hr Lactic Acid (Lac-Hydrin 12% Cream (140 G)) 1 ea TOP QID [facility] Last Admin: 04/15/17 13:07 Dose: 1 applic Losartan Potassium (Cozaar) 50 mg PO DAILY [facility] Last Admin: 04/15/17 09:29 Dose: 50 mg Promethazine HCl/Codeine (Phenergan/Codeine Oral Syrup) 5 ml PO Q6 PRN PRN Reason: Cough Last Admin: 04/15/17 09:51 Dose: 5 ml Sevelamer HCl (Renagel) 2,400 mg PO TID [facility] Last Admin: 04/15/17 13:05 Dose: 2,400 mg Tramadol HCl (Ultram) 50 mg PO Q6 PRN PRN Reason: Pain, moderate (4-7) Last Admin: 04/15/17 09:27 Dose: 50 mg Vitamin B Complex/Vit C/Folic Acid (Nephro-Jacqueline) 1 tab PO DAILY [facility] Last Admin: 04/15/17 09:30 Dose: 1 tab - Labs Labs: 04/14/17 12:27 04/14/17 12:27 - Constitutional Appears: No Acute Distress - Head Exam Head Exam: NORMAL INSPECTION - Eye Exam Eye Exam: PERRL - ENT Exam ENT Exam: Normal Exam - Neck Exam Neck Exam: Tenderness - Respiratory Exam Respiratory Exam: Decreased Breath Sounds (at bases), Rhonchi (scattered) - Cardiovascular Exam Cardiovascular Exam: Irregular Rhythm, Murmur (systolic 1/6 LSB) - GI/Abdominal Exam GI & Abdominal Exam: Soft, Normal Bowel Sounds - Extremities Exam Additional comments: Lower extremities dressing in place. mild edema. - Back Exam Back Exam: tenderness (L-S) - Neurological Exam Neurological Exam: Alert, CN II-XII Intact - Psychiatric Exam Psychiatric exam: Normal Mood - Skin Skin Exam: Warm Assessment and Plan (1) Pneumonia Status: Acute (2) Anemia due to chronic kidney disease Status: Chronic (3) Pulmonary nodule, right Status: Chronic (4) ESRD needing dialysis Status: Chronic (5) CHF (congestive heart failure) Status: Chronic (6) Hypertension Status: Chronic (7) Weakness generalized Status: Deleted (8) Xerosis of skin Status: Chronic - Assessment and Plan (Free Text) Plan: Pt was seen by Cardiology for episode of tachycardia yesterday, ID recommended to continue with Vanco, Zosyn for 2 more days. To be transferred to TCU for complexion of IV abx.
[2017-04-15 16:50] VITALS: BP 104/67; PULSE 102; TEMP 97.6; O2SAT 98
--- NOTE | 2017-04-28 12:42 | CP.PCM.DIS ---
Provider - Provider Date of Admission: 04/09/17 18:30 Attending physician: Rio Hager MD Consults: Caridology, ID, Nephrology, Neuro Surgery, Podiatry. Time Spent in preparation of Discharge (in minutes): 25 Diagnosis - Discharge Diagnosis (1) Pneumonia Status: Acute (2) Anemia due to chronic kidney disease Status: Chronic Priority: High (3) Pulmonary nodule, right Status: Chronic Priority: High (4) ESRD needing dialysis Status: Chronic Priority: High (5) CHF (congestive heart failure) Status: Chronic Priority: High (6) Hypertension Status: Chronic Priority: Medium (7) Weakness generalized Status: Deleted Priority: Medium (8) Xerosis of skin Status: Chronic Priority: High Hospital Course - Lab Results Lab Results: Most Recent Lab Values WBC 3.3 K/uL (4.8-10.8) L 04/14/17 12:27 RBC 3.39 Mil/uL (4.40-5.90) L 04/14/17 12:27 Hgb 11.1 g/dL (12.0-18.0) L D 04/14/17 12:27 Hct 34.8 % (35.0-51.0) L 04/14/17 12:27 MCV 102.6 fl (80.0-94.0) H D 04/14/17 12:27 MCH 32.9 pg (27.0-31.0) H 04/14/17 12:27 MCHC 32.1 g/dL (33.0-37.0) L 04/14/17 12:27 RDW 17.2 % (11.5-14.5) H 04/14/17 12:27 Plt Count 139 K/uL (130-400) 04/14/17 12:27 MPV 7.8 fl (7.2-11.7) 04/08/17 15:55 Neut % (Auto) 74.5 % (50.0-75.0) 04/08/17 15:55 Lymph % (Auto) 8.7 % (20.0-40.0) L 04/08/17 15:55 [place] % (Auto) 10.5 % (0.0-10.0) H 04/08/17 15:55 Eos % (Auto) 5.4 % (0.0-4.0) H 04/08/17 15:55 Baso % (Auto) 0.9 % (0.0-2.0) 04/08/17 15:55 Neut # 3.3 K/uL (1.8-7.0) 04/08/17 15:55 Lymph # 0.4 K/uL (1.0-4.3) L 04/08/17 15:55 [place] # 0.5 K/uL (0.0-0.8) 04/08/17 15:55 Eos # 0.2 K/uL (0.0-0.7) 04/08/17 15:55 Baso # 0.0 K/uL (0.0-0.2) 04/08/17 15:55 Neutrophils % (Manual) 72 % (42-75) 04/08/17 15:55 Lymphocytes % (Manual) 12 % (20-50) L 04/08/17 15:55 Monocytes % (Manual) 10 % (0-10) 04/08/17 15:55 Eosinophils % (Manual) 5 % (0-7) 04/08/17 15:55 Basophils % (Manual) 1 % (0-2) 04/08/17 15:55 Toxic Granulation Present 04/08/17 15:55 Platelet Estimate Normal (NORMAL) 04/08/17 15:55 Large Platelets Present 04/08/17 15:55 Anisocytosis (manual) Moderate 04/08/17 15:55 Macrocytosis (manual) Slight 04/08/17 15:55 pO2 18 mm/Hg (30-55) L 04/08/17 15:46 VBG pH 7.31 (7.32-7.43) L 04/08/17 15:46 VBG pCO2 66 mmHg (40-60) H* 04/08/17 15:46 VBG HCO3 26.0 mmol/L 04/08/17 15:46 VBG Total CO2 35.2 mmol/L (22-28) H 04/08/17 15:46 VBG O2 Sat (Calc) 25.9 % (40-65) L 04/08/17 15:46 VBG Base Excess 4.4 mmol/L (0.0-2.0) H 04/08/17 15:46 VBG Potassium 3.9 mmol/L (3.6-5.2) 04/08/17 15:46 Sodium 137.0 mmol/L (132-148) 04/08/17 15:46 Chloride 97.0 mmol/L (98-107) L 04/08/17 15:46 Glucose 69 mg/dL (75-110) L 04/08/17 15:46 Lactate 1.2 mmol/L (0.7-2.1) 04/08/17 15:46 FiO2 21.0 % 04/08/17 15:46 Blood Gas Comments Vbg 04/08/17 15:46 Crit Value Called To Katelin villar r.n. 04/08/17 15:46 Crit Value Called By Shante 04/08/17 15:46 Crit Value Read Back Y 04/08/17 15:46 Blood Gas Notified Time 1601 04/08/17 15:46 Sodium 141 mmol/l (132-148) 04/14/17 12:27 Potassium 4.2 MMOL/L (3.6-5.0) 04/14/17 12:27 Chloride 103 mmol/L (98-107) 04/14/17 12:27 Carbon Dioxide 26 mmol/L (22-30) 04/14/17 12:27 Anion Gap 17 (10-20) 04/14/17 12:27 BUN 18 mg/dl (9-20) 04/14/17 12:27 Creatinine 4.8 mg/dL (0.8-1.5) H 04/14/17 12:27 Est GFR ( Amer) 15 04/14/17 12:27 Est GFR (Non-Af Amer) 12 04/14/17 12:27 POC Glucose (mg/dL) 118 mg/dL (65-110) H 04/14/17 15:44 Random Glucose 69 mg/dL (75-110) L 04/14/17 12:27 Calcium 9.2 mg/dL (8.4-10.2) 04/14/17 12:27 Phosphorus 5.6 mg/dl (2.5-4.5) H 04/09/17 13:00 Total Bilirubin 0.7 mg/dl (0.2-1.3) 04/14/17 12:27 AST 40 U/L (17-59) 04/14/17 12:27 ALT 18 U/L (21-72) L 04/14/17 12:27 Alkaline Phosphatase 111 U/L (38-126) 04/14/17 12:27 Troponin I 0.0350 ng/mL (0.00-0.120) 04/08/17 15:55 NT-Pro-B Natriuret Pep 48495 pg/ml (0-900) H 04/08/17 15:55 Total Protein 8.4 G/DL (6.3-8.2) H 04/14/17 12:27 Albumin 3.8 g/dL (3.5-5.0) 04/14/17 12:27 Globulin 4.6 gm/dL (2.2-3.9) H 04/14/17 12:27 Albumin/Globulin Ratio 0.8 (1.0-2.1) L 04/14/17 12:27 Triglycerides 75 mg/DL (0-149) 04/09/17 06:00 Cholesterol 119 mg/dL (0-199) 04/09/17 06:00 LDL Cholesterol Direct 36 mg/dL (0-129) 04/09/17 06:00 HDL Cholesterol 34 MG/DL (30-70) 04/09/17 06:00 Thyroxine (T4) 5.78 ug/dl (5.5-11.0) 04/09/17 06:00 TSH 3rd Generation 2.45 mIU/ML (0.46-4.68) 04/09/17 06:00 Venous Blood Potassium 3.9 mmol/L (3.6-5.2) 04/08/17 15:46 Hep Bs Antigen Negative (NEGATIVE) 04/09/17 22:15 Hep Bs Antibody Negative (NEGATIVE) 04/09/17 22:15 Hep B Core IgM Ab Negative (NEGATIVE) 04/09/17 22:15 - Date & Time of H&P Date of H&P: 04/09/17 Time of H&P: 14:30 Discharge Exam - Head Exam Head Exam: NORMAL INSPECTION Discharge Plan - Follow Up Plan Condition: FAIR Disposition: TRANSF TO SNF Instructions: Pneumonia (DC)
== END 2017-04-15 22:25 | DRG 291 ==
LOC: H.ER 14:38 → H.ERHOLD 17:22 → H.TEL 19:05 → OBSVTOIN 04-09 18:30 → H.MEDSURG1 04-13 15:33
PROVIDERS: ADMIT Internal Medicine Pulmonary Disease; ATTEND Internal Medicine Pulmonary Disease
PROC: 5A1D60Z (ICD-10-PCS; principal; 2017-04-09)
DX: I13.2 Hypertensive heart and chronic kidney disease with heart failure and with stage 5 chronic kidney disease, or end stage renal disease (principal); J18.9 Pneumonia, unspecified organism; I27.2 Other secondary pulmonary hypertension; N18.6 End stage renal disease; N25.81 Secondary hyperparathyroidism of renal origin; I48.1 Persistent atrial fibrillation; I48.2 Chronic atrial fibrillation; L97.929 Non-pressure chronic ulcer of unspecified part of left lower leg with unspecified severity; I50.21 Acute systolic (congestive) heart failure; D63.1 Anemia in chronic kidney disease; E83.39 Other disorders of phosphorus metabolism; I07.1 Rheumatic tricuspid insufficiency; L85.3 Xerosis cutis; J40 Bronchitis, not specified as acute or chronic; Z95.0 Presence of cardiac pacemaker; Z99.2 Dependence on renal dialysis; R23.8 Other skin changes; R91.1 Solitary pulmonary nodule; G89.29 Other chronic pain; M54.41 Lumbago with sciatica, right side

== ENCOUNTER 2017-04-15 15:24 | Inpatient (IN) | payer OTHER, MEDICAID ==
[2017-04-15 23:26] VITALS: BMI 23.6
[2017-04-16] MEDS ORDERED: Promethazine/Cod 6.25mg-10mg/5ml Syr UD PO PRN (00:42)
[2017-04-16] MEDS ORDERED: Albuterol-Ipratrop 3 mg / 0.5 (3 ml) UD INH PRN (00:42)
[2017-04-16] MEDS ORDERED: Patient's Own Med (Piperacill/Tazo 2.25gm In Dex [Zosyn 2.25 Gm Iv Premix] 2.25 GM) IVPB SCH (01:00)
[2017-04-16 04:23] VITALS: RESP 20
[2017-04-16] MEDS: TAZOBACTAM IVPB SCH ×2 (05:20→13:06)
[2017-04-16] MEDS: SODIUM CHLORIDE IVPB SCH ×2 (05:20→13:06)
[2017-04-16] MEDS: PIPERACILLIN IVPB SCH ×2 (05:20→13:06)
[2017-04-16] MEDS ORDERED: Epoetin Alfa 4000 UNIT/ML Inj SC SCH (09:00)
[2017-04-16] MEDS ORDERED: Multivitamin Vitamin B Complex (Nephro-Vite) Tab PO SCH (09:00)
[2017-04-16] MEDS: Ammonium Lactate 12% Cream (140 g) TOP SCH ×2 (09:58→13:04)
--- NOTE | 2017-04-16 15:47 | CP.PCM.HP ---
History of Present Illness - History of Present Illness History of Present Illness: Transfer to TCU to continue ATB treatment for PNA , Patient with occasional cough with scanty yellowish secretion, no SOB , no Chest congestion, also complaining of L-S pain radiated to LLE, and Cervical pain with weakness R L U/E Present on Admission - Present on Admission Any Indicators Present on Admission: No Review of Systems - Constitutional Constitutional: Weakness - EENT Eyes: Other Ears: Other Nose/Mouth/Throat: Other - Cardiovascular Cardiovascular: Irregular Heart Rhythm, Leg Edema, Palpitations, Rapid Heart Rate - Respiratory Respiratory: Cough, Chest Congestion - Gastrointestinal Gastrointestinal: Other - Genitourinary Genitourinary: Other - Musculoskeletal Musculoskeletal: Arthralgias, Muscle Weakness, Radiating Pain into Limb - Integumentary Integumentary: Other - Neurological Neurological: Abnormal Gait, Radicular Pain, Weakness - Psychiatric Psychiatric: Anxiety - Endocrine Endocrine: Other - Hematologic/Lymphatic Hematologic: Other Past Patient History - Infectious Disease Hx of Infectious Diseases: None - Past Medical History & Family History Past Medical History?: Yes - Past Social History Smoking Status: Former Smoker - CARDIAC Hx Cardiac Disorders: Yes Hx Atrial Fibrillation: Yes Hx Cardia Arrhythmia: Yes Hx Congestive Heart Failure: Yes Hx Hypertension: Yes Hx Pacemaker: Yes Hx Peripheral Edema: Yes - PULMONARY Hx Respiratory Disorders: Yes Hx Pneumonia: Yes (2006) Other/Comment: Pulmonary Nodule. - NEUROLOGICAL Hx Neurological Disorder: Yes Hx Syncope: Yes Other/Comment: COMATOSE 1 MONTH 2007 DUE TO RENAL FAILURE - HEENT Hx HEENT Problems: No - RENAL Hx Chronic Kidney Disease: Yes Hx Dialysis: Yes Type of Dialysis Access: av shunt Date of Last Dialysis Treatment: 04/14/17 Hx Kidney Stones: No - ENDOCRINE/METABOLIC Hx Endocrine Disorders: No - HEMATOLOGICAL/ONCOLOGICAL Hx Blood Disorders: Yes Hx AIDS: No Hx Anemia: Yes Hx Human Immunodeficiency Virus (HIV): No - INTEGUMENTARY Hx Dermatological Problems: Yes Other/Comment: CHRONIC PRURITUS - MUSCULOSKELETAL/RHEUMATOLOGICAL Hx Falls: No - GASTROINTESTINAL Hx Gastrointestinal Disorders: Yes Other/Comment: ABD HERNIA HISTORY FEEDING TUBE INSERTION AND REMOVAL - GENITOURINARY/GYNECOLOGICAL Hx Genitourinary Disorders: No - PSYCHIATRIC Hx Psychophysiologic Disorder: No Hx Substance Use: No - SURGICAL HISTORY Hx Surgeries: Yes Hx Arteriovenous Shunt: Yes Hx Tonsillectomy: Yes - ANESTHESIA Hx Anesthesia: Yes Hx Anesthesia Reactions: No Hx Malignant Hyperthermia: No Meds Allergies/Adverse Reactions: Allergies Allergy/AdvReac Type Severity Reaction Status Date / Time venice inhibitors Allergy Mild ANAPHYLAXIS Uncoded 04/16/17 17:22 Physical Exam - Constitutional Appears: Chronically Ill - Head Exam Head Exam: NORMAL INSPECTION - Eye Exam Eye Exam: PERRL - ENT Exam ENT Exam: Normal Oropharynx - Neck Exam Neck exam: Positive for: Tenderness - Respiratory Exam Respiratory Exam: Decreased Breath Sounds (at bases) - Cardiovascular Exam Cardiovascular Exam: Irregular Rhythm - GI/Abdominal Exam GI & Abdominal Exam: Normal Bowel Sounds, Soft - Extremities Exam Extremities exam: Positive for: pedal edema (trace leg edema) Additional comments: L U/E arm AV shunt with bruit and thrill - Back Exam Back exam: tenderness (radiated to RLE) - Neurological Exam Neurological exam: Alert, Motor Sensory Deficit (weakness U/E , RLE), Oriented x3 - Skin Skin Exam: Warm Results - Vital Signs Recent Vital Signs: Last Vital Signs Temp 98.0 F 04/16/17 08:28 Pulse 90 04/16/17 14:32 Resp 20 04/16/17 08:28 BP 100/57 L 04/16/17 14:32 Pulse Ox 98 04/16/17 14:32 Assessment & Plan (1) Pneumonia Status: Acute (2) Afib Status: Chronic (3) Anemia due to chronic kidney disease Status: Chronic Priority: High (4) CKD (chronic kidney disease) stage V requiring chronic dialysis Status: Chronic (5) Lumbago with sciatica, right side Status: Acute (6) Cervical myelopathy Status: Chronic - Assessment and Plan (Free Text) Plan: Continue Vanco ,Zosyn , Percocet and rest of treatment , Neurosurgical consult - Date & Time Date: 04/16/17 Time: 10:15
--- NOTE | 2017-04-16 15:58 | CP.PCM.CON ---
History of Present Illness - History of Present Illness History of Present Illness: SPINE Pt seen and examined. Xray studies reviewed. Prob diskitis L4-5. Rec IR for CT guided aspiration. Bigger problem is prob myelopathy secondary past neck injury with resultant severe spinal stenosis. Pt would need and 3 level corpectomy to decompress the cord with ant strut grafting and fusion, followed by posterior decompression/fixation/fusion to stabilize the spine. Would need clearance from all specialtied involved with his care. Explained he might not be able to be extubated, he could be paralyzed through trying to decompress his cord, etc. He understands but states he is getting progressively weaker in his arms and has difficulty w gait and balance and "I don't want to live like this." Will follow. Past Patient History - Infectious Disease Hx of Infectious Diseases: None - Past Medical History & Family History Past Medical History?: Yes - Past Social History Smoking Status: Former Smoker - CARDIAC Hx Cardiac Disorders: Yes Hx Atrial Fibrillation: Yes Hx Cardia Arrhythmia: Yes Hx Congestive Heart Failure: Yes Hx Hypertension: Yes Hx Pacemaker: Yes Hx Peripheral Edema: Yes - PULMONARY Hx Respiratory Disorders: Yes Hx Pneumonia: Yes (2006) Other/Comment: Pulmonaru Nodule. - NEUROLOGICAL Hx Neurological Disorder: Yes Hx Syncope: Yes Other/Comment: COMATOSE 1 MONTH 2007 DUE TO RENAL FAILURE - HEENT Hx HEENT Problems: No - RENAL Hx Chronic Kidney Disease: Yes Hx Dialysis: Yes Type of Dialysis Access: av shunt Date of Last Dialysis Treatment: 04/14/17 Hx Kidney Stones: No - ENDOCRINE/METABOLIC Hx Endocrine Disorders: No - HEMATOLOGICAL/ONCOLOGICAL Hx Blood Disorders: Yes Hx AIDS: No Hx Anemia: Yes Hx Human Immunodeficiency Virus (HIV): No - INTEGUMENTARY Hx Dermatological Problems: Yes Other/Comment: CHRONIC PRURITUS - MUSCULOSKELETAL/RHEUMATOLOGICAL Hx Falls: No - GASTROINTESTINAL Hx Gastrointestinal Disorders: Yes Other/Comment: ABD HERNIA HISTORY FEEDING TUBE INSERTION AND REMOVAL - GENITOURINARY/GYNECOLOGICAL Hx Genitourinary Disorders: No - PSYCHIATRIC Hx Psychophysiologic Disorder: No Hx Substance Use: No - SURGICAL HISTORY Hx Surgeries: Yes Hx Tonsillectomy: Yes - ANESTHESIA Hx Anesthesia: Yes Hx Anesthesia Reactions: No Hx Malignant Hyperthermia: No Meds Allergies/Adverse Reactions: Allergies Allergy/AdvReac Type Severity Reaction Status Date / Time venice inhibitors Allergy Mild ANAPHYLAXIS Uncoded 11/29/16 20:14 - Medications Medications: Current Medications Albuterol/Ipratropium (Duoneb 3 Mg/0.5 Mg (3 Ml) Ud) 3 ml INH RQ6 PRN PRN Reason: Shortness of Breath Amiodarone HCl (Cordarone) 100 mg PO DAILY [facility] Last Admin: 04/16/17 09:57 Dose: 100 mg Amlodipine Besylate (Norvasc) 5 mg PO DAILY [facility] Last Admin: 04/16/17 10:00 Dose: 5 mg Aspirin (Ecotrin) 81 mg PO DAILY [facility] Last Admin: 04/16/17 09:58 Dose: 81 mg Epoetin Giovanny (Procrit) 4,000 unit SC TTS [facility] Last Admin: 04/16/17 13:03 Dose: 4,000 unit Heparin Sodium (Porcine) (Heparin) 5,000 units SC Q12 BETTYE PRN Reason: Protocol Last Admin: 04/16/17 09:58 Dose: 5,000 units Piperacillin Sod/Tazobactam (Sod 2.25 gm/ Sodium Chloride) 100 mls @ 100 mls/ hr IVPB Q8H [facility] Last Admin: 04/16/17 13:06 Dose: 100 mls/hr Vancomycin HCl 500 mg/ Sodium (Chloride) 100 mls @ 100 mls/hr IVPB TTS@2100 [facility] Lactic Acid (Lac-Hydrin 12% Cream (140 G)) 1 ea TOP QID [facility] Last Admin: 04/16/17 13:04 Dose: 1 applic Losartan Potassium (Cozaar) 50 mg PO DAILY [facility] Last Admin: 04/16/17 09:57 Dose: 50 mg Promethazine HCl/Codeine (Phenergan/Codeine Oral Syrup) 5 ml PO Q6 PRN PRN Reason: Cough Sevelamer HCl (Renagel) 2,400 mg PO TID [facility] Last Admin: 04/16/17 13:04 Dose: 2,400 mg Tramadol HCl (Ultram) 50 mg PO Q6 PRN PRN Reason: Pain, moderate (4-7) Last Admin: 04/16/17 11:17 Dose: 50 mg Vitamin B Complex/Vit C/Folic Acid (Nephro-Jacqueline) 1 tab PO DAILY [facility] Last Admin: 04/16/17 09:58 Dose: 1 tab Results - Vital Signs Recent Vital Signs: Last Vital Signs Temp 98.0 F 04/16/17 08:28 Pulse 90 04/16/17 14:32 Resp 20 04/16/17 08:28 BP 100/57 L 04/16/17 14:32 Pulse Ox 98 04/16/17 14:32
--- NOTE | 2017-04-16 17:30 | CP.PCM.PN ---
Subjective - Date & Time of Evaluation Date of Evaluation: 04/16/17 Time of Evaluation: 17:28 - Subjective Subjective: Follow up Nephrology Consultation Note Assessment: Stable Diabetic chronic Kidney Disease (E11.22) Hypertensive Chronic Kidney Disease (I12.0) End stage renal disease (N18.6) dependence on hemodialysis (Z99.2) (TTS) via AVF Anemia (D64.9), Hyperphosphatemia (E83.39), Secondary Hyperparathyroidism (E21.1 ), HTN (I12.0) recent Pneumonia Plan: Will plan for HD today as ordered. Continue with Nephrovite 1 tab/day. PRBC as needed for anemia. on JOSEE as epogen 4000 unit with HD last Hb 11 Continue with phos binders last phos level 5.6 BP control with meds as ordered. Patient not on RAAS victorino as BP on low side Glycemic control, Dialysis consistent diet Further work up/management as per primary team Dose meds/antibiotics (if needed) for ESRD status. Avoid fleets enema/magnesium based laxatives. met with RN on floor, pt's transport wasn't there yet to pick him up to go to [facility]. Called [facility] and was informed that pt is not an active pt there. he used to get HD in past but last HD in February [facility] there too and pt was said to be d/c from there to go back to [facility]. At present, pt is not assigned to any outpt HD unit. as per floor staff, pt can't get HD from TCU hence will need to go to ER and get HD thereafter SW consult for outpt HD arrangements. Thanks for allowing me to participate in care of your patient. Will follow patient with you. Please call if any Qs Dr Piter Betancur Office: [phone] Subjective: Noted events overnight. Patients feels okay except back pain. Denies chest pain, palpitation. feels better with shortness of breath, improved leg swelling. No urinary complaints Physical Examination: General Appearance: Comfortable, in no acute respiratory distress, co- operative. Vitals reviewed and noted as below Lungs: Normal respiratory rate/effort. Breath sounds bilateral equal and clear Heart: Normal rate. s1s2 normal. No rub or gallop. Extremities: 1-2+edema. Neurological: Patient is alert, awake and oriented to person, place and time. No focal deficit. Strength bilateral appropriate and equal Skin: Warm and dry. Normal turgor. No rash. Palpitation: Normal elasticity for age Abdomen: Abdomen is soft. Bowel sounds +. There is no abdominal tenderness, no guarding/rigidity or organomegaly : kidney or bladder not palpable Access: AVF Labs/imaging reviewed. Past medical history, past surgical history, family history, social history, allergy reviewed Objective - Vital Signs/Intake and Output Vital Signs (last 24 hours): Temp Pulse Resp BP Pulse Ox 98.0 F 90 20 100/57 L 98 04/16/17 08:28 04/16/17 14:32 04/16/17 08:28 04/16/17 14:32 04/16/17 14:32 - Medications Medications: Current Medications Albuterol/Ipratropium (Duoneb 3 Mg/0.5 Mg (3 Ml) Ud) 3 ml INH RQ6 PRN PRN Reason: Shortness of Breath Amiodarone HCl (Cordarone) 100 mg PO DAILY [facility] Last Admin: 04/16/17 09:57 Dose: 100 mg Aspirin (Ecotrin) 81 mg PO DAILY [facility] Last Admin: 04/16/17 09:58 Dose: 81 mg Epoetin Giovanny (Procrit) 4,000 unit SC TTS [facility] Last Admin: 04/16/17 13:03 Dose: 4,000 unit Heparin Sodium (Porcine) (Heparin) 5,000 units SC Q12 BETTYE PRN Reason: Protocol Last Admin: 04/16/17 09:58 Dose: 5,000 units Piperacillin Sod/Tazobactam (Sod 2.25 gm/ Sodium Chloride) 100 mls @ 100 mls/ hr IVPB Q8H [facility] Last Admin: 04/16/17 13:06 Dose: 100 mls/hr Vancomycin HCl 500 mg/ Sodium (Chloride) 100 mls @ 100 mls/hr IVPB TTS@2100 [facility] Lactic Acid (Lac-Hydrin 12% Cream (140 G)) 1 ea TOP QID [facility] Last Admin: 04/16/17 13:04 Dose: 1 applic Promethazine HCl/Codeine (Phenergan/Codeine Oral Syrup) 5 ml PO Q6 PRN PRN Reason: Cough Sevelamer HCl (Renagel) 2,400 mg PO TID [facility] Last Admin: 04/16/17 13:04 Dose: 2,400 mg Tramadol HCl (Ultram) 50 mg PO Q6 PRN PRN Reason: Pain, moderate (4-7) Last Admin: 04/16/17 11:17 Dose: 50 mg Vitamin B Complex/Vit C/Folic Acid (Nephro-Jacqueline) 1 tab PO DAILY [facility] Last Admin: 04/16/17 09:58 Dose: 1 tab
[2017-04-16 17:31] VITALS: BP 100/56; PULSE 87; TEMP 98; O2SAT 97
--- NOTE | 2017-04-19 06:45 | CON ---
DATE: 04/16/2017 REASON FOR CONSULTATION: Low back pain. HISTORY OF PRESENT ILLNESS: The patient is a 66-year-old gentleman who states he had a fall in 04/2014. He states it was a month or several months later that he was told that he "had broken 3 bones in his neck." He states that over the years, he has had progressive weakness of his upper extremities and difficulty ambulating. He is complicated by multiple medical problems, including end-stage renal disease for which he has been on hemodialysis since 2008 along with anemia secondary to the renal disease. 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 He was actually comatose for a month secondary to renal failure back in 2007. He states his neck has gotten more bent over and he is having just difficulty functioning with everything. He states his low back has been bothering him of late as well. He denies any fevers or chills and does not feel ill otherwise than just his medical problems dictate. PAST MEDICAL HISTORY: Significant as above. MEDICATIONS: Listed on the chart. ALLERGIES: HE REPORTEDLY IS ALLERGIC TO WOODY INHIBITORS. PAST SURGICAL HISTORY: Significant for tonsillectomy, dialysis access portal in his left upper extremity as well as a pacemaker which is on his right side. PHYSICAL EXAMINATION: NECK: He has some motion in his neck with maybe 20 to 30 degrees rotation to each side. EXTREMITIES AND BACK: He moves his upper extremities. He has some generalized weakness throughout. No Nelson's noted. Decent pc analyst strength. Distal pulses are intact. No obvious tenderness in the lower back. His lower extremity exam seems to be intact as well. STUDIES: Reviewed and studies of lumbar spine appear to show a possible discitis/osteomyelitis at the 4-5 level. Compared to an x-ray done last year, I believe, that it just showed some narrowing at the 4-5 space. Study done in February and then recently this month show erosion into the vertebral bodies above and below the 4-5 disc space with a lot of irregularities. I do not appreciate much of a change between the February and March study. The bigger issue is that, looking back at his studies, the past CAT scans of his neck show a subluxation of C3 on C4 that has progressively gotten worse. The last study done was in November of this year, and it shows a grade IV spondylolisthesis at C3 on C4. A lot of collapse and irregularities of the bodies and below that down to about C7, which does not look too bad and the thoracic body look okay. As a resultant, severe spinal stenosis behind the slip at those levels. IMPRESSION: 1. Probable cervical myelopathy that has been progressive over the past several years. 2. Probable discitis/osteomyelitis of L4-L5. RECOMMENDATIONS: At this time will be to get a new CAT scan of his cervical spine as we cannot get an MRI, given the pacemaker. It would also recommend having interventional radiology attempt a CT-guided biopsy of the 4-5 space to see if bacterial etiology could be obtained. Of note, he has been on vancomycin recently for what sounds like pneumonia or some respiratory disorder. Obviously, that may complicate issues, but at this point, he is not systemically ill and certainly by far the more pressing issue is the severe cervical stenosis giving him most certainly his myelopathic symptoms. I explained to him that this would probably require at least a two-stage operation in terms of trying to decompress his cord from the front and then doing probable laminectomy and fixation and fusion from behind. The question would be whether we could begin to approach the neck around the C6 or so vertebral body and work our way upwards to decompress everything below the C3 body as we are already dealing with significant slippage, so that the C3 body is somewhat in front of C4. I do not know how mobile this is in terms of putting him in tongs once he is asleep to see if there is some mobility there in terms of trying to decompress everything from the front. I explained to him that given his lung condition, we may not be able to extubate him at the time after his surgery and certainly, given the severe pressure on his spinal cord, there would be issues with the possibility that he could get paralyzed just from us trying to decompress his cord to stop this myelopathic condition from worsening to the point where he cannot function with his arms or legs. He obviously is concerned with these type of risk factors, but states he does not want to go on living the way he is presently either. Therefore, we will go ahead and order the CAT scan and suggest the interventional radiology biopsy. I will review these films with my partners, and we will see the patient again once the new CAT scan has been done. Thank you for allowing me to participate in the care of your patient. Aguila Wilcox MD
--- NOTE | 2017-04-28 11:57 | CP.PCM.DIS ---
Provider - Provider Date of Admission: 04/15/17 23:26 Attending physician: Rio Hager MD Consults: Cardiology, ID, Nephrology, Neuro Surgery and Podiatry. Time Spent in preparation of Discharge (in minutes): 25 Diagnosis - Discharge Diagnosis (1) Pneumonia Status: Acute (2) Afib Status: Chronic (3) Anemia due to chronic kidney disease Status: Chronic Priority: High (4) CKD (chronic kidney disease) stage V requiring chronic dialysis Status: Chronic (5) Lumbago with sciatica, right side Status: Acute (6) Cervical myelopathy Status: Chronic Hospital Course - Date & Time of H&P Date of H&P: 04/16/17 Time of H&P: 10:15 Discharge Exam - Head Exam Head Exam: NORMAL INSPECTION Discharge Plan - Follow Up Plan Condition: GOOD Disposition: Trans to Other Acute Care Hosp Instructions: Chronic Kidney Disease (DC), Fall Prevention (DC), End Stage Kidney Disease (DC)
== END 2017-04-16 17:00 | disposition short-term general hospital (02) | DRG 194 ==
LOC: H.TCU 23:26
PROVIDERS: ADMIT Internal Medicine Pulmonary Disease; ATTEND Internal Medicine Pulmonary Disease
PROC: F07Z9FZ Gait Training/Functional Ambulation Treatment using Assistive, Adaptive, Supportive or Protective Equipment (ICD-10-PCS; principal; 2017-04-15)
DX: J18.9 Pneumonia, unspecified organism (principal); N18.5 Chronic kidney disease, stage 5; E11.22 Type 2 diabetes mellitus with diabetic chronic kidney disease; I50.9 Heart failure, unspecified; I48.91 Unspecified atrial fibrillation; I12.9 Hypertensive chronic kidney disease with stage 1 through stage 4 chronic kidney disease, or unspecified chronic kidney disease; D63.1 Anemia in chronic kidney disease; I44.30 Unspecified atrioventricular block; M48.00 Spinal stenosis, site unspecified; M54.41 Lumbago with sciatica, right side; Z99.2 Dependence on renal dialysis; Z87.01 Personal history of pneumonia (recurrent); Z87.891 Personal history of nicotine dependence; Z95.0 Presence of cardiac pacemaker

== ENCOUNTER 2017-04-16 17:19 | Inpatient (IN) | payer MEDICARE, MEDICAID ==
[2017-04-16 17:20] VITALS: BMI 30.5
--- NOTE | 2017-04-16 17:45 | ED PDOC ---
HPI: General Adult Time Seen by Provider: 04/16/17 17:30 Chief Complaint (Nursing): Medical Clearance Chief Complaint (Provider): Medical Clearance History Per: Patient History/Exam Limitations: no limitations Current Symptoms Are (Timing): Still Present Additional Complaint(s): 66 year old male transferred from TCU presents to ED due to dialysis not being done today and has a past medical history of chronic renal failure and HTN. Patient is due for dialysis today and notes that his last dialysis was x2 days ago. PCP: WAYNE Past Medical History Reviewed: Historical Data, Nursing Documentation, Vital Signs Vital Signs: Last Vital Signs Temp 97.6 F 04/16/17 17:22 Pulse 82 04/16/17 17:22 Resp 18 04/16/17 17:22 BP 125/65 04/16/17 17:22 Pulse Ox 95 04/16/17 17:48 - Medical History PMH: Anemia, Atrial Fibrillation, Cardia Arrhythmia, CHF, HTN, Peripheral Edema , Pneumonia (2006), End Stage Renal Disease (on dialysis MWF left arm shunt), Chronic Kidney Disease Denies: HIV, Kidney Stones - Surgical History Surgical History: Pacemaker, Tonsillectomy Denies: No Surg Hx - Family History Family History: States: Unknown Family Hx, CAD, Hypertension - Social History Current smoker - smoking cessation education provided: No Ex-Smoker (has not smoked in the last 12 months): Yes Alcohol: None Drugs: Denies - Immunization History Hx Tetanus Toxoid Vaccination: No Hx Influenza Vaccination: Yes Hx Pneumococcal Vaccination: Yes - Home Medications Home Medications: Ambulatory Orders Medication Instructions Recorded Amiodarone HCl 100 mg PO DAILY 02/21/17 Aspirin [Ecotrin] 81 mg PO DAILY 02/21/17 Losartan [Cozaar] 50 mg PO DAILY 02/21/17 Sevelamer Carbonate [Renvela] 2,400 mg PO TID 02/21/17 Vit B Cmplx 3/Folic AC/C/Biot 1 tab PO DAILY 02/21/17 [Amara-Jacqueline Rx Tablet] amLODIPine [Norvasc] 5 mg PO DAILY 02/21/17 Albuterol/Ipratropium [Duoneb 3 3 ml INH RQ6 PRN 04/15/17 mg/0.5 mg (3 ml) UD] Ammonium Lactate 12% [Lac-Hydrin 1 ea TOP QID 04/15/17 12% Cream (140 g)] Epoetin Giovanny [Procrit] 4,000 unit SC TTS ml 04/15/17 Heparin 5,000 units SC Q12 vial 04/15/17 Piperacill/Tazo 2.25gm in Dex 2.25 gm IVPB Q8 #6 bag 04/15/17 [Zosyn 2.25 Gm IV Premix] Promethazine/Codeine 5 ml PO Q6 PRN 04/15/17 [Phenergan/Codeine Oral Syrup] Vancomycin 500mg in NS 500 mg IVPB TTS #2 bag 04/15/17 traMADol [Ultram] 50 mg PO Q6 PRN #10 tab 04/15/17 - Allergies Allergies/Adverse Reactions: Allergies Allergy/AdvReac Type Severity Reaction Status Date / Time venice inhibitors Allergy Mild ANAPHYLAXIS Uncoded 04/16/17 17:22 Review of Systems ROS Statement: Except As Marked, All Systems Reviewed And Found Negative Cardiovascular: Negative for: Chest Pain Respiratory: Positive for: Shortness of Breath (mild) Physical Exam - Reviewed Nursing Documentation Reviewed: Yes Vital Signs Reviewed: Yes - Physical Exam Appears: Positive for: No Acute Distress Skin: Positive for: Normal Color Cardiovascular/Chest: Positive for: Regular Rate, Rhythm. Negative for: Murmur Respiratory: Positive for: Rhonchi (scattered). Negative for: Wheezing, Respiratory Distress Extremity: Positive for: Normal ROM. Negative for: Deformity Neurologic/Psych: Positive for: Alert, Oriented - ECG O2 Sat by Pulse Oximetry: 95 (RA) Pulse Ox Interpretation: Normal Medical Decision Making Medical Decision Makin Initial impression: dialysis patient Initial plan: * Labs Scribe Attestation: Documented by Emilia Grey acting as a scribe for Benito Gomez MD. Scribe Attestation: All medical record entries made by the Scribe were at my direction and personally dictated by me. I have reviewed the chart and agree that the record accurately reflects my personal performance of the history, physical exam, medical decision making, and the department course for this patient. I have also personally directed, reviewed, and agree with the discharge instructions and disposition. Disposition - Clinical Impression Clinical Impression: ESRD needing dialysis - Patient ED Disposition Is Patient to be Admitted: Yes - Disposition Disposition Time: 18:01 Condition: FAIR Forms: Joox (Maltese) - Pt Status Changed To: Hospital Disposition Of: Observation - POA Present On Arrival: None
[2017-04-16] MEDS ORDERED: Albuterol-Ipratrop 3 mg / 0.5 (3 ml) UD INH PRN (20:47)
[2017-04-16] MEDS ORDERED: Promethazine/Cod 6.25mg-10mg/5ml Syr UD PO PRN (20:47)
[2017-04-16] MEDS: Ammonium Lactate 12% Cream (140 g) TOP SCH (22:35)
--- NOTE | 2017-04-16 22:39 | CP.PCM.HP ---
Past Patient History - Infectious Disease Hx of Infectious Diseases: None - Past Medical History & Family History Past Medical History?: Yes - Past Social History Alcohol: None Drugs: Denies - CARDIAC Hx Atrial Fibrillation: Yes Hx Cardia Arrhythmia: Yes Hx Congestive Heart Failure: Yes Hx Hypertension: Yes Hx Pacemaker: Yes Hx Peripheral Edema: Yes - PULMONARY Hx Pneumonia: Yes (2006) - NEUROLOGICAL Hx Neurological Disorder: Yes Hx Syncope: Yes Other/Comment: COMATOSE 1 MONTH 2008 DUE TO RENAL FAILURE - HEENT Hx HEENT Problems: No - RENAL Hx Chronic Kidney Disease: Yes - ENDOCRINE/METABOLIC Hx Endocrine Disorders: No - HEMATOLOGICAL/ONCOLOGICAL Hx Anemia: Yes Hx Human Immunodeficiency Virus (HIV): No - INTEGUMENTARY Hx Dermatological Problems: Yes Other/Comment: CHRONIC PRURITUS - GASTROINTESTINAL Hx Gastrointestinal Disorders: Yes Other/Comment: ABD HERNIA HISTORY FEEDING TUBE INSERTION AND REMOVAL - GENITOURINARY/GYNECOLOGICAL Hx Genitourinary Disorders: No - PSYCHIATRIC Hx Psychophysiologic Disorder: No Hx Substance Use: No - SURGICAL HISTORY Hx Tonsillectomy: Yes - ANESTHESIA Hx Anesthesia: Yes Hx Anesthesia Reactions: No Hx Malignant Hyperthermia: No Meds Allergies/Adverse Reactions: Allergies Allergy/AdvReac Type Severity Reaction Status Date / Time venice inhibitors Allergy Mild ANAPHYLAXIS Uncoded 04/16/17 17:22 Results - Vital Signs Recent Vital Signs: Last Vital Signs Temp 97.6 F 04/16/17 18:55 Pulse 80 04/16/17 18:55 Resp 19 04/16/17 18:55 BP 137/88 04/16/17 18:55 Pulse Ox 94 L 04/16/17 18:55
[2017-04-17] MEDS ORDERED: Patient's Own Med (Piperacill/Tazo 2.25gm In Dex [Zosyn 2.25 Gm Iv Premix] 2.25 GM) IVPB SCH (01:00)
[2017-04-17] MEDS: TAZOBACTAM IVPB SCH ×3 (01:33→17:17)
[2017-04-17] MEDS: PIPERACILLIN IVPB SCH ×3 (01:33→17:17)
[2017-04-17] MEDS: SODIUM CHLORIDE IVPB SCH ×3 (01:33→17:17)
[2017-04-17] MEDS: Multivitamin Vitamin B Complex (Nephro-Vite) Tab PO SCH (09:54)
[2017-04-17] MEDS: Ammonium Lactate 12% Cream (140 g) TOP SCH ×4 (09:57→21:21)
--- NOTE | 2017-04-17 11:34 | CARD ---
APPROVED REPORT EKG Measurement Heart [id number] <Conclusion> Atrial flutter with variable AV block with frequent ventricular-paced complexes Left axis deviation Right bundle branch block Left ventricular hypertrophy with repolarization abnormality Inferior infarct, age undetermined Abnormal ECG
--- NOTE | 2017-04-17 14:35 | CP.PCM.HP ---
History of Present Illness - History of Present Illness History of Present Illness: AD Med Surg for Dialysis, Also Patient was in TCU for ATB treatment for Pneumonia , Cervical Myelopathy , Lumbago with RLE Radiculopathy Patient is complaining of Cervical Pain, L-S pain radiated to RLE, occasional cough with scanty amount of yellowish sputum Present on Admission - Present on Admission Any Indicators Present on Admission: No Review of Systems - Constitutional Constitutional: Other - EENT Eyes: Other Nose/Mouth/Throat: Other - Cardiovascular Cardiovascular: Irregular Heart Rhythm, Leg Edema - Respiratory Respiratory: Cough - Gastrointestinal Gastrointestinal: Other - Genitourinary Genitourinary: Other - Musculoskeletal Musculoskeletal: Arthralgias, Back Pain, Radiating Pain into Limb Additional comments: Cervical pain - Integumentary Integumentary: Other - Neurological Neurological: Weakness - Psychiatric Psychiatric: Other - Endocrine Endocrine: Other - Hematologic/Lymphatic Hematologic: Other Past Patient History - Infectious Disease Hx of Infectious Diseases: None - Past Medical History & Family History Past Medical History?: Yes - Past Social History Smoking Status: Former Smoker - CARDIAC Hx Cardiac Disorders: Yes Hx Atrial Fibrillation: Yes Hx Cardia Arrhythmia: Yes Hx Congestive Heart Failure: Yes Hx Hypertension: Yes Hx Pacemaker: Yes Hx Peripheral Edema: Yes - PULMONARY Hx Respiratory Disorders: Yes Hx Pneumonia: Yes (2006) - NEUROLOGICAL Hx Neurological Disorder: Yes Hx Syncope: Yes Other/Comment: COMATOSE 1 MONTH 2008 DUE TO RENAL FAILURE - HEENT Hx HEENT Problems: No - RENAL Hx Chronic Kidney Disease: Yes Hx Dialysis: Yes - ENDOCRINE/METABOLIC Hx Endocrine Disorders: No - HEMATOLOGICAL/ONCOLOGICAL Hx Blood Disorders: Yes Hx AIDS: No Hx Anemia: Yes Hx Human Immunodeficiency Virus (HIV): No - INTEGUMENTARY Hx Dermatological Problems: Yes Other/Comment: CHRONIC PRURITUS - MUSCULOSKELETAL/RHEUMATOLOGICAL Hx Musculoskeletal Disorders: No Hx Falls: Yes - GASTROINTESTINAL Hx Gastrointestinal Disorders: Yes Other/Comment: ABD HERNIA HISTORY FEEDING TUBE INSERTION AND REMOVAL - GENITOURINARY/GYNECOLOGICAL Hx Genitourinary Disorders: No - PSYCHIATRIC Hx Psychophysiologic Disorder: No Hx Substance Use: No - SURGICAL HISTORY Hx Surgeries: Yes Hx Tonsillectomy: Yes Hx Vascular Access Device: Yes - ANESTHESIA Hx Anesthesia: Yes Hx Anesthesia Reactions: No Hx Malignant Hyperthermia: No Meds Allergies/Adverse Reactions: Allergies Allergy/AdvReac Type Severity Reaction Status Date / Time venice inhibitors Allergy Mild ANAPHYLAXIS Uncoded 04/16/17 17:22 Physical Exam - Constitutional Appears: Chronically Ill - Head Exam Head Exam: NORMAL INSPECTION - Eye Exam Eye Exam: PERRL - ENT Exam ENT Exam: Normal Exam - Neck Exam Neck exam: Positive for: Tenderness - Respiratory Exam Respiratory Exam: Decreased Breath Sounds (at bases), Rhonchi (scattered at bases) - Cardiovascular Exam Cardiovascular Exam: Irregular Rhythm, Systolic Murmur (1/6 LSB) - GI/Abdominal Exam GI & Abdominal Exam: Normal Bowel Sounds, Soft - Extremities Exam Extremities exam: Positive for: pedal edema (leg edema, dressing in place) - Back Exam Back exam: tenderness (radiated to RLE) - Neurological Exam Neurological exam: Alert, CN II-XII Intact Additional comments: Cervical and L-S pain limit movement - Psychiatric Exam Psychiatric exam: Anxious - Skin Skin Exam: Warm Results - Vital Signs Recent Vital Signs: Last Vital Signs Temp 97.8 F 04/17/17 07:31 Pulse 57 L 04/17/17 07:31 Resp 20 04/17/17 07:31 BP 119/72 04/17/17 10:07 Pulse Ox 100 04/17/17 07:31 - Labs Result Diagrams: 04/19/17 09:00 04/19/17 09:00 Assessment & Plan (1) Pneumonia Status: Acute (2) Afib Status: Chronic (3) CKD (chronic kidney disease) stage V requiring chronic dialysis Status: Chronic (4) Anemia due to chronic kidney disease Status: Chronic Priority: High (5) CHF (congestive heart failure) Status: Chronic Priority: High (6) Cervical spinal stenosis Status: Chronic (7) Hypertension Status: Chronic (8) Lumbago Status: Chronic (9) Radiculopathy Status: Acute - Assessment and Plan (Free Text) Plan: Continue Dialysis , [place] Zosyn , Vanco , Percocet, Amiodarone and rest of treatment , Neurosurgical and Renal consult appreciated
--- NOTE | 2017-04-17 15:17 | CP.PCM.PN ---
Subjective - Date & Time of Evaluation Date of Evaluation: 04/17/17 Time of Evaluation: 15:15 - Subjective Subjective: Follow up Nephrology Consultation Note Assessment: Stable Diabetic chronic Kidney Disease (E11.22) Hypertensive Chronic Kidney Disease (I12.0) End stage renal disease (N18.6) dependence on hemodialysis (Z99.2) (TTS) via AVF Anemia (D64.9), Hyperphosphatemia (E83.39), Secondary Hyperparathyroidism (E21.1 ), HTN (I12.0) recent Pneumonia back pain Plan: Will plan for HD tuesday as per TTS schedule. Continue with Nephrovite 1 tab/ day. PRBC as needed for anemia. on JOSEE as epogen 4000 unit with HD last Hb 11 Continue with phos binders last phos level 5.6 BP control with meds as ordered. lower dose of losartan as BP on low side. also d/c norvasc for now Glycemic control, Dialysis consistent diet Further work up/management as per primary team Dose meds/antibiotics (if needed) for ESRD status. Avoid fleets enema/magnesium based laxatives. 04/16/17: Called [facility] and was informed that pt is not an active pt there. he used to get HD in past but last HD in February then he was d/c to [facility]. called there too and pt was said to be d/c from there to go back to [facility]. At present, pt is not assigned to any outpt HD unit. SW consult for outpt HD arrangements. Thanks for allowing me to participate in care of your patient. Will follow patient with you. Please call if any Qs Dr Piter Betancur Office: [phone] Subjective: Noted events overnight. Patients feels okay except back pain. Denies chest pain, palpitation. feels better with shortness of breath, improved leg swelling. No urinary complaints Physical Examination: General Appearance: Comfortable, in no acute respiratory distress, co- operative. Vitals reviewed and noted as below Lungs: Normal respiratory rate/effort. Breath sounds bilateral equal and clear Heart: Normal rate. s1s2 normal. No rub or gallop. Extremities: 1+edema. Neurological: Patient is alert, awake and oriented to person, place and time. No focal deficit. Strength bilateral appropriate and equal Skin: Warm and dry. Normal turgor. No rash. Palpitation: Normal elasticity for age Abdomen: Abdomen is soft. Bowel sounds +. There is no abdominal tenderness, no guarding/rigidity or organomegaly : kidney or bladder not palpable Access: AVF Labs/imaging reviewed. Past medical history, past surgical history, family history, social history, allergy reviewed Objective - Vital Signs/Intake and Output Vital Signs (last 24 hours): Temp Pulse Resp BP Pulse Ox 97.8 F 57 L 20 119/72 100 04/17/17 07:31 04/17/17 07:31 04/17/17 07:31 04/17/17 10:07 04/17/17 07:31 - Medications Medications: Current Medications Albuterol/Ipratropium (Duoneb 3 Mg/0.5 Mg (3 Ml) Ud) 3 ml INH RQ6 PRN PRN Reason: Shortness of Breath Amiodarone HCl (Cordarone) 100 mg PO DAILY [facility] Last Admin: 04/17/17 09:54 Dose: 100 mg Aspirin (Ecotrin) 81 mg PO DAILY [facility] Last Admin: 04/17/17 09:55 Dose: 81 mg Epoetin Giovanny (Procrit) 4,000 unit SC TTS [facility] Heparin Sodium (Porcine) (Heparin) 5,000 units SC Q12 BETTYE PRN Reason: Protocol Last Admin: 04/17/17 10:07 Dose: 5,000 units Piperacillin Sod/Tazobactam (Sod 2.25 gm/ Sodium Chloride) 100 mls @ 100 mls/ hr IVPB Q8 [facility] Last Admin: 04/17/17 09:55 Dose: 100 mls/hr Vancomycin HCl 500 mg/ Sodium (Chloride) 100 mls @ 100 mls/hr IVPB TTS [facility] Last Admin: 04/17/17 01:33 Dose: 100 mls/hr Lactic Acid (Lac-Hydrin 12% Cream (140 G)) 1 ea TOP QID [facility] Last Admin: 04/17/17 12:41 Dose: 1 applic Losartan Potassium (Cozaar) 25 mg PO DAILY [facility] Oxycodone/Acetaminophen (Percocet 5/325 Mg Tab) 1 tab PO Q4 PRN PRN Reason: pain scale 4-10 Stop: 04/20/17 14:43 Promethazine HCl/Codeine (Phenergan/Codeine Oral Syrup) 5 ml PO Q6 PRN PRN Reason: Cough Sevelamer HCl (Renagel) 2,400 mg PO TID [facility] Last Admin: 04/17/17 12:41 Dose: 2,400 mg Vitamin B Complex/Vit C/Folic Acid (Nephro-Jacqueline) 1 tab PO DAILY [facility] Last Admin: 04/17/17 09:54 Dose: 1 tab
[2017-04-17] MEDS: Oxycodone/Acetaminophen 5/325 mg Tab PO PRN (17:16)
[2017-04-18] MEDS: TAZOBACTAM IVPB SCH ×3 (01:03→16:00)
[2017-04-18] MEDS: PIPERACILLIN IVPB SCH ×3 (01:03→16:00)
[2017-04-18] MEDS: SODIUM CHLORIDE IVPB SCH ×3 (01:03→16:00)
[2017-04-18] MEDS: Multivitamin Vitamin B Complex (Nephro-Vite) Tab PO SCH (09:12)
[2017-04-18] MEDS: Ammonium Lactate 12% Cream (140 g) TOP SCH ×4 (09:12→21:39)
--- NOTE | 2017-04-18 11:31 | CP.PCM.PN ---
Subjective - Date & Time of Evaluation Date of Evaluation: 04/18/17 Time of Evaluation: 11:30 - Subjective Subjective: Follow up Nephrology Consultation Note Assessment: Stable Diabetic chronic Kidney Disease (E11.22) Hypertensive Chronic Kidney Disease (I12.0) End stage renal disease (N18.6) dependence on hemodialysis (Z99.2) (TTS) via AVF Anemia (D64.9), Hyperphosphatemia (E83.39), Secondary Hyperparathyroidism (E21.1 ), HTN (I12.0) recent Pneumonia back pain Plan: Will plan for HD tuesday as per TTS schedule. Continue with Nephrovite 1 tab/ day. PRBC as needed for anemia. on JOSEE as epogen 4000 unit with HD last Hb 11 Continue with phos binders last phos level 5.6 BP control with meds as ordered. lower dose of losartan as BP on low side. also d/c norvasc for now Glycemic control, Dialysis consistent diet Further work up/management as per primary team Dose meds/antibiotics (if needed) for ESRD status. Avoid fleets enema/magnesium based laxatives. 04/16/17: Called [facility] and was informed that pt is not an active pt there. he used to get HD in past but last HD in February then he was d/c to [facility]. called there too and pt was said to be d/c from there to go back to [facility]. At present, pt is not assigned to any outpt HD unit. SW consult for outpt HD arrangements. Thanks for allowing me to participate in care of your patient. Will follow patient with you. Please call if any Qs Dr Piter Betancur Office: [phone] Subjective: Noted events overnight. Patients says I want to rest today. Denies chest pain, palpitation. feels better with shortness of breath, improved leg swelling. No urinary complaints Physical Examination: General Appearance: Comfortable, in no acute respiratory distress, co- operative. Vitals reviewed and noted as below Lungs: Normal respiratory rate/effort. Breath sounds bilateral equal and clear Heart: Normal rate. s1s2 normal. No rub or gallop. Extremities: 1+edema. Neurological: Patient is alert, awake and oriented to person, place and time. No focal deficit. Strength bilateral appropriate and equal Skin: Warm and dry. Normal turgor. No rash. Palpitation: Normal elasticity for age Abdomen: Abdomen is soft. Bowel sounds +. There is no abdominal tenderness, no guarding/rigidity or organomegaly : kidney or bladder not palpable Access: AVF Labs/imaging reviewed. Past medical history, past surgical history, family history, social history, allergy reviewed Objective - Vital Signs/Intake and Output Vital Signs (last 24 hours): Temp Pulse Resp BP Pulse Ox 97.6 F 63 20 123/64 99 04/18/17 07:18 04/18/17 09:11 04/18/17 07:18 04/18/17 09:11 04/18/17 07:18 - Medications Medications: Current Medications Albuterol/Ipratropium (Duoneb 3 Mg/0.5 Mg (3 Ml) Ud) 3 ml INH RQ6 PRN PRN Reason: Shortness of Breath Amiodarone HCl (Cordarone) 100 mg PO DAILY [facility] Last Admin: 04/18/17 09:09 Dose: 100 mg Aspirin (Ecotrin) 81 mg PO DAILY [facility] Last Admin: 04/18/17 09:11 Dose: 81 mg Epoetin Giovanny (Procrit) 4,000 unit SC TTS [facility] Heparin Sodium (Porcine) (Heparin) 5,000 units SC Q12 BETTYE PRN Reason: Protocol Last Admin: 04/18/17 09:11 Dose: 5,000 units Piperacillin Sod/Tazobactam (Sod 2.25 gm/ Sodium Chloride) 100 mls @ 100 mls/ hr IVPB Q8 [facility] Last Admin: 04/18/17 09:13 Dose: 100 mls/hr Vancomycin HCl 500 mg/ Sodium (Chloride) 100 mls @ 100 mls/hr IVPB TTS [facility] Last Admin: 04/17/17 01:33 Dose: 100 mls/hr Lactic Acid (Lac-Hydrin 12% Cream (140 G)) 1 ea TOP QID [facility] Last Admin: 04/18/17 09:12 Dose: 1 applic Losartan Potassium (Cozaar) 25 mg PO DAILY [facility] Last Admin: 04/18/17 09:11 Dose: 25 mg Oxycodone/Acetaminophen (Percocet 5/325 Mg Tab) 1 tab PO Q4 PRN PRN Reason: pain scale 4-10 Stop: 04/20/17 14:43 Last Admin: 04/17/17 17:16 Dose: 1 tab Promethazine HCl/Codeine (Phenergan/Codeine Oral Syrup) 5 ml PO Q6 PRN PRN Reason: Cough Sevelamer HCl (Renagel) 2,400 mg PO TID [facility] Last Admin: 04/18/17 09:13 Dose: 2,400 mg Vitamin B Complex/Vit C/Folic Acid (Nephro-Jacqueline) 1 tab PO DAILY [facility] Last Admin: 04/18/17 09:12 Dose: 1 tab
--- NOTE | 2017-04-18 15:19 | CT ---
PROCEDURE: CT cervical spine dated 04/18/2017. HISTORY: Rule out osteomyelitis. COMPARISON: No prior study available for comparison TECHNIQUE: CT of the cervical spine without intravenous contrast. Coronal and sagittal reformats generated. Radiation dose: DLP 438.06 mGy-cm This CT exam was performed using one or more of the following dose reduction techniques: Automated exposure control, adjustment of the mA and/or kV according to patient size, and/or use of iterative reconstruction technique. FINDINGS: The current study reveals chronic appearing destructive changes of the of the C4, C5-C6 and superior C7 segments. On there are significant anterior wedge deformities of the C4-C5 and C6 segments with significant kyphotic angulation and retropulsion of fragments. The changes result in swan-neck deformity and severe canal stenosis and compression of the ventral surface of the spinal cord. Exit foramina are also stenotic over these levels more so on the left side. MRI of the cervical spine recommended for further evaluation. No evidence of significant surrounding paraspinal inflammatory changes or phlegmon/abscess formation. Prevertebral soft tissues appear relatively unremarkable despite the changes involving the mid cervical segments. These findings could be due to chronic renal osteodystrophy if this patient has a history of renal failure. Additional differential diagnostic considerations included treated osteomyelitis discitis on for bacterial or other infection including TB on, old trauma with secondary DJD. Clinical correlation recommended. . Neurosurgical consultation is also recommended. There also appears to be mild posterior disc space narrowing at the C2-C3 level with no evidence of significant canal stenosis nor cord compression. Exit foramina appear adequate so far as can be seen. Note made of partial opacification both inferior mastoid air complexes. There is mild mucosal thickening in the ethmoid air complex extending superiorly into the frontal sinus. . Moderate mucosal thickening left maxillary antrum and mild mucosal thickening right maxillary antrum. Vascular calcifications both carotid bifurcations. Consider followup carotid Doppler. Parotid and submandibular glands grossly unremarkable. Thyroid gland is poorly seen due to crossing streak and beam hardening artifact arising from the dense clavicles and shoulder girdles. Lung apices are clear. Note made of in situ left subclavian vein endovascular stent that extends into the left brachiocephalic vein through which extent disconnected left-sided pacemaker leads. Right-sided pacemaker leads are also seen. . Impression: Chronic appearing anterior wedge deformities of the C4, C5 and C6 segments with chronic appearing erosive -destructive changes of the endplates including the C7 superior endplate. There is are retropulsion of the posterior cortical margins of all of these segments which result in swan-neck deformity and very severe central canal stenosis is well as cord compression. Findings likely due to chronic sequela of renal osteodystrophy however see above discussion for additional differential diagnostic considerations. These findings were discussed with Dr. Nation at approximately 2:45 p.m. with written down and read back verification. Neurosurgical consultation also recommended. Note that the presence of in situ pacemaker precludes evaluation by MRI See above discussion for additional details and findings.
--- NOTE | 2017-04-18 15:51 | CP.PCM.PN ---
Subjective - Subjective Subjective: Occasional cough with scanty amount of yellowish flegm, Cervical pain , L-S pain radiated to RLE Objective - Vital Signs/Intake and Output Vital Signs (last 24 hours): Temp Pulse Resp BP Pulse Ox 97.6 F 63 20 123/64 99 04/18/17 07:18 04/18/17 09:11 04/18/17 07:18 04/18/17 09:11 04/18/17 07:18 - Medications Medications: Current Medications Albuterol/Ipratropium (Duoneb 3 Mg/0.5 Mg (3 Ml) Ud) 3 ml INH RQ6 PRN PRN Reason: Shortness of Breath Amiodarone HCl (Cordarone) 100 mg PO DAILY [facility] Last Admin: 04/18/17 09:09 Dose: 100 mg Aspirin (Ecotrin) 81 mg PO DAILY [facility] Last Admin: 04/18/17 09:11 Dose: 81 mg Epoetin Giovanny (Procrit) 4,000 unit SC TTS [facility] Heparin Sodium (Porcine) (Heparin) 5,000 units SC Q12 BETTYE PRN Reason: Protocol Last Admin: 04/18/17 09:11 Dose: 5,000 units Piperacillin Sod/Tazobactam (Sod 2.25 gm/ Sodium Chloride) 100 mls @ 100 mls/ hr IVPB Q8 [facility] Last Admin: 04/18/17 09:13 Dose: 100 mls/hr Vancomycin HCl 500 mg/ Sodium (Chloride) 100 mls @ 100 mls/hr IVPB TTS [facility] Last Admin: 04/17/17 01:33 Dose: 100 mls/hr Lactic Acid (Lac-Hydrin 12% Cream (140 G)) 1 ea TOP QID [facility] Last Admin: 04/18/17 09:12 Dose: 1 applic Losartan Potassium (Cozaar) 25 mg PO DAILY [facility] Last Admin: 04/18/17 09:11 Dose: 25 mg Oxycodone/Acetaminophen (Percocet 5/325 Mg Tab) 1 tab PO Q4 PRN PRN Reason: pain scale 4-10 Stop: 04/20/17 14:43 Last Admin: 04/17/17 17:16 Dose: 1 tab Promethazine HCl/Codeine (Phenergan/Codeine Oral Syrup) 5 ml PO Q6 PRN PRN Reason: Cough Sevelamer HCl (Renagel) 2,400 mg PO TID [facility] Last Admin: 04/18/17 09:13 Dose: 2,400 mg Vitamin B Complex/Vit C/Folic Acid (Nephro-Jacqueline) 1 tab PO DAILY [facility] Last Admin: 04/18/17 09:12 Dose: 1 tab - Constitutional Appears: Chronically Ill - Head Exam Head Exam: NORMAL INSPECTION - Eye Exam Eye Exam: PERRL - ENT Exam ENT Exam: Normal Exam - Neck Exam Neck Exam: Tenderness - Respiratory Exam Respiratory Exam: Decreased Breath Sounds (at bases) - Cardiovascular Exam Cardiovascular Exam: Irregular Rhythm - GI/Abdominal Exam GI & Abdominal Exam: Soft, Normal Bowel Sounds - Back Exam Back Exam: tenderness (radiated to LLE) - Neurological Exam Neurological Exam: Alert, Oriented x3 Additional comments: motor weakness L> R UE - Psychiatric Exam Psychiatric exam: Anxious - Skin Skin Exam: Warm Assessment and Plan (1) Pneumonia Status: Acute (2) Afib Status: Chronic (3) Cervical spinal stenosis Status: Chronic (4) Cervical myelopathy Status: Acute (5) CKD (chronic kidney disease) stage V requiring chronic dialysis Status: Chronic (6) Anemia due to chronic kidney disease Status: Chronic (7) CHF (congestive heart failure) Status: Chronic (8) Hypertension Status: Chronic - Assessment and Plan (Free Text) Plan: Neck CT discussed with Radiologist C4 to C7 swan neck feformity, central canal stenosis , cord compresion , transfer to Telemetry , Bed rest , Neurosorgical f/u
[2017-04-19] MEDS: PIPERACILLIN IVPB SCH ×3 (01:18→16:21)
[2017-04-19] MEDS: TAZOBACTAM IVPB SCH ×3 (01:18→16:21)
[2017-04-19] MEDS: SODIUM CHLORIDE IVPB SCH ×3 (01:18→16:21)
[2017-04-19] MEDS: Oxycodone/Acetaminophen 5/325 mg Tab PO PRN ×4 (01:27→23:44)
[2017-04-19] MEDS: Ammonium Lactate 12% Cream (140 g) TOP SCH ×4 (08:45→22:58)
[2017-04-19] MEDS: Multivitamin Vitamin B Complex (Nephro-Vite) Tab PO SCH (08:46)
[2017-04-19] MEDS ORDERED: Epoetin Alfa 4000 UNIT/ML Inj SC SCH (09:00)
[2017-04-19 09:40] LABS: BASO # 0.1 K/uL (0.0-0.2); BASO % 1.5 % (0.0-2.0); EOS # 0.2 K/uL (0.0-0.7); EOS % 4.5 % (0.0-4.0); HEMATOCRIT 30.2 % (35.0-51.0); LYMPH # 0.5 K/uL (1.0-4.3); LYMPH % 14.1 % (20.0-40.0); MEAN CELL VOLUME 102.4 fl (80.0-94.0); MEAN CORPUSCULAR HEMOGLOBIN 32.8 pg (27.0-31.0); MEAN PLATELET VOLUME 7.5 fl (7.2-11.7); MONO # 0.5 K/uL (0.0-0.8); MONO % 15.1 % (0.0-10.0); NEUT # 2.3 K/uL (1.8-7.0); NEUT % 64.8 % (50.0-75.0); NRBC % 0.1 % (0.0-0.0); RED CELL DISTRIBUTION WIDTH 17.2 % (11.5-14.5); WHITE BLOOD COUNT 3.6 K/uL (4.8-10.8)
[2017-04-19 09:43] LABS: ALB/GLOB RATIO 0.9 (1.0-2.1); BILIRUBIN,TOTAL 0.6 mg/dl (0.2-1.3); CALCIUM 9.5 mg/dL (8.4-10.2); POTASSIUM 4.7 MMOL/L (3.6-5.0); TOTAL PROTEIN 8.4 G/DL (6.3-8.2)
--- NOTE | 2017-04-19 10:59 | CP.PCM.PN ---
Subjective - Date & Time of Evaluation Date of Evaluation: 04/19/17 Time of Evaluation: 10:53 - Subjective Subjective: SPINE Pt OOB in recliner. States he gets SOB if laying in bed. Feels a little better than yesterday. Had long discussion with pt re: his condition. Showed his neck CT films to him so he could have a better understanding of his situation. Pt wishes to proceed with the surgery. He understands this is being done to try and preserve what he currently has in function, and certainly no guarantees can be made re: improvement in functional status. Explained again he could be paralyzed in attempting to decompress his cord, but he understands he is heading in that direction slowly anyway if nothing is done. Will need Cardiac, Pulmonary, and Renal clearances before scheduling anything. Objective - Vital Signs/Intake and Output Vital Signs (last 24 hours): Temp Pulse Resp BP Pulse Ox 97.3 F L 92 H 18 120/66 95 04/19/17 08:04 04/19/17 08:45 04/19/17 08:04 04/19/17 08:45 04/19/17 08:04 - Medications Medications: Current Medications Albuterol/Ipratropium (Duoneb 3 Mg/0.5 Mg (3 Ml) Ud) 3 ml INH RQ6 PRN PRN Reason: Shortness of Breath Last Admin: 04/18/17 18:01 Dose: 3 ml Amiodarone HCl (Cordarone) 100 mg PO DAILY [facility] Last Admin: 04/19/17 08:45 Dose: 100 mg Aspirin (Ecotrin) 81 mg PO DAILY [facility] Last Admin: 04/19/17 08:45 Dose: 81 mg Epoetin Giovanny (Procrit) 4,000 unit SC TTS [facility] Heparin Sodium (Porcine) (Heparin) 5,000 units SC Q12 BETTYE PRN Reason: Protocol Last Admin: 04/18/17 21:38 Dose: 5,000 units Piperacillin Sod/Tazobactam (Sod 2.25 gm/ Sodium Chloride) 100 mls @ 100 mls/ hr IVPB Q8 [facility] Last Admin: 04/19/17 08:46 Dose: 100 mls/hr Vancomycin HCl 500 mg/ Sodium (Chloride) 100 mls @ 100 mls/hr IVPB TTS [facility] Last Admin: 04/17/17 01:33 Dose: 100 mls/hr Lactic Acid (Lac-Hydrin 12% Cream (140 G)) 1 ea TOP QID [facility] Last Admin: 04/19/17 08:45 Dose: 1 applic Losartan Potassium (Cozaar) 25 mg PO DAILY [facility] Last Admin: 04/19/17 08:45 Dose: 25 mg Oxycodone/Acetaminophen (Percocet 5/325 Mg Tab) 1 tab PO Q4 PRN PRN Reason: pain scale 4-10 Stop: 04/20/17 14:43 Last Admin: 04/19/17 10:33 Dose: 1 tab Promethazine HCl/Codeine (Phenergan/Codeine Oral Syrup) 5 ml PO Q6 PRN PRN Reason: Cough Sevelamer HCl (Renagel) 2,400 mg PO TID [facility] Last Admin: 04/19/17 08:46 Dose: 2,400 mg Vitamin B Complex/Vit C/Folic Acid (Nephro-Jacqueline) 1 tab PO DAILY [facility] Last Admin: 04/19/17 08:46 Dose: 1 tab - Labs Labs: 04/19/17 09:00 04/19/17 09:00
[2017-04-19 11:04] LABS: PARTIAL THROMBOPLASTIN TIME 35.6 Seconds (25.6-37.1)
--- NOTE | 2017-04-19 12:15 | CP.PCM.PN ---
Subjective - Date & Time of Evaluation Date of Evaluation: 04/19/17 Time of Evaluation: 11:20 - Subjective Subjective: F/U PNA. Patient was transfered to [address] [place] [address] for f/u Cervical Myelopathy and to stay on bed rest, Patient refused bed rest, complains of Cervical pain, weakness L > R UE, L-S pain improved , today not radiating to RLE Objective - Vital Signs/Intake and Output Vital Signs (last 24 hours): Temp Pulse Resp BP Pulse Ox 97.6 F 87 20 109/74 98 04/19/17 12:13 04/19/17 12:13 04/19/17 12:13 04/19/17 12:13 04/19/17 12:13 - Medications Medications: Current Medications Albuterol/Ipratropium (Duoneb 3 Mg/0.5 Mg (3 Ml) Ud) 3 ml INH RQ6 PRN PRN Reason: Shortness of Breath Last Admin: 04/18/17 18:01 Dose: 3 ml Amiodarone HCl (Cordarone) 100 mg PO DAILY [facility] Last Admin: 04/19/17 08:45 Dose: 100 mg Aspirin (Ecotrin) 81 mg PO DAILY [facility] Last Admin: 04/19/17 08:45 Dose: 81 mg Epoetin Giovanny (Procrit) 4,000 unit SC TTS [facility] Heparin Sodium (Porcine) (Heparin) 5,000 units SC Q12 BETTYE PRN Reason: Protocol Last Admin: 04/18/17 21:38 Dose: 5,000 units Piperacillin Sod/Tazobactam (Sod 2.25 gm/ Sodium Chloride) 100 mls @ 100 mls/ hr IVPB Q8 [facility] Last Admin: 04/19/17 08:46 Dose: 100 mls/hr Vancomycin HCl 500 mg/ Sodium (Chloride) 100 mls @ 100 mls/hr IVPB TTS [facility] Last Admin: 04/17/17 01:33 Dose: 100 mls/hr Lactic Acid (Lac-Hydrin 12% Cream (140 G)) 1 ea TOP QID [facility] Last Admin: 04/19/17 08:45 Dose: 1 applic Losartan Potassium (Cozaar) 25 mg PO DAILY [facility] Last Admin: 04/19/17 08:45 Dose: 25 mg Oxycodone/Acetaminophen (Percocet 5/325 Mg Tab) 1 tab PO Q4 PRN PRN Reason: pain scale 4-10 Stop: 04/20/17 14:43 Last Admin: 04/19/17 10:33 Dose: 1 tab Promethazine HCl/Codeine (Phenergan/Codeine Oral Syrup) 5 ml PO Q6 PRN PRN Reason: Cough Sevelamer HCl (Renagel) 2,400 mg PO TID [facility] Last Admin: 04/19/17 08:46 Dose: 2,400 mg Vitamin B Complex/Vit C/Folic Acid (Nephro-Jacqueline) 1 tab PO DAILY [facility] Last Admin: 04/19/17 08:46 Dose: 1 tab - Labs Labs: 04/19/17 09:00 04/19/17 09:00 PT 12.0 Seconds (9.8-13.1) 04/19/17 10:15 INR 1.2 (0.9-1.2) 04/19/17 10:15 APTT 35.6 Seconds (25.6-37.1) 04/19/17 10:15 - Constitutional Appears: Chronically Ill - Head Exam Head Exam: NORMAL INSPECTION - Eye Exam Eye Exam: PERRL - ENT Exam ENT Exam: Normal Exam - Neck Exam Neck Exam: Tenderness - Respiratory Exam Respiratory Exam: Decreased Breath Sounds (at bases) - Cardiovascular Exam Cardiovascular Exam: Irregular Rhythm - GI/Abdominal Exam GI & Abdominal Exam: Soft, Normal Bowel Sounds - Extremities Exam Additional comments: trace leg edema, LUE Arm AV shunt with bruit and thhrill - Back Exam Back Exam: tenderness (L-S radiated to LLE) - Neurological Exam Neurological Exam: Alert, Oriented x3 Additional comments: Motor weakness upper extremities, L>R , weakness L/E - Psychiatric Exam Psychiatric exam: Anxious - Skin Skin Exam: Warm Assessment and Plan (1) Pneumonia Status: Acute (2) Cervical spinal stenosis Status: Chronic (3) Cervical myelopathy Status: Acute (4) Lumbago Status: Chronic (5) Radiculopathy Status: Acute (6) Afib Status: Chronic (7) CKD (chronic kidney disease) stage V requiring chronic dialysis Status: Chronic (8) Anemia due to chronic kidney disease Status: Chronic (9) CHF (congestive heart failure) Status: Chronic (10) Hypertension Status: Chronic - Assessment and Plan (Free Text) Plan: Discussed with Patient , Surgical procedure suggested by Neurosurgeon to correct Cervical Spinal Stenosis and Cervical Myelopathy, Patient would like to be transferred to [facility] to be follow by his Safemaker and Computer Technology Instructor and discuss with them Medical clearance , also ID senior information security consultant can follow Patient there.
--- NOTE | 2017-04-19 12:25 | CP.PCM.CON ---
History of Present Illness - History of Present Illness History of Present Illness: 66 yo male admitted with uremia and back / mi pain as well as recent pneumonia started on empiric IV antibiotics Has OM of C spine as per films and Dr Wilcox on consult May need OR for fixation IV antibiotics in progress cultures noted/ pending May need OR cultures of Bone including AFB Diabetic chronic Kidney Disease (E11.22) Hypertensive Chronic Kidney Disease (I12.0) End stage renal disease (N18.6) dependence on hemodialysis (Z99.2) (TTS) via AVF Anemia (D64.9), Hyperphosphatemia (E83.39), Secondary Hyperparathyroidism (E21.1 ), HTN (I12.0) recent Pneumonia back pain Review of Systems - Constitutional Constitutional: As Per HPI - EENT Eyes: absent: As Per HPI, Blind Spots, Blurred Vision, Change in Vision, Decreased Night Vision, Diplopia, Discharge, Dry Eye, Exophthalmos, Floaters, Irritation, Itchy Eyes, Loss of Peripheral Vision, Pain, Photophobia, Requires Corrective Lenses, Sees Flashes, Spots in Vision, Tunnel Vision, Other Visual Disturbances, Loss of Vision, Other Ears: absent: As Per HPI, Decreased Hearing, Ear Discharge, Ear Pain, Tinnitus, Abnormal Hearing, Disequilibrium, Dizziness, Other Nose/Mouth/Throat: absent: As Per HPI, Epistaxis, Nasal Congestion, Nasal Discharge, Nasal Obstruction, Nasal Trauma, Nose Pain, Post Nasal Drip, Sinus Pain, Sinus Pressure, Bleeding Gums, Change in Voice, Dental Pain, Dry Mouth, Dysphagia, Halitosis, Hoarsness, Lip Swelling, Mouth Lesions, Mouth Pain, Odynophagia, Sore Throat, Throat Swelling, Tongue Swelling, Facial Pain, Neck Pain, Neck Mass, Other - Cardiovascular Cardiovascular: As Per HPI - Respiratory Respiratory: As Per HPI, Cough. absent: Hemoptysis - Gastrointestinal Gastrointestinal: absent: As Per HPI, Abdominal Pain, Belching, Bloating, Change in Bowel Habits, Change in Stool Character, Coffee Ground Emesis, Constipation, Cramping, Diarrhea, Dyspepsia, Dysphagia, Early Satiety, Excessive Flatus, Fecal Incontinence, Heartburn, Hematemesis, Hematochezia, Loose Stools, Melena, Nausea, Odynophagia, Temesmus, Vomiting, Other - Genitourinary Genitourinary: absent: As Per HPI, Change in Urinary Stream, Difficulty Urinating, Dysuria, Flank Pain, Hematuria, Pyuria, Nocturia, Urinary Incontinence, Urinary Frequency, Urinary Hesitance, Urinary Urgency, Voiding Freq/Small Amts, Freq UTI, Hx Renal/Bladder Calculi, Hx /Renal Surgery, Bladder Distension, Other - Musculoskeletal Musculoskeletal: As Per HPI - Integumentary Integumentary: As Per HPI - Neurological Neurological: As Per HPI, Abnormal Gait, Radicular Pain - Psychiatric Psychiatric: absent: As Per HPI, Abnormal Sleep Pattern, Anhedonia, Anxiety, Auditory Hallucinations, Behavioral Changes, Change in Appetite, Change in Libido, Confusion, Depression, Difficulty Concentrating, Hallucinations, Homicidal Ideation, Hopelessness, Irritability, Memory Loss, Mood Swings, Panic Attacks, Paranoia, Suicidal Ideation, Visual Hallucinations, Tactile Hallucinations, Other - Endocrine Endocrine: absent: As Per HPI, Change in Body Appearance, Change in Libido, Cold Intolorance, Deepening of Voice, Excessive Sweating, Fatigue, Flushing, Heat Intolorance, Increase in Ring/Shoe/Hat Size, Palpitations, Polydipsia, Polyphagia, Polyuria, Other - Hematologic/Lymphatic Hematologic: absent: As Per HPI, Easy Bleeding, Easy Bruising, Lymphadenopathy, Other Past Patient History - Infectious Disease Hx of Infectious Diseases: None - Past Medical History & Family History Past Medical History?: Yes - Past Social History Smoking Status: Former Smoker - CARDIAC Hx Cardiac Disorders: Yes Hx Atrial Fibrillation: Yes Hx Cardia Arrhythmia: Yes Hx Congestive Heart Failure: Yes Hx Hypertension: Yes Hx Pacemaker: Yes Hx Peripheral Edema: Yes - PULMONARY Hx Respiratory Disorders: Yes Hx Pneumonia: Yes (2006) - NEUROLOGICAL Hx Neurological Disorder: Yes Hx Syncope: Yes Other/Comment: COMATOSE 1 MONTH 2008 DUE TO RENAL FAILURE - HEENT Hx HEENT Problems: No - RENAL Hx Chronic Kidney Disease: Yes Hx Dialysis: Yes - ENDOCRINE/METABOLIC Hx Endocrine Disorders: No - HEMATOLOGICAL/ONCOLOGICAL Hx Blood Disorders: Yes Hx AIDS: No Hx Anemia: Yes Hx Human Immunodeficiency Virus (HIV): No - INTEGUMENTARY Hx Dermatological Problems: Yes Other/Comment: CHRONIC PRURITUS - MUSCULOSKELETAL/RHEUMATOLOGICAL Hx Musculoskeletal Disorders: No Hx Falls: Yes - GASTROINTESTINAL Hx Gastrointestinal Disorders: Yes Other/Comment: ABD HERNIA HISTORY FEEDING TUBE INSERTION AND REMOVAL - GENITOURINARY/GYNECOLOGICAL Hx Genitourinary Disorders: No - PSYCHIATRIC Hx Psychophysiologic Disorder: No Hx Substance Use: No - SURGICAL HISTORY Hx Surgeries: Yes Hx Tonsillectomy: Yes Hx Vascular Access Device: Yes - ANESTHESIA Hx Anesthesia: Yes Hx Anesthesia Reactions: No Hx Malignant Hyperthermia: No Meds Allergies/Adverse Reactions: Allergies Allergy/AdvReac Type Severity Reaction Status Date / Time venice inhibitors Allergy Mild ANAPHYLAXIS Uncoded 04/16/17 17:22 - Medications Medications: Current Medications Albuterol/Ipratropium (Duoneb 3 Mg/0.5 Mg (3 Ml) Ud) 3 ml INH RQ6 PRN PRN Reason: Shortness of Breath Last Admin: 04/18/17 18:01 Dose: 3 ml Amiodarone HCl (Cordarone) 100 mg PO DAILY [facility] Last Admin: 04/19/17 08:45 Dose: 100 mg Aspirin (Ecotrin) 81 mg PO DAILY [facility] Last Admin: 04/19/17 08:45 Dose: 81 mg Epoetin Giovanny (Procrit) 4,000 unit SC TTS [facility] Heparin Sodium (Porcine) (Heparin) 5,000 units SC Q12 BETTYE PRN Reason: Protocol Last Admin: 04/18/17 21:38 Dose: 5,000 units Piperacillin Sod/Tazobactam (Sod 2.25 gm/ Sodium Chloride) 100 mls @ 100 mls/ hr IVPB Q8 [facility] Last Admin: 04/19/17 08:46 Dose: 100 mls/hr Vancomycin HCl 500 mg/ Sodium (Chloride) 100 mls @ 100 mls/hr IVPB TTS [facility] Last Admin: 04/17/17 01:33 Dose: 100 mls/hr Lactic Acid (Lac-Hydrin 12% Cream (140 G)) 1 ea TOP QID [facility] Last Admin: 04/19/17 08:45 Dose: 1 applic Losartan Potassium (Cozaar) 25 mg PO DAILY [facility] Last Admin: 04/19/17 08:45 Dose: 25 mg Oxycodone/Acetaminophen (Percocet 5/325 Mg Tab) 1 tab PO Q4 PRN PRN Reason: pain scale 4-10 Stop: 04/20/17 14:43 Last Admin: 04/19/17 10:33 Dose: 1 tab Promethazine HCl/Codeine (Phenergan/Codeine Oral Syrup) 5 ml PO Q6 PRN PRN Reason: Cough Sevelamer HCl (Renagel) 2,400 mg PO TID [facility] Last Admin: 04/19/17 08:46 Dose: 2,400 mg Vitamin B Complex/Vit C/Folic Acid (Nephro-Jacqueline) 1 tab PO DAILY [facility] Last Admin: 04/19/17 08:46 Dose: 1 tab Physical Exam - Constitutional Appears: Non-toxic, Cachectic, Chronically Ill - Head Exam Head Exam: NORMOCEPHALIC - Eye Exam Eye Exam: EOMI, PERRL. absent: Scleral icterus - ENT Exam ENT Exam: Mucous Membranes Dry, Normal External Ear Exam - Neck Exam Neck exam: Negative for: Lymphadenopathy, Thyromegaly - Respiratory Exam Respiratory Exam: Decreased Breath Sounds - Cardiovascular Exam Cardiovascular Exam: REGULAR RHYTHM, +S1, +S2 - GI/Abdominal Exam GI & Abdominal Exam: Diminished Bowel Sounds, Soft. absent: Tenderness - Rectal Exam Rectal Exam: Deferred - Exam Exam: NORMAL INSPECTION - Extremities Exam Extremities exam: Positive for: pedal edema - Back Exam Back exam: absent: CVA tenderness (L), CVA tenderness (R) - Neurological Exam Neurological exam: Alert, CN II-XII Intact, Motor Sensory Deficit, Oriented x3 - Psychiatric Exam Psychiatric exam: Normal Affect - Skin Skin Exam: Dry, Intact Results - Vital Signs Recent Vital Signs: Last Vital Signs Temp 97.6 F 04/19/17 12:13 Pulse 87 04/19/17 12:13 Resp 20 04/19/17 12:13 BP 109/74 04/19/17 12:13 Pulse Ox 98 04/19/17 12:13 - Labs Result Diagrams: 04/19/17 09:00 04/19/17 09:00 Labs: Laboratory Results - last 24 hr 04/19/17 04/19/17 04/19/17 09:00 09:00 09:00 WBC 3.6 L RBC 2.95 L Hgb 9.7 L Hct 30.2 L MCV 102.4 H MCH 32.8 H MCHC 32.0 L RDW 17.2 H Plt Count 182 MPV 7.5 Neut % (Auto) 64.8 Lymph % (Auto) 14.1 L [place] % (Auto) 15.1 H Eos % (Auto) 4.5 H Baso % (Auto) 1.5 Neut # 2.3 Lymph # 0.5 L [place] # 0.5 Eos # 0.2 Baso # 0.1 PT INR APTT Sodium 139 Potassium 4.7 Chloride 101 Carbon Dioxide 20 L Anion Gap 23 H BUN 46 H Creatinine 9.3 H* D Est GFR ( Amer) 7 Est GFR (Non-Af Amer) 6 Random Glucose 85 Calcium 9.5 Total Bilirubin 0.6 AST 28 ALT 16 L Alkaline Phosphatase 107 Total Protein 8.4 H Albumin 3.9 Globulin 4.5 H Albumin/Globulin Ratio 0.9 L Vancomycin Trough 5.5 04/19/17 10:15 WBC RBC Hgb Hct MCV MCH MCHC RDW Plt Count MPV Neut % (Auto) Lymph % (Auto) [place] % (Auto) Eos % (Auto) Baso % (Auto) Neut # Lymph # [place] # Eos # Baso # PT 12.0 INR 1.2 APTT 35.6 Sodium Potassium Chloride Carbon Dioxide Anion Gap BUN Creatinine Est GFR ( Amer) Est GFR (Non-Af Amer) Random Glucose Calcium Total Bilirubin AST ALT Alkaline Phosphatase Total Protein Albumin Globulin Albumin/Globulin Ratio Vancomycin Trough Assessment & Plan (1) Osteomyelitis Status: Acute (2) Pneumonia Status: Acute (3) ESRD needing dialysis Status: Chronic Priority: High (4) Dehydration Status: Acute (5) Fever Status: Acute - Assessment and Plan (Free Text) Assessment: for possible OR/ intra-op cultures including fungus/ AFB will follow with you
--- NOTE | 2017-04-19 13:31 | RAD ---
HISTORY: pneumonia COMPARISON: 04/08/2017. FINDINGS: LUNGS: There is persistent pulmonary venous congestion. No focal consolidation. PLEURA: No significant pleural effusion identified, no pneumothorax apparent. CARDIOVASCULAR: There is moderate cardiomegaly. Atherosclerotic aortic arch calcifications are present. There is stable position of a right-sided pacemaker. There is stable appearance of a left subclavian stent. OSSEOUS STRUCTURES: No significant abnormalities. VISUALIZED UPPER ABDOMEN: Normal. OTHER FINDINGS: None. IMPRESSION: Persistent pulmonary venous congestion and moderate cardiomegaly. No acute findings.
--- NOTE | 2017-04-19 15:16 | CP.PCM.PN ---
Subjective - Date & Time of Evaluation Date of Evaluation: 04/19/17 Time of Evaluation: 15:13 - Subjective Subjective: RENAL FOLLOW UP NOTE no events overnight Objective - Vital Signs/Intake and Output Vital Signs (last 24 hours): Temp Pulse Resp BP Pulse Ox 97.6 F 87 20 109/74 98 04/19/17 12:13 04/19/17 12:13 04/19/17 12:13 04/19/17 12:13 04/19/17 12:13 - Medications Medications: Current Medications Albuterol/Ipratropium (Duoneb 3 Mg/0.5 Mg (3 Ml) Ud) 3 ml INH RQ6 PRN PRN Reason: Shortness of Breath Last Admin: 04/18/17 18:01 Dose: 3 ml Amiodarone HCl (Cordarone) 100 mg PO DAILY [facility] Last Admin: 04/19/17 08:45 Dose: 100 mg Aspirin (Ecotrin) 81 mg PO DAILY [facility] Last Admin: 04/19/17 08:45 Dose: 81 mg Epoetin Giovanny (Procrit) 4,000 unit SC TTS [facility] Heparin Sodium (Porcine) (Heparin) 5,000 units SC Q12 BETTYE PRN Reason: Protocol Last Admin: 04/19/17 10:05 Dose: 5,000 units Piperacillin Sod/Tazobactam (Sod 2.25 gm/ Sodium Chloride) 100 mls @ 100 mls/ hr IVPB Q8 [facility] Last Admin: 04/19/17 08:46 Dose: 100 mls/hr Vancomycin HCl 750 mg/ Sodium (Chloride) 250 mls @ 250 mls/hr IVPB TTS [facility] Lactic Acid (Lac-Hydrin 12% Cream (140 G)) 1 ea TOP QID [facility] Last Admin: 04/19/17 13:35 Dose: 1 applic Losartan Potassium (Cozaar) 25 mg PO DAILY [facility] Last Admin: 04/19/17 08:45 Dose: 25 mg Oxycodone/Acetaminophen (Percocet 5/325 Mg Tab) 1 tab PO Q4 PRN PRN Reason: pain scale 4-10 Stop: 04/20/17 14:43 Last Admin: 04/19/17 10:33 Dose: 1 tab Promethazine HCl/Codeine (Phenergan/Codeine Oral Syrup) 5 ml PO Q6 PRN PRN Reason: Cough Sevelamer HCl (Renagel) 2,400 mg PO TID [facility] Last Admin: 04/19/17 13:41 Dose: 2,400 mg Vitamin B Complex/Vit C/Folic Acid (Nephro-Jacqueline) 1 tab PO DAILY [facility] Last Admin: 04/19/17 08:46 Dose: 1 tab - Labs Labs: 04/19/17 09:00 04/19/17 09:00 PT 12.0 Seconds (9.8-13.1) 04/19/17 10:15 INR 1.2 (0.9-1.2) 04/19/17 10:15 APTT 35.6 Seconds (25.6-37.1) 04/19/17 10:15 - Constitutional Appears: Non-toxic, No Acute Distress - Head Exam Head Exam: NORMAL INSPECTION - Eye Exam Eye Exam: Normal appearance - ENT Exam ENT Exam: Mucous Membranes Moist - Respiratory Exam Respiratory Exam: NORMAL BREATHING PATTERN - Cardiovascular Exam Cardiovascular Exam: +S1, +S2 - Neurological Exam Neurological Exam: Alert, Oriented x3 - Psychiatric Exam Psychiatric exam: Normal Mood - Skin Skin Exam: Dry Assessment and Plan - Assessment and Plan (Free Text) Plan: ESRD/dm/HTN/anemia/sec hyperpth/pnemonia hd today per schedule, TTS lytes reviewed check a phos level anemia: epo with hd continue binders and renal vitamins BP ok abx for esrd dosing, per primary team
[2017-04-20] MEDS: PIPERACILLIN IVPB SCH (02:38)
[2017-04-20] MEDS: SODIUM CHLORIDE IVPB SCH (02:38)
[2017-04-20] MEDS: TAZOBACTAM IVPB SCH (02:38)
[2017-04-20] MEDS: Oxycodone/Acetaminophen 5/325 mg Tab PO PRN (03:12)
[2017-04-20 05:51] VITALS: BP 118/70; PULSE 63; RESP 19; TEMP 97.6; O2SAT 98
--- NOTE | 2017-04-20 09:34 | PQF GENQUE ---
Dr. Hager, Please specify the type of chronic heart failure in your progress notes: if known Combined systolic and diastolic Diastolic Systolic Other (please specify) Clinically unable to determine Unknown other dxs. include: ESRD dialysis dependent This form is a permanent part of the medical record Clarification of your documentation is requested to better reflect the severity of illness and intensity of treatment of your patient. Indicators present [] Specify: [] [] Specify: [] [] Specify: [] [] Specify: [] Location in the medical record that reflects the above clinical findings: [] Treatment Provided: [] PHYSICIAN'S RESPONSE Based on your medical judgment of the clinical indicators outlined above please clarify the following: [] Practitioner response [] If unable to determine, please check the box, sign and date. Present On Admission (POA) Indicator: [] Present at the time of admission [] Not present at the time of admission [] Clinically Undetermined In responding to this query, please exercise your independent professional judgment. The fact that a question is asked does not imply that any particular answer is desired or expected. Thank you for your clarification on this documentation. If you have any questions please call. * Thank you, Shante Henson RN BSN ext. #[phone] MTDD
== END 2017-04-20 06:50 | disposition short-term general hospital (02) | DRG 291 ==
LOC: H.ER 17:19 → H.ERHOLD 18:03 → H.EROBSV 18:03 → H.MEDSURG1 18:45 → OBSVTOIN 04-17 16:51 → H.MEDSURG1 04-18 14:43 → H.TEL 04-18 16:49
PROVIDERS: ADMIT Internal Medicine Pulmonary Disease; ATTEND Internal Medicine Pulmonary Disease
PROC: 5A1D00Z (ICD-10-PCS; principal; 2017-04-16)
DX: I13.2 Hypertensive heart and chronic kidney disease with heart failure and with stage 5 chronic kidney disease, or end stage renal disease (principal); J18.9 Pneumonia, unspecified organism; E11.22 Type 2 diabetes mellitus with diabetic chronic kidney disease; N18.6 End stage renal disease; N25.81 Secondary hyperparathyroidism of renal origin; I48.2 Chronic atrial fibrillation; G95.9 Disease of spinal cord, unspecified; M48.02 Spinal stenosis, cervical region; M46.22 Osteomyelitis of vertebra, cervical region; I50.32 Chronic diastolic (congestive) heart failure; I12.9 Hypertensive chronic kidney disease with stage 1 through stage 4 chronic kidney disease, or unspecified chronic kidney disease; D63.1 Anemia in chronic kidney disease; Z87.01 Personal history of pneumonia (recurrent); L29.9 Pruritus, unspecified; M54.10 Radiculopathy, site unspecified; Z79.82 Long term (current) use of aspirin; Z79.899 Other long term (current) drug therapy; Z87.891 Personal history of nicotine dependence; Z95.0 Presence of cardiac pacemaker; Z99.2 Dependence on renal dialysis; M54.2 Cervicalgia; M54.5 Low back pain